=== PATIENT | female | born 1950 | race Caucasian/White ===

== ENCOUNTER 2021-08-01 14:19 | Inpatient (IN) | payer MEDICARE, SELFPAY ==
[2021-08-01] VITALS (13 sets, daily range): BP systolic 106–138; BP diastolic 58–90; PULSE 81–93; RESP 20–32; TEMP 36.6–38; O2SAT 86–95; BMI 31.0
--- NOTE | ~2021-08-01 | XR_ITS ---
EXAMINATION: XR chest 1V portable DATE: 08/13/2021 09:30 INDICATION: Increased oxygen needs TECHNIQUE: frontal view of the chest was obtained. COMPARISON: Chest radiograph dated 08/09/2021 FINDINGS: No significant change in patchy airspace opacities throughout both lungs consistent with COVID pneumo britton. No pleural effusion or pneumothorax. The cardiomediastinal silhouette is normal. IMPRESSION: 1. No significant change in diffuse patchy bilateral lung disease consistent with COVID pneumonia. Reviewed, dictated and finalized at location A. ITAL CLERK IMPRESSION: 1. No significant change in diffuse patchy bilateral lung disease consistent wi th COVID pneumonia.
--- NOTE | ~2021-08-01 | US_ITS ---
EXAMINATION: US venous doppler LE EXAM DATE: 08/15/2021 09:01 INDICATION: Pulmonary embolism. TECHNIQUE: Multiple grayscale, color flow and Doppler images of the lower extremity deep venous syste ms bilaterally were obtained and reviewed. Correlation is made to CT pulmonary scan 08/13/2021. FINDINGS: RIGHT SIDE Common femoral: -------- Normal. Profunda femoral: ------- Normal. Femoral: Normal. Popliteal: Normal. Posterior tibial: --------- Normal. Peroneal: Paired, 1 thrombosed. Gastrocnemius: Not visualized. Soleus: Not visualized. Greater saphenous: ----- Normal. Lesser saphenous: ------ Not visualized. LEFT SIDE Common femoral: -------- Normal. Profunda femoral: ------- Normal. Femoral: Normal. Popliteal: Normal. Posterior tibial: --------- Normal. Peroneal: Normal. Gastrocnemius: Not visualized. Soleus: Not visualized. Greater saphenous: ----- Normal. Lesser saphenous: ------ Not visualized. IMPRESSION: 1. Positive for right peroneal DVT. 2. No left DVT. Finding of pulmonary embolic disease was already verbally conveyed as per pulmonary CT report from 2 days ago. Reviewed, dictated and finalized at location A. SANDER IMPRESSION: 1. Positive for right peroneal DVT. 2. No left DVT. Finding of pulmonary embolic disease was already verbally conveyed as per pulcooper persaud CT report from 2 days ago.
--- NOTE | ~2021-08-01 | CT_ITS ---
EXAMINATION: CTA chest PE protocol DATE: 08/13/2021 18:41 INDICATION: Hypoxia TECHNIQUE: Computed tomography angiography (CTA) of the chest was performed with 100 mL Omnipaque-350 intravenous contrast timed to evaluate the pulmonary arteries. Coronal maximum intensity projection 3D-reconstructions were created by the technologist. The dose-length product (DLP) was 297.57 mGy-cm. Automated exposure control and iterative reconstruction technique were employed. COMPARISON: None. FINDINGS: The pulmonary arteries are well-opacified. There are acute pulmonary emboli in the right up per lobe. There are groundglass opacities throughout all lung zones, worst in the mid and lower lung zones. There is no pleural effusion or pneumothorax. The heart size is normal. Mediastinal and bilate ral hilar lymphadenopathy is likely reactive. There is moderate thoracic spondylosis. IMPRESSION: 1. Acute pulmonary emboli in the right upper lobe. 2. Diffuse lung disease, consistent with COVID 19 pneumonia. These findings were discussed with Gladys Marrero RN at 1701 hours on 08/13/2021. Reviewed, dictated and finalized at location F. WARE TECHNICAL LEAD IMPRESSION: 1. Acute pulmonary emboli in the right upper lobe. 2. Diffuse lung disease, consistent with COVID 19 pneumonia. These findings were discussed with Gladys Marrero RN at 1701 hours on 08/13/19 22.
--- NOTE | ~2021-08-01 | XR_ITS ---
XR chest 1V portable DATE: 08/19/2021 13:00 INDICATION: Covid pneumonia TECHNIQUE: Portable upright AP chest on 08/19/2021 at 1246 hours COMPARISON: 08/13/2021 CTA chest 08/13/2021 portable AP chest FINDINGS: There is extensive patchy bilateral pulmonary infiltrate with little interval improvement s delmy 08/13/2021. Heart size appears normal. No pleural effusion or pneumothorax. Diffuse osteopenia. IMPRESSION: Persistent extensive bilateral pulmonary infiltrates Reviewed, dictated and finalized at location A. DENT PROGRAM SPECIALIST
--- NOTE | ~2021-08-01 | XR_ITS ---
EXAMINATION: XR chest 1V portable EXAM DATE: 08/09/2021 06:17 INDICATION: COVID . TECHNIQUE: Portable AP frontal chest x-ray was obtained. Comparison is made to prior examination from 08/01/2021. FINDINGS: Diffuse peripheral predominant airspace disease consistent with COVID pneumonia, has increa sed compared to 08/01. No pneumothorax or pleural effusion. Cardiomediastinal silhouette is normal. T here are no osseous abnormalities identified. IMPRESSION: Progression of diffuse bilateral COVID pneumonia. Reviewed, dictated and finalized at location G. RITY SALES CONSULTANT
--- NOTE | ~2021-08-01 | XR_ITS ---
EXAMINATION: XR chest 2V EXAM DATE: 08/01/2021 14:54 INDICATION: Shortness of breath and cough for 2 weeks. TECHNIQUE: Frontal and lateral projections of the chest obtained and reviewed. There is no prior domingo dy for comparison. FINDINGS: The lungs are hyperinflated which can be seen with chronic obstructive pulmonary disease ( a clinical diagnosis of functional impairment), but is not diagnostic of it. There is ill-defined jill ateral patchy regions of airspace disease. Some linear regions of atelectasis within this. Differenti al diagnosis includes subacute COVID pneumonia, chronic interstitial lung disease with or without sup erimposed viral or other infection. No pneumothorax or pleural effusion. Cardiomediastinal silhouette is normal. IMPRESSION: Ill-defined patchy basilar predominant atelectasis, pneumonia and/or chronic interstitial lung disease. Reviewed, dictated and finalized at location A. DWORKS DRAFTER IMPRESSION: Ill-defined patchy basilar predominant atelectasis, pneumonia and/o r chronic interstitial lung disease.
--- NOTE | ~2021-08-01 | US_ITS ---
EXAMINATION: US right upper quadrant DATE: 08/09/2021 08:28 INDICATION: Abnormal liver function tests. TECHNIQUE: Multiple grayscale and Doppler ultrasound images of the abdomen were obtained. COMPARISON: CT abdomen 12/12/2005 FINDINGS: The visualized portions of the head, body, and tail of the pancreas are normal. The liver i s normal without focal lesion. No liver surface nodularity. The gallbladder is normal in size. No gal lstones or gallbladder wall thickening. There was no sonographic Bear sign. The common duct is norm al and measures 2 mm. IMPRESSION: 1. Normal right upper quadrant ultrasound. Reviewed, dictated and finalized at location A. TIES ANALYST
--- NOTE | 2021-08-01 14:33 | ECG_ITS ---
Measurements Intervals [place] Rate: 86 P: 50 [place]: 136 QRS: 8 QRSD: 71 T: 5 QT: 332 QTc: 397 Interpretive Statements SINUS RHYTHM POSSIBLE LEFT ATRIAL ENLARGEMENT ANTEROSEPTAL INFARCT, AGE INDETERMINATE BORDERLINE ST-T WAVE ABNORMALITY- INFERIOR LEADS BASELINE ARTIFACT- I, II, III, AVR, AVL, AVF, V1, V5-V6 ABNORMAL ECG Electronically Signed On 08-01-2021 15:44:37 ROOF PANEL HANGER by Avery Ng D.O.
[2021-08-01 14:58] LABS: Hematocrit 38.6 % (37.0-47.0); Hemoglobin 13.4 g/dL (12.0-15.0); Immature Platelet Fraction Pct 5.1 % (0.9-11.2); Mean Corpuscular HGB Conc 34.7 g/dl (32-36); Mean Corpuscular Hemoglobin 31.5 pg (26-34); Mean Corpuscular Volume 90.6 fl (80-100); Mean Platelet Volume 10.4 fl (7.4-10.4); Platelet Count Result 117 k/mm3 (150-375); Red Blood Count 4.26 M/mm3 (4.2-5.4); Red Cell Distribution Width 12.6 % (11.5-14.5); White Blood Count 3.2 K/mm3 (4.5-10.0)
[2021-08-01 15:14] LABS: Alanine Aminotransferase 116 U/L (4-35); Albumin Level 3.7 g/dL (3.5-5.1); Alkaline Phosphatase 108 U/L (38-126); Anion Gap 11 mmol/L (8-16); Aspartate Amino Transferase 163 U/L (14-36); Bilirubin,Total 0.8 mg/dL (0.2-1.3); Blood Urea Nitrogen 18 mg/dL (7-17); Carbon Dioxide 20 mmol/L (22-30); Chloride 98 mmol/L (98-107); Estimated CRCL calculation 53 ml/min; Estimated Glomerular Filt Rate > 60; Glucose 108 mg/dL (65-110); Potassium 4.2 mmol/L (3.4-5.0); Sodium 129 mmol/L (137-145)
--- NOTE | 2021-08-01 16:34 | ED.SOB ---
HPI - SOB/Dyspnea General Chief Complaint: Shortness of Breath/Dyspnea Stated Complaint: low O2 Time Seen by Provider: 08/01/21 15:29 Source: patient and family Mode of arrival: ambulatory Limitations: no limitations History of Present Illness HPI Narrative: 70-year-old with no major medical problems here with complaints of cough, on and off fever for last couple days. She states cough is productive in nature. She denies any nausea or vomiting. She is denies any Covid exposure. MD elicited complaint: shortness of breath and cough Onset (ago): day(s) (2) Timing: constant Severity: mild Exacerbating factors: nothing Relieving factors: nothing Associated symptoms: sputum production Treatment prior to arrival: none Related Data Home oxygen amount: none Allergies Allergy/AdvReac Type Severity Reaction Status Date / Time No Known Allergies Allergy Verified 08/01/21 14:26 Review of Systems Review of Systems: All systems reviewed & are unremarkable except as noted in HPI and below Constitutional: Constitutional: Reports no additional constitutional complaints Eyes: Eyes: Reports no additional eye complaints ENT: Reports system reviewed and no additional complaints, except as documented Cardiovascular: Cardiovascular: Reports no additional cardiovascular complaints Respiratory: Respiratory: Reports as per HPI Gastrointestinal: Gastrointestinal: Reports no additional gastrointestinal complaints Genitourinary: Genitourinary: Reports no additional female genitourinary complaints Musculoskeletal: Musculoskeletal: Reports no additional musculoskeletal complaints Neurologic: Reports system reviewed and no additional complaints, except as documented Exam Narrative: GENERAL: Well-appearing, well-nourished, and in no acute distress. HEAD: Normocephalic, atraumatic. EYES: PERRLA and EOMI. NECK: Supple. CHEST: Clear to auscultation. No respiratory distress. HEART: Regular rate and rhythm. No murmur heard. Normal peripheral pulses. ABDOMEN: Soft, nontender, nondistended, normal active bowel sounds. EXTREMITIES: Normal range of motion. No edema. SKIN: Warm, dry, no rash. NEURO: No focal deficits. Alert and oriented x3. PSYCH: Normal mood and affect. Course Course Emergency Course: Patient comfortably sitting on the bed in no discomfort informed her about her lab work, x-ray findings. SPO2 levels are 95 to 96% on room air. I suspect this more like over 10 community-acquired pneumonia we will do a RT-PCR for Covid. Advised her to follow-up with her primary doctor for the results. Vital Signs Vital signs: Vital Signs Temperature 37.0 C 08/01/21 14:27 Pulse Rate 89 08/01/21 14:27 Respiratory Rate 20 08/01/21 14:27 Blood Pressure 122/71 08/01/21 14:27 Pulse Oximetry 95 08/01/21 14:27 Temperature 37.0 C 08/01/21 14:27 Pulse Rate 88 08/01/21 16:17 Respiratory Rate 24 H 08/01/21 16:17 Blood Pressure 113/84 08/01/21 16:17 Pulse Oximetry 95 08/01/21 16:17 MDM - SOB/Dyspnea Lab Data Result diagrams: 08/01/21 14:42 08/01/21 14:42 Labs: Lab Results 08/01/21 08/01/21 Range/Units 14:42 14:42 WBC 3.2 L (4.5-10.0) K/mm3 RBC 4.26 (4.2-5.4) M/mm3 Hgb 13.4 (12.0-15.0) g/dL Hct 38.6 (37.0-47.0) % MCV 90.6 (80-100) fl MCH 31.5 (26-34) pg MCHC 34.7 (32-36) g/dl RDW 12.6 (11.5-14.5) % Plt Count 117 L (150-375) k/mm3 MPV 10.4 (7.4-10.4) fl Immature Gran % (Auto) Not Reportable Neut % (Auto) Not Reportable Lymph % (Auto) Not Reportable [place]cher % (Auto) Not Reportable Eos % (Auto) Not Reportable Baso % (Auto) Not Reportable Lymph # (Auto) Not Reportable [place]cher # (Auto) Not Reportable Eos # (Auto) Not Reportable Baso # (Auto) Not Reportable Abs Immat Gran (auto) Not Reportable Absolute Neuts (auto) Not Reportable Absolute Nucleated RBC Not Reportable Nucleated RBC % Not R
[2021-08-01 16:38] LABS: Band Neutrophils Percent 29 % (0-6); Lymphocytes Absolute Manual 0.57 K/mm3 (1.1-4.5); Monocytes Absolute Manual 0.19 K/mm3 (0.1-0.90); Monocytes Percent Manual 6 % (3-9); Neutrophils Absolute Manual 2.43 K/mm3 (1.7-7.2); Neutrophils Percent Manual 47 % (46-73); Total Cells Counted 100
[2021-08-01 16:39] LABS: Platelet Estimate Decreased (Adequate)
[2021-08-01 16:40] LABS: Smudge Cells FEW
--- NOTE | 2021-08-01 18:55 | PC.NURSE ---
This patient, Tamara Lion, was admitted to 3 Med Surg Room 309-01. Patient/family oriented to hospital policies and general routines including ID bracelet, bed and alarms, visiting hours, pain management, procedures, bathroom and other care routines, personal items, smoking policy, room service/diet, and visiting hours. Information on how to activate the Rapid Response Team has been discussed. Patient/Family are encouraged to report perceived risks to care and to ask questions if they do not understand what they are told or what they should do.
[2021-08-01] MEDS: SODIUM CHLORIDE 0.9% IV 1,000 ML 75 ML IV CONT (20:46)
[2021-08-01 21:35] LABS: Lactic Acid Reflex 1.2 mmol/L (0.7-2.1)
[2021-08-01 21:40] LABS: D Dimer 2.16 ug/mL (<0.48)
[2021-08-01 22:11] LABS: Lactate Dehydrogenase 2066 U/L (313-618)
[2021-08-02] VITALS (10 sets, daily range): BP systolic 105–121; BP diastolic 54–68; PULSE 83–89; RESP 16–18; TEMP 35.8–38; O2SAT 86–94
[2021-08-02] MEDS: ACETAMINOPHEN 325 MG TABLET 650 MG PO (00:01)
--- NOTE | 2021-08-02 04:32 | PM.IMHP ---
H&P: HPI History of Present Illness Date/Time: 08/02/21 04:32 Chief Complaint: Cough and shortness of breath Narrative: 70-year-old reportedly healthy female who presented to the ER with cough shortness for breath and diarrhea for the last 10 days. Patient reports that the cough is productive of clear mucus. She has not have any known COVID exposures. But does state that her had been having a cough for several days before she developed a cough. She has not vaccinated against COVID-19. She reports that she has been using her mask when out in public. She denies any loss of sense of taste or smell. She had noticed occasional chills but had not measured a temperature. She has had intermittent fevers up to 100.4 since admission. She denies any nausea, vomiting or diarrhea. She has had decreased oral intake. She has been having intermittent mild headaches. She denies any arthralgias or myalgias. She does have occasional stress urinary incontinence but this is unchanged from baseline. She has not taken any [id number] medications for symptoms. She reports that she is relatively healthy. She has not followed up with her primary care physician in at least 5 years. Review of Systems Review of Systems: 12 systems were reviewed with pertinent positives and negatives per HPI. Except as documented in the HPI, all other systems were reviewed and are negative. [facility] Past Medical History Medical History (Updated 08/02/21 @ 08:11 by Sera Guillen DO) No significant medical problems Surgical History Surgical History (Updated 08/02/21 @ 08:11 by Sera Guillen DO) No history of previous surgery Family History Family History (Updated 08/02/21 @ 08:12 by Sera Guillen DO) Father , Age 75 Fletcher's lung Mother , Age 70 Heart failure Social History Social History (Updated 08/02/21 @ 08:14 by Sera Guillen DO) Social History: She lives at home with her of 50 years. 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 She has 2 adult sons who are in good health. She rarely drinks alcohol and only in small amounts. Primary care physician: Dr. Mendoza Graff Code status: Full code Surrogate decision maker: Smoking status: Never smoker Alcohol intake: former Substance use: never Spiritual care concerns: No Comments She has 1 brother who of a drug overdose in his 20s. She had another brother of electrocution in his 30s. She has 1 older brother who is still living and in good health. Meds Home Medications and Allergies Home Medications Medication Instructions Recorded Confirmed Type No Home Medications 08/01/21 08/01/21 History Allergies Allergy/AdvReac Type Severity Reaction Status Date / Time No Known Allergies Allergy Verified 08/01/21 14:26 Vital Signs Vital Signs - 24 hr 08/01/21 14:27 08/01/21 14:33 08/01/21 15:00 Temperature 98.6 F Pulse Rate 89 87 Respiratory Rate 20 Blood Pressure 122/71 Pulse Oximetry 95 95 08/01/21 16:17 08/01/21 17:01 08/01/21 17:03 Temperature Pulse Rate 88 88 87 Respiratory Rate 24 H 25 H 25 H Blood Pressure 113/84 138/67 Pulse Oximetry 95 93 92 08/01/21 17:36 08/01/21 17:46 08/01/21 17:47 Temperature Pulse Rate 88 92 81 Respiratory Rate 32 H 20 28 H Blood Pressure 106/90 Pulse Oximetry 90 87 L 86 L 08/01/21 18:00 08/01/21 18:02 08/01/21 18:50 Temperature 97.9 F Pulse Rate 93 87 93 Respiratory Rate 27 H 22 H 20 Blood Pressure 121/63 134/58 L Pulse Oximetry 89 L 87 L 91 08/01/21 23:44 08/02/21 00:01 08/02/21 04:00 Temperature 100.4 F H 100.4 F H 99.0 F Pulse Rate 89 84 Respiratory Rate 20 18 Blood Pressure 123/66 105/54 L Pulse Oximetry 90 90 Exam Narrative: PHYSICAL EXAM: WEIGHT 79.5 kg BMI 31 General: No acute distress, well-developed well-nourished HEENT: Mucous membranes are
[2021-08-02 06:39] LABS: Hematocrit 38.9 % (37.0-47.0); Hemoglobin 13.3 g/dL (12.0-15.0); Immature Granulocyte Absolute 0.03 K/mm3 (0.00-0.031); Immature Granulocyte Percent A 0.8 % (0-0.5); Immature Platelet Fraction Pct 5.6 % (0.9-11.2); Lymphocytes Absolute Auto 0.65 K/mm3 (0.9-3.2); Lymphocytes Percent Auto 18.2 % (18.3-44.2); Mean Corpuscular HGB Conc 34.2 g/dl (32-36); Mean Corpuscular Hemoglobin 31.8 pg (26-34); Mean Corpuscular Volume 93.1 fl (80-100); Mean Platelet Volume 10.5 fl (7.4-10.4); Monocytes Absolute Auto 0.1 K/mm3 (0.1-0.6); Monocytes Percent Auto 3.4 % (2.6-8.5); Neutrophils Absolute Auto 2.8 K/mm3 (1.3-6.7); Neutrophils Percent Auto 77.6 % (45.5-73.1); Platelet Count Result 138 k/mm3 (150-375); Red Blood Count 4.18 M/mm3 (4.2-5.4); Red Cell Distribution Width 12.7 % (11.5-14.5); White Blood Count 3.6 K/mm3 (4.5-10.0)
[2021-08-02 06:56] LABS: Alanine Aminotransferase 116 U/L (4-35); Albumin Level 3.3 g/dL (3.5-5.1); Alkaline Phosphatase 141 U/L (38-126); Anion Gap 9 mmol/L (8-16); Aspartate Amino Transferase 149 U/L (14-36); Bilirubin,Total 0.9 mg/dL (0.2-1.3); Blood Urea Nitrogen 13 mg/dL (7-17); Calcium 7.8 mg/dL (8.4-10.2); Carbon Dioxide 22 mmol/L (22-30); Chloride 101 mmol/L (98-107); Estimated CRCL calculation 63 ml/min; Estimated Glomerular Filt Rate > 60; Glucose 126 mg/dL (65-110); Potassium 3.8 mmol/L (3.4-5.0); Sodium 132 mmol/L (137-145)
[2021-08-02] MEDS: SODIUM CHLORIDE 0.9% IV 1,000 ML 75 ML IV CONT (10:27)
[2021-08-02] MEDS: WATER FOR IRRIGATION, STERILE 1,000 ML BOTTLE 1000 ML (10:28)
[2021-08-02] MEDS: ENOXAPARIN 40 MG/0.4 ML SYRINGE SUB-Q (10:28)
--- NOTE | 2021-08-02 13:40 | PM.IMPN ---
Progress Note: A&P Assessment and Plan (1) Sepsis with acute hypoxic respiratory failure: Qualifiers: Sepsis type: sepsis due to unspecified organism Severe sepsis shock status: without septic shock Qualified Code(s): A41.9 - Sepsis, unspecified organism; R65.20 - Severe sepsis without septic shock; J96.01 - Acute respiratory failure with hypoxia Code(s): A41.9 - Sepsis, unspecified organism; R65.20 - Severe sepsis without septic shock; J96.01 - Acute respiratory failure with hypoxia Status: Acute (2) Bandemia: Code(s): D72.825 - Bandemia Status: Acute (3) Suspected COVID-19 virus infection: Code(s): Z20.822 - Contact with and (suspected) exposure to COVID-19 Status: Acute (4) Pneumonia: Qualifiers: Laterality: unspecified laterality Lung location: unspecified part of lung Pneumonia type: due to unspecified organism Qualified Code(s): J18.9 - Pneumonia, unspecified organism Code(s): J18.9 - Pneumonia, unspecified organism Status: Acute Additional Plan # acute hypoxic respiratory failure # community-acquired pneumonia -patient has dyspnea, bandemia with leukopenia WBC 3.6 -chest x-ray shows patchy basilar infiltrates pneumonia versus atelectasis -antibiotics: Continue Rocephin and azithromycin -keep oxygen saturation greater than 90%, currently on 10 L oxygen by nasal cannula -COVID-19 test pending -with significant hypoxia continue Decadron -patient was on IV fluids 75 cc an hour, will stop as patient is tolerating p.o. # transaminitis -will continue to trend, slightly elevated AST and ALT -from sepsis and bandemia? # mild hyponatremia -continue to trend sodium 132 # PUI for COVID-19 -patient unvaccinated, COVID-19 test pending Diet: Regular DVT prophylaxis: Lovenox Code status: Full code Disposition: Pending of course, wean oxygen Time Spent With Patient Time with patient: 15 - 25 minutes Subjective Date/time seen: 08/02/21 13:40 patient seen examined she has no new complaints today. Breathing comfortably on 10 L high-flow oxygen. She is not vaccinated for COVID-19, test is still pending. Continuing on community-acquired pneumonia treatment with Rocephin azithromycin. On Decadron possible COVID-19 considering her level of hypoxia. Patient is not taking any home medications. Review of Systems Review of Systems: All systems reviewed & are unremarkable except as noted in HPI and below Exam Narrative: - GENERAL: Pleasant older woman in acute distress. Well-nourished. - EYES: EOMI. Anicteric. - HENT: Moist mucous membranes. - LUNGS: Clear to auscultation bilaterally, nonlabored respirations. - CARDIOVASCULAR: Regular rate and rhythm. No murmur. No JVD. - ABDOMEN: Soft, non-tender and non-distended. No palpable masses. - EXTREMITIES: No edema. Peripheral pulses 2+. Non-tender. - NEUROLOGIC: No focal neurological deficits. CN II-XII grossly intact. - PSYCHIATRIC: Awake, Alert and oriented x 3. Appropriate mood and affect. - SKIN: No rashes or lesions. Warm. - LYMPH: No cervical lymphadenopathy. Objective Data Vital Signs Vital Signs: Vital Signs - 24 hr 08/01/21 14:27 08/01/21 14:33 08/01/21 15:00 Temperature 37.0 C Pulse Rate 89 87 Respiratory Rate 20 Blood Pressure 122/71 Pulse Oximetry 95 95 08/01/21 16:17 08/01/21 17:01 08/01/21 17:03 Temperature Pulse Rate 88 88 87 Respiratory Rate 24 H 25 H 25 H Blood Pressure 113/84 138/67 Pulse Oximetry 95 93 92 08/01/21 17:36 08/01/21 17:46 08/01/21 17:47 Temperature Pulse Rate 88 92 81 Respiratory Rate 32 H 20 28 H Blood Pressure 106/90 Pulse Oximetry 90 87 L 86 L 08/01/21 18:00 08/01/21 18:02 08/01/21 18:50 Temperature 36.6 C Pulse Rate 93 87 93 Respiratory Rate 27 H 22 H 20 Blood Pressure 121/63 134/58 L Pulse Oximetry 89 L 87 L 91 08/01/21 23:44 08/02/21 00:01 08/02/21 01:01 Temperature 38.0 C H 38.0 C H 37.2 C Pulse Rate 89
[2021-08-02 14:05] LABS: SARS-CoV-2 RNA PCR Positive
[2021-08-03 00:15] VITALS: BP 118/67; PULSE 74; RESP 16; TEMP 36.5; O2SAT 94
[2021-08-03 04:10] VITALS: BP 103/71; PULSE 76; RESP 16; TEMP 36.4; O2SAT 100
[2021-08-03 07:33] LABS: Basophils Percent Auto 0.2 % (0.2-1.2); Hematocrit 38.3 % (37.0-47.0); Hemoglobin 12.8 g/dL (12.0-15.0); Immature Granulocyte Absolute 0.04 K/mm3 (0.00-0.031); Immature Granulocyte Percent A 0.7 % (0-0.5); Lymphocytes Absolute Auto 0.39 K/mm3 (0.9-3.2); Mean Corpuscular HGB Conc 33.4 g/dl (32-36); Mean Corpuscular Hemoglobin 30.9 pg (26-34); Mean Corpuscular Volume 92.5 fl (80-100); Mean Platelet Volume 10.6 fl (7.4-10.4); Monocytes Absolute Auto 0.1 K/mm3 (0.1-0.6); Monocytes Percent Auto 2.5 % (2.6-8.5); Neutrophils Percent Auto 89.6 % (45.5-73.1); Platelet Count Result 165 k/mm3 (150-375); Red Blood Count 4.14 M/mm3 (4.2-5.4); Red Cell Distribution Width 12.6 % (11.5-14.5); White Blood Count 5.6 K/mm3 (4.5-10.0)
[2021-08-03 07:45] LABS: Anion Gap 7 mmol/L (8-16); Blood Urea Nitrogen 12 mg/dL (7-17); Carbon Dioxide 25 mmol/L (22-30); Chloride 103 mmol/L (98-107); Estimated CRCL calculation 73 ml/min; Estimated Glomerular Filt Rate > 60; Glucose 152 mg/dL (65-110); Potassium 4.1 mmol/L (3.4-5.0); Sodium 135 mmol/L (137-145)
[2021-08-03 08:00] VITALS: BP 127/60; PULSE 78; RESP 20; TEMP 36.2; O2SAT 92
[2021-08-03 09:00] LABS: Alanine Aminotransferase 91 U/L (4-35); Estimated CRCL calculation 73 ml/min; Estimated Glomerular Filt Rate > 60
[2021-08-03 09:09] LABS: INR 1.1; Prothrombin Time 14.1 Seconds (11.1-14.7)
[2021-08-03] MEDS: ENOXAPARIN 40 MG/0.4 ML SYRINGE SUB-Q (10:58)
[2021-08-03 12:00] VITALS: BP 126/61; PULSE 92; RESP 20; TEMP 36.9; O2SAT 92
--- NOTE | 2021-08-03 13:23 | PM.IMPN ---
Progress Note: A&P Assessment and Plan (1) Sepsis with acute hypoxic respiratory failure: Qualifiers: Sepsis type: sepsis due to unspecified organism Severe sepsis shock status: without septic shock Qualified Code(s): A41.9 - Sepsis, unspecified organism; R65.20 - Severe sepsis without septic shock; J96.01 - Acute respiratory failure with hypoxia Code(s): A41.9 - Sepsis, unspecified organism; R65.20 - Severe sepsis without septic shock; J96.01 - Acute respiratory failure with hypoxia Status: Acute (2) Pneumonia due to COVID-19 virus: Code(s): U07.1 - COVID-19; J12.82 - Pneumonia due to coronavirus disease 2018 Status: Acute Additional Plan # COVID-19 pneumonia # acute hypoxic respiratory failure -COVID-19 positive 08/02/21, unvaccinated -keep oxygen saturation greater than 90%, currently on 15 L oxygen by nasal cannula -treatment plan: Decadron 10 day course of 6 mg, patient refused remdesivir, patient okay with baricitinib starting on 08/03/2021 -patient has dyspnea, bandemia with leukopenia WBC 3.6, leukopenia resolved -chest x-ray shows patchy basilar infiltrates pneumonia versus atelectasis -antibiotics: Stopping antibiotics with no sputum production and COVID 19 diagnosis, afebrile # transaminitis -will continue to trend, slightly elevated AST and ALT -stable, will continue to trend while on baricitinib, transaminitis occured prior to medication # mild hyponatremia -continue to trend sodium 135, improved Diet: Regular DVT prophylaxis: Lovenox Code status: Full code, patient will talk to family and readdress goals of care Disposition: Pending of course, wean oxygen Subjective Date/time seen: 08/03/21 13:23 Patient seen examined. She has been diagnosed with COVID-19 on the PCR test. Currently on 15 L of oxygen by nasal cannula. We discussed COVID-19 treatment plan, she refuses remdesivir absolutely. She is okay with baricitinib and Decadron. We discussed code status and possible intubation, she says she does not want to be on a ventilator however to would like to talk to her family 1st. Will readdress code status later, continue full code for now. We will continue supportive care for COVID 19 diagnosis. Patient denies fever, chills, nausea, vomiting, diarrhea. She feels good despite being hypoxic. Review of Systems Review of Systems: All systems reviewed & are unremarkable except as noted in HPI and below Exam Narrative: - GENERAL: Pleasant older woman in acute distress. Well-nourished. - EYES: EOMI. Anicteric. - HENT: Moist mucous membranes. - LUNGS: Clear to auscultation bilaterally, using accessory muscles to breathe, currently on 15 L of oxygen by nasal cannula. - CARDIOVASCULAR: Regular rate and rhythm. No murmur. No JVD. - ABDOMEN: Soft, non-tender and non-distended. No palpable masses. - EXTREMITIES: No edema. Peripheral pulses 2+. Non-tender. - NEUROLOGIC: No focal neurological deficits. CN II-XII grossly intact. - PSYCHIATRIC: Awake, Alert and oriented x 3. Appropriate mood and affect. - SKIN: No rashes or lesions. Warm. - LYMPH: No cervical lymphadenopathy. Objective Data Vital Signs Vital Signs: Vital Signs - 24 hr 08/02/21 13:43 08/02/21 20:00 08/03/21 00:15 Temperature 36.7 C 36.2 C L 36.5 C Pulse Rate 89 85 74 Respiratory Rate 18 16 16 Blood Pressure 108/68 121/62 118/67 Pulse Oximetry 90 94 94 08/03/21 04:10 08/03/21 08:00 Temperature 36.4 C L 36.2 C L Pulse Rate 76 78 Respiratory Rate 16 20 Blood Pressure 103/71 127/60 Pulse Oximetry 100 92 Intake/Output Intake/Output: Intake & Output 07/31/21 08/01/21 08/02/21 08/03/21 23:59 23:59 23:59 23:59 Intake Total 50 2520 300 Output Total 1400 Balance 50 1120 300 Meds/Results Medications: Active Medications Generic Name Dose Route Start Last Admin Trade Name Freq PRN Reason Stop Dose Admin Acetaminophen 650 mg 08/01/21 17:16 08/02/21 00:01 Acetaminophen 325 Mg Tablet P
[2021-08-03 16:00] VITALS: BP 116/67; PULSE 80; RESP 18; TEMP 36.6; O2SAT 94
[2021-08-03 20:00] VITALS: BP 133/76; PULSE 83; RESP 18; TEMP 36.5; O2SAT 95
[2021-08-04] VITALS (12 sets, daily range): BP systolic 112–144; BP diastolic 53–91; PULSE 70–92; RESP 20–24; TEMP 35.6–37; O2SAT 89–95
[2021-08-04 07:08] LABS: Basophils Percent Auto 0.2 % (0.2-1.2); Hematocrit 38.9 % (37.0-47.0); Hemoglobin 13.3 g/dL (12.0-15.0); Immature Granulocyte Absolute 0.08 K/mm3 (0.00-0.031); Lymphocytes Absolute Auto 0.51 K/mm3 (0.9-3.2); Lymphocytes Percent Auto 6.3 % (18.3-44.2); Mean Corpuscular HGB Conc 34.2 g/dl (32-36); Mean Corpuscular Hemoglobin 31.3 pg (26-34); Mean Corpuscular Volume 91.5 fl (80-100); Monocytes Absolute Auto 0.3 K/mm3 (0.1-0.6); Monocytes Percent Auto 3.2 % (2.6-8.5); Neutrophils Absolute Auto 7.2 K/mm3 (1.3-6.7); Neutrophils Percent Auto 89.3 % (45.5-73.1); Platelet Count Result 220 k/mm3 (150-375); Red Blood Count 4.25 M/mm3 (4.2-5.4); Red Cell Distribution Width 12.7 % (11.5-14.5); White Blood Count 8.1 K/mm3 (4.5-10.0)
[2021-08-04 07:16] LABS: Alanine Aminotransferase 100 U/L (4-35); Albumin Level 3.1 g/dL (3.5-5.1); Alkaline Phosphatase 166 U/L (38-126); Anion Gap 8 mmol/L (8-16); Aspartate Amino Transferase 84 U/L (14-36); Bilirubin,Total 1.1 mg/dL (0.2-1.3); Blood Urea Nitrogen 16 mg/dL (7-17); CRP 6.7 mg/dL (<1.0); Calcium 8.2 mg/dL (8.4-10.2); Carbon Dioxide 22 mmol/L (22-30); Chloride 105 mmol/L (98-107); Estimated CRCL calculation 73 ml/min; Estimated Glomerular Filt Rate > 60; Glucose 139 mg/dL (65-110); Sodium 135 mmol/L (137-145)
[2021-08-04 07:25] LABS: Prothrombin Time 13.4 Seconds (11.1-14.7)
[2021-08-04 07:27] LABS: D Dimer 3.99 ug/mL (<0.48)
[2021-08-04] MEDS: ENOXAPARIN 40 MG/0.4 ML SYRINGE SUB-Q (09:46)
--- NOTE | 2021-08-04 14:20 | PM.IMPN ---
Progress Note: A&P Assessment and Plan (1) Pneumonia due to COVID-19 virus: Code(s): U07.1 - COVID-19; J12.82 - Pneumonia due to coronavirus disease 2019 Status: Acute (2) Sepsis with acute hypoxic respiratory failure: Qualifiers: Sepsis type: sepsis due to unspecified organism Severe sepsis shock status: without septic shock Qualified Code(s): A41.9 - Sepsis, unspecified organism; R65.20 - Severe sepsis without septic shock; J96.01 - Acute respiratory failure with hypoxia Code(s): A41.9 - Sepsis, unspecified organism; R65.20 - Severe sepsis without septic shock; J96.01 - Acute respiratory failure with hypoxia Status: Acute Additional Plan # COVID-19 pneumonia # acute hypoxic respiratory failure -COVID-19 positive 08/02/21, unvaccinated -keep oxygen saturation greater than 90%, currently on 15 L oxygen by nasal cannula and 15 L non-rebreather, switching to airvo -treatment plan: Decadron 10 day course of 6 mg, patient refused remdesivir and baricitinib -chest x-ray shows patchy basilar infiltrates pneumonia versus atelectasis -she still full code, did not want intubation but also does not want to so she is listed as full code # transaminitis -will continue to trend, slightly elevated AST and ALT -stable, will continue to trend while on baricitinib, transaminitis occured prior to medication # mild hyponatremia -continue to trend sodium 135, improved Diet: Regular DVT prophylaxis: Lovenox Code status: Full code, patient will talk to family and readdress goals of care Disposition: Moved to IMU for Airvo Social: I called update the who did not package pick up. Patient asked me to talk to her son however information is not in the chart for his phone number Subjective Date/time seen: 08/04/21 14:20 Patient seen examined. She refuses remdesivir and baricitinib. She is okay with the dexamethasone which we are continuing. Patient oxygen requirements have gone up to now 15 L high-flow oxygen and 15 L non-rebreather. Will moved to IMU for further management on Airvo. Patient asked me to talk to her son however I cannot find any information of the son's phone number in the chart. Patient denies fever, chills, nausea, vomiting, diarrhea. She endorses dyspnea on exertion, needs to work very hard to breathe. Review of Systems Review of Systems: All systems reviewed & are unremarkable except as noted in HPI and below Exam Narrative: - GENERAL: Pleasant older woman in acute respiratory distress. - EYES: EOMI. Anicteric. - HENT: Moist mucous membranes. - LUNGS: Clear to auscultation bilaterally, using accessory muscles to breathe, currently on 15 L of oxygen by nasal cannula and 15 L non-rebreather. - CARDIOVASCULAR: Regular rate and rhythm. No murmur. No JVD. - ABDOMEN: Soft, non-tender and non-distended. No palpable masses. - EXTREMITIES: No edema. Peripheral pulses 2+. Non-tender. - NEUROLOGIC: No focal neurological deficits. CN II-XII grossly intact. - PSYCHIATRIC: Awake, Alert and oriented x 3. Anxious mood and affect. - SKIN: No rashes or lesions. Warm. - LYMPH: No cervical lymphadenopathy. Objective Data Vital Signs Vital Signs: Vital Signs - 24 hr 08/03/21 16:00 08/03/21 20:00 08/04/21 00:00 Temperature 36.6 C 36.5 C 36.7 C Pulse Rate 80 83 86 Respiratory Rate 18 18 20 Blood Pressure 116/67 133/76 144/68 H Pulse Oximetry 94 95 91 08/04/21 04:00 08/04/21 08:00 08/04/21 12:00 Temperature 36.3 C L 36.4 C 37.0 C Pulse Rate 88 73 86 Respiratory Rate 20 24 H 24 H Blood Pressure 112/91 H 116/53 L 121/58 L Pulse Oximetry 92 95 94 Intake/Output Intake/Output: Intake & Output 08/01/21 08/02/21 08/03/21 08/04/21 23:59 23:59 23:59 23:59 Intake Total 50 2520 2019 360 Output Total 1400 Balance 50 1120 2020 360 Meds/Results Medications: Active Medications Generic Name Dose Route Start Last Admin Trade Name Freq PRN Reason Stop Dose Admin Acetaminophen 650 m
--- NOTE | 2021-08-04 14:36 | PC.NURSE ---
This patient, Tamara Lion, was received from [facility] on 08/04/21 at 1434. Patient/family oriented to unit policies and routines
[2021-08-05] VITALS (16 sets, daily range): BP systolic 136–150; BP diastolic 73–79; PULSE 74–97; RESP 20–24; TEMP 36.2–37.1; O2SAT 89–98
[2021-08-05 05:34] LABS: Basophils Percent Auto 0.2 % (0.2-1.2); Eosinophils Percent Auto 0.1 % (0-4.4); Hematocrit 39.7 % (37.0-47.0); Hemoglobin 13.6 g/dL (12.0-15.0); Immature Granulocyte Absolute 0.17 K/mm3 (0.00-0.031); Immature Granulocyte Percent A 1.8 % (0-0.5); Lymphocytes Absolute Auto 0.64 K/mm3 (0.9-3.2); Lymphocytes Percent Auto 6.8 % (18.3-44.2); Mean Corpuscular HGB Conc 34.3 g/dl (32-36); Mean Corpuscular Hemoglobin 31.3 pg (26-34); Mean Corpuscular Volume 91.5 fl (80-100); Mean Platelet Volume 9.7 fl (7.4-10.4); Monocytes Absolute Auto 0.4 K/mm3 (0.1-0.6); Monocytes Percent Auto 3.7 % (2.6-8.5); Neutrophils Absolute Auto 8.3 K/mm3 (1.3-6.7); Neutrophils Percent Auto 87.4 % (45.5-73.1); Platelet Count Result 236 k/mm3 (150-375); Red Blood Count 4.34 M/mm3 (4.2-5.4); Red Cell Distribution Width 12.5 % (11.5-14.5); White Blood Count 9.4 K/mm3 (4.5-10.0)
[2021-08-05 05:43] LABS: INR 1.2; Prothrombin Time 14.6 Seconds (11.1-14.7)
[2021-08-05 05:49] LABS: Alanine Aminotransferase 151 U/L (4-35); Albumin Level 3.1 g/dL (3.5-5.1); Alkaline Phosphatase 205 U/L (38-126); Anion Gap 10 mmol/L (8-16); Aspartate Amino Transferase 155 U/L (14-36); Bilirubin,Total 1.3 mg/dL (0.2-1.3); Blood Urea Nitrogen 19 mg/dL (7-17); Calcium 8.4 mg/dL (8.4-10.2); Carbon Dioxide 22 mmol/L (22-30); Chloride 104 mmol/L (98-107); Estimated CRCL calculation 63 ml/min; Estimated Glomerular Filt Rate > 60; Glucose 141 mg/dL (65-110); Potassium 4.2 mmol/L (3.4-5.0); Sodium 136 mmol/L (137-145)
[2021-08-05] MEDS: ENOXAPARIN 40 MG/0.4 ML SYRINGE SUB-Q (09:08)
--- NOTE | 2021-08-05 10:45 | PM.IMPN ---
Progress Note: A&P Assessment and Plan (1) Pneumonia due to COVID-19 virus: Code(s): U07.1 - COVID-19; J12.82 - Pneumonia due to coronavirus disease 2019 Status: Acute (2) Sepsis with acute hypoxic respiratory failure: Qualifiers: Sepsis type: sepsis due to unspecified organism Severe sepsis shock status: without septic shock Qualified Code(s): A41.9 - Sepsis, unspecified organism; R65.20 - Severe sepsis without septic shock; J96.01 - Acute respiratory failure with hypoxia Code(s): A41.9 - Sepsis, unspecified organism; R65.20 - Severe sepsis without septic shock; J96.01 - Acute respiratory failure with hypoxia Status: Acute Additional Plan # COVID-19 pneumonia # acute hypoxic respiratory failure -COVID-19 positive 08/02/21, unvaccinated -keep oxygen saturation greater than 90%, on Airvo 55L 80% -treatment plan: Decadron 10 day course of 6 mg, patient refused remdesivir and baricitinib -chest x-ray shows patchy basilar infiltrates pneumonia versus atelectasis -she still full code, did not want intubation but also does not want to so she is listed as full code -p.r.n. Tylenol # transaminitis -will continue to trend, slightly elevated AST and ALT, persistent -has not received any baricitinib or remdesivir # mild hyponatremia, resolved -sodium up to 141 Diet: Regular DVT prophylaxis: Lovenox Code status: Full code Disposition: IMU for airvo, pending O2 requirements Social: she wants son to be POA Subjective Date/time seen: 08/05/21 10:45 Patient seen examined. She has COVID-19. She has been moved to IMU yesterday for Airvo. Now on 55 L 80% FiO2, she feels much better on the Airvo. She is only on Decadron in absolutely refuses once again the remdesivir and baricitinib. We discussed code status and she is full code. She is being hesitant about intubation however we discussed that being full code but do not intubate does not make any sense. I think she understands. Patient denies fever, chills, nausea, vomiting, diarrhea. She endorses dyspnea but feels better on Airvo. Review of Systems Review of Systems: All systems reviewed & are unremarkable except as noted in HPI and below Exam Narrative: - GENERAL: Pleasant older woman in acute respiratory distress. - EYES: EOMI. Anicteric. - HENT: Moist mucous membranes. - LUNGS: Clear to auscultation bilaterally, using accessory muscles to breathe, currently Airvo 55 L an 80% FiO2 - CARDIOVASCULAR: Regular rate and rhythm. No murmur. No JVD. - ABDOMEN: Soft, non-tender and non-distended. No palpable masses. - EXTREMITIES: No edema. Peripheral pulses 2+. Non-tender. - NEUROLOGIC: No focal neurological deficits. CN II-XII grossly intact. - PSYCHIATRIC: Awake, Alert and oriented x 3. Anxious mood and affect. - SKIN: No rashes or lesions. Warm. - LYMPH: No cervical lymphadenopathy. Objective Data Vital Signs Vital Signs: Vital Signs - 24 hr 08/04/21 12:00 08/04/21 15:26 08/04/21 16:00 Temperature 37.0 C Pulse Rate 86 86 Respiratory Rate 24 H Blood Pressure 121/58 L Pulse Oximetry 95 90 93 08/04/21 16:38 08/04/21 18:00 08/04/21 20:00 Temperature 35.6 C L 36.4 C L Pulse Rate 91 70 92 Respiratory Rate 22 H 22 H Blood Pressure 136/71 142/83 H Pulse Oximetry 92 92 08/04/21 21:58 08/04/21 22:00 08/04/21 23:57 Temperature 36.4 C Pulse Rate 84 76 92 Respiratory Rate 22 H 22 H Blood Pressure 144/74 H Pulse Oximetry 93 89 L 08/05/21 00:00 08/05/21 01:00 08/05/21 02:00 Temperature Pulse Rate 92 88 74 Respiratory Rate 22 H 22 H 24 H Blood Pressure Pulse Oximetry 89 L 93 91 08/05/21 03:59 08/05/21 04:00 08/05/21 04:20 Temperature 36.9 C Pulse Rate 91 91 92 Respiratory Rate 20 20 24 H Blood Pressure 150/78 H Pulse Oximetry 92 92 91 08/05/21 05:56 08/05/21 08:00 08/05/21 08:49 Temperature 36.3 C L Pulse Rate 94 92 88 Respiratory Rate 22 H 22 H Blood Pressure 141/74 H Pulse
[2021-08-06] VITALS (15 sets, daily range): BP systolic 122–148; BP diastolic 70–83; PULSE 66–99; RESP 20–30; TEMP 36.7–37.1; O2SAT 90–98
[2021-08-06 06:12] LABS: Basophils Percent Auto 0.2 % (0.2-1.2); Eosinophils Percent Auto 0.5 % (0-4.4); Hematocrit 38.4 % (37.0-47.0); Hemoglobin 12.9 g/dL (12.0-15.0); Immature Granulocyte Absolute 0.17 K/mm3 (0.00-0.031); Immature Granulocyte Percent A 1.9 % (0-0.5); Lymphocytes Absolute Auto 0.71 K/mm3 (0.9-3.2); Lymphocytes Percent Auto 8.1 % (18.3-44.2); Mean Corpuscular HGB Conc 33.6 g/dl (32-36); Mean Corpuscular Hemoglobin 31.8 pg (26-34); Mean Corpuscular Volume 94.6 fl (80-100); Mean Platelet Volume 9.9 fl (7.4-10.4); Monocytes Absolute Auto 0.3 K/mm3 (0.1-0.6); Monocytes Percent Auto 2.9 % (2.6-8.5); Neutrophils Absolute Auto 7.5 K/mm3 (1.3-6.7); Neutrophils Percent Auto 86.4 % (45.5-73.1); Platelet Count Result 210 k/mm3 (150-375); Red Blood Count 4.06 M/mm3 (4.2-5.4); White Blood Count 8.7 K/mm3 (4.5-10.0)
[2021-08-06 06:19] LABS: Alanine Aminotransferase 178 U/L (4-35); Albumin Level 3.1 g/dL (3.5-5.1); Alkaline Phosphatase 191 U/L (38-126); Anion Gap 4 mmol/L (8-16); Aspartate Amino Transferase 126 U/L (14-36); Blood Urea Nitrogen 21 mg/dL (7-17); Calcium 8.3 mg/dL (8.4-10.2); Carbon Dioxide 24 mmol/L (22-30); Chloride 106 mmol/L (98-107); Estimated CRCL calculation 63 ml/min; Estimated Glomerular Filt Rate > 60; Glucose 103 mg/dL (65-110); Potassium 4.3 mmol/L (3.4-5.0); Sodium 134 mmol/L (137-145)
[2021-08-06] MEDS: ENOXAPARIN 40 MG/0.4 ML SYRINGE SUB-Q (08:54)
--- NOTE | 2021-08-06 12:35 | PM.IMPN ---
Progress Note: A&P Assessment and Plan (1) Pneumonia due to COVID-19 virus: Code(s): U07.1 - COVID-19; J12.82 - Pneumonia due to coronavirus disease 2019 Status: Acute (2) Sepsis with acute hypoxic respiratory failure: Qualifiers: Sepsis type: sepsis due to unspecified organism Severe sepsis shock status: without septic shock Qualified Code(s): A41.9 - Sepsis, unspecified organism; R65.20 - Severe sepsis without septic shock; J96.01 - Acute respiratory failure with hypoxia Code(s): A41.9 - Sepsis, unspecified organism; R65.20 - Severe sepsis without septic shock; J96.01 - Acute respiratory failure with hypoxia Status: Acute Additional Plan # COVID-19 pneumonia # acute hypoxic respiratory failure -COVID-19 positive 08/02/21, unvaccinated -keep oxygen saturation greater than 90%, on Airvo 55L 80% -treatment plan: Decadron 10 day course of 6 mg, patient refused remdesivir and baricitinib -chest x-ray shows patchy basilar infiltrates pneumonia versus atelectasis -she still full code, did not want intubation but also does not want to so she is listed as full code -p.r.n. Tylenol # transaminitis -will continue to trend, slightly elevated AST and ALT, persistent -has not received any baricitinib or remdesivir # mild hyponatremia -sodium 134 Diet: Regular DVT prophylaxis: Lovenox Code status: Full code Disposition: IMU for airvo, pending O2 requirements Social: son is POA Subjective Date/time seen: 08/06/21 12:35 Patient seen and examined. No new real change, up to 50 L and 90% FiO2 on Airvo. She has no new complaints. We will continue the Decadron. Give trial of 20mg IV lasix. Otherwise continue Decadron. Denies fever, chills, nausea, vomiting, diarrhea, chest pain, abdominal pain. Review of Systems Review of Systems: All systems reviewed & are unremarkable except as noted in HPI and below Exam Narrative: - GENERAL: Pleasant older woman in acute respiratory distress. - EYES: EOMI. Anicteric. - HENT: Moist mucous membranes. - LUNGS: Clear to auscultation bilaterally, using accessory muscles to breathe, currently Airvo 50 L an 90% FiO2 - CARDIOVASCULAR: Regular rate and rhythm. No murmur. No JVD. - ABDOMEN: Soft, non-tender and non-distended. No palpable masses. - EXTREMITIES: No edema. Peripheral pulses 2+. Non-tender. - NEUROLOGIC: No focal neurological deficits. CN II-XII grossly intact. - PSYCHIATRIC: Awake, Alert and oriented x 3. Anxious mood and affect. - SKIN: No rashes or lesions. Warm. - LYMPH: No cervical lymphadenopathy. Objective Data Vital Signs Vital Signs: Vital Signs - 24 hr 08/05/21 14:00 08/05/21 16:00 08/05/21 18:00 Temperature 36.2 C L Pulse Rate 94 83 76 Respiratory Rate 22 H Blood Pressure 138/77 Pulse Oximetry 98 08/05/21 20:00 08/05/21 21:38 08/06/21 00:00 Temperature 37.1 C 36.9 C Pulse Rate 78 80 86 Respiratory Rate 20 20 Blood Pressure 136/73 141/83 H Pulse Oximetry 94 93 08/06/21 02:00 08/06/21 02:35 08/06/21 03:44 Temperature Pulse Rate 85 83 69 Respiratory Rate 20 Blood Pressure Pulse Oximetry 95 95 08/06/21 04:00 08/06/21 06:00 08/06/21 08:00 Temperature 36.9 C 36.7 C Pulse Rate 81 68 81 Respiratory Rate 20 20 Blood Pressure 148/82 H 133/70 Pulse Oximetry 98 95 08/06/21 10:00 08/06/21 12:00 Temperature Pulse Rate 88 88 Respiratory Rate 20 Blood Pressure Pulse Oximetry 95 Intake/Output Intake/Output: Intake & Output 08/03/21 08/04/21 08/05/21 08/06/21 23:59 23:59 23:59 23:59 Intake Total 2019 600 480 Balance 2019 600 480 Meds/Results Medications: Active Medications Generic Name Dose Route Start Last Admin Trade Name Freq PRN Reason Stop Dose Admin Acetaminophen 650 mg 08/01/21 17:16 08/02/21 00:01 Acetaminophen 325 Mg Tablet PO 650 mg Q4H PRN Administration Mild Pain (1-3) or Fever Dexamethasone Sodium Phosphate 6 mg 08/02/21 09:00 01
[2021-08-06] MEDS: FUROSEMIDE INJ 40 MG/4 ML VIAL 20 MG IV PUSH (13:19)
[2021-08-07] VITALS (14 sets, daily range): BP systolic 120–146; BP diastolic 61–74; PULSE 55–112; RESP 20–26; TEMP 36.2–37.3; O2SAT 90–100
[2021-08-07 05:15] LABS: Basophils Percent Auto 0.4 % (0.2-1.2); Eosinophils Absolute Auto 0.1 K/mm3 (0-0.3); Eosinophils Percent Auto 1.4 % (0-4.4); Hematocrit 38.8 % (37.0-47.0); Hemoglobin 13.5 g/dL (12.0-15.0); Immature Granulocyte Percent A 2.6 % (0-0.5); Lymphocytes Absolute Auto 0.79 K/mm3 (0.9-3.2); Lymphocytes Percent Auto 10.2 % (18.3-44.2); Mean Corpuscular HGB Conc 34.8 g/dl (32-36); Mean Corpuscular Hemoglobin 31.6 pg (26-34); Mean Corpuscular Volume 90.9 fl (80-100); Mean Platelet Volume 10.2 fl (7.4-10.4); Monocytes Absolute Auto 0.2 K/mm3 (0.1-0.6); Monocytes Percent Auto 2.4 % (2.6-8.5); Neutrophils Absolute Auto 6.5 K/mm3 (1.3-6.7); Platelet Count Result 219 k/mm3 (150-375); Red Blood Count 4.27 M/mm3 (4.2-5.4); Red Cell Distribution Width 12.5 % (11.5-14.5); White Blood Count 7.8 K/mm3 (4.5-10.0)
[2021-08-07 05:28] LABS: Anion Gap 8 mmol/L (8-16); Blood Urea Nitrogen 23 mg/dL (7-17); Calcium 8.4 mg/dL (8.4-10.2); Carbon Dioxide 23 mmol/L (22-30); Chloride 103 mmol/L (98-107); Estimated CRCL calculation 63 ml/min; Estimated Glomerular Filt Rate > 60; Glucose 102 mg/dL (65-110); Potassium 4.2 mmol/L (3.4-5.0); Sodium 134 mmol/L (137-145)
[2021-08-07] MEDS: ENOXAPARIN 40 MG/0.4 ML SYRINGE SUB-Q (08:53)
--- NOTE | 2021-08-07 10:10 | PM.IMPN ---
Progress Note: A&P Assessment and Plan (1) Pneumonia due to COVID-19 virus: Code(s): U07.1 - COVID-19; J12.82 - Pneumonia due to coronavirus disease 2019 Status: Acute (2) Sepsis with acute hypoxic respiratory failure: Qualifiers: Sepsis type: sepsis due to unspecified organism Severe sepsis shock status: without septic shock Qualified Code(s): A41.9 - Sepsis, unspecified organism; R65.20 - Severe sepsis without septic shock; J96.01 - Acute respiratory failure with hypoxia Code(s): A41.9 - Sepsis, unspecified organism; R65.20 - Severe sepsis without septic shock; J96.01 - Acute respiratory failure with hypoxia Status: Acute Additional Plan # COVID-19 pneumonia # acute hypoxic respiratory failure -COVID-19 positive 08/02/21, unvaccinated -keep oxygen saturation greater than 90%, on Airvo 55L 80% -treatment plan: Decadron 10 day course of 6 mg, patient refused remdesivir and baricitinib -chest x-ray shows patchy basilar infiltrates pneumonia versus atelectasis -she still full code, did not want intubation but also does not want to so she is listed as full code -p.r.n. Tylenol -labs have been stable # transaminitis -transaminitis has been stable and elevated -has not received any baricitinib or remdesivir # mild hyponatremia -sodium 134, appears stable Diet: Regular DVT prophylaxis: Lovenox Code status: Full code Disposition: IMU for airvo, pending O2 requirements Social: son is POA Subjective Date/time seen: 08/07/21 10:10 Patient seen examined today. No overnight events. Patient doing well on the Airvo on 50 L 70% FiO2. She was complaining of being bored and now has some books to read. She denies fever, chills, nausea, vomiting, chest pain. She endorses cough and states she is breathing okay. Review of Systems Review of Systems: All systems reviewed & are unremarkable except as noted in HPI and below Exam Narrative: - GENERAL: Pleasant older woman in no acute distress breathing comfortably on Airvo - EYES: EOMI. Anicteric. - HENT: Moist mucous membranes. - LUNGS: Diminished lung sounds, currently Airvo 50 L an 70% FiO2 - CARDIOVASCULAR: Regular rate and rhythm. - ABDOMEN: Soft, non-tender and non-distended. No palpable masses. - EXTREMITIES: No edema. Peripheral pulses 2+. Non-tender. - NEUROLOGIC: No focal neurological deficits. CN II-XII grossly intact. - PSYCHIATRIC: Awake, Alert and oriented x 3. Appropriate mood and affect. - SKIN: No rashes or lesions. Warm. - LYMPH: No cervical lymphadenopathy. Objective Data Vital Signs Vital Signs: Vital Signs - 24 hr 08/06/21 12:00 08/06/21 14:00 08/06/21 16:00 Temperature 36.8 C 37.1 C Pulse Rate 83 80 92 Respiratory Rate 20 22 H Blood Pressure 140/77 122/77 Pulse Oximetry 97 98 08/06/21 18:00 08/06/21 20:00 08/06/21 22:00 Temperature 36.9 C Pulse Rate 91 77 99 Respiratory Rate 30 H Blood Pressure 145/71 H Pulse Oximetry 93 08/06/21 23:17 08/07/21 00:00 08/07/21 02:00 Temperature 37.1 C Pulse Rate 77 60 78 Respiratory Rate 20 20 Blood Pressure 137/71 Pulse Oximetry 93 93 08/07/21 04:00 08/07/21 06:00 08/07/21 08:00 Temperature 37.2 C 37.2 C Pulse Rate 112 H 77 92 Respiratory Rate 20 26 H Blood Pressure 146/74 H 127/67 Pulse Oximetry 92 91 08/07/21 10:06 Temperature Pulse Rate Respiratory Rate Blood Pressure Pulse Oximetry 92 Intake/Output Intake/Output: Intake & Output 08/04/21 08/05/21 08/06/21 08/07/21 23:59 23:59 23:59 23:59 Intake Total 600 480 240 Output Total 450 Balance 600 480 240 -450 Meds/Results Medications: Active Medications Generic Name Dose Route Start Last Admin Trade Name Freq PRN Reason Stop Dose Admin Acetaminophen 650 mg 08/01/21 17:16 08/02/21 00:01 Acetaminophen 325 Mg Tablet PO 650 mg Q4H PRN Administration Mild Pain (1-3) or Fever Dexamethasone Sodium Phosphate 6 mg 08/02/21 09:00 08/07/21
[2021-08-08] VITALS (17 sets, daily range): BP systolic 98–131; BP diastolic 57–80; PULSE 64–86; RESP 20–28; TEMP 36.3–36.6; O2SAT 93–97
[2021-08-08 05:17] LABS: Basophils Percent Auto 0.1 % (0.2-1.2); Eosinophils Absolute Auto 0.1 K/mm3 (0-0.3); Eosinophils Percent Auto 1.6 % (0-4.4); Hematocrit 40.1 % (37.0-47.0); Hemoglobin 13.3 g/dL (12.0-15.0); Immature Granulocyte Absolute 0.21 K/mm3 (0.00-0.031); Immature Granulocyte Percent A 2.8 % (0-0.5); Lymphocytes Absolute Auto 0.79 K/mm3 (0.9-3.2); Lymphocytes Percent Auto 10.5 % (18.3-44.2); Mean Corpuscular HGB Conc 33.2 g/dl (32-36); Mean Corpuscular Hemoglobin 31.3 pg (26-34); Mean Corpuscular Volume 94.4 fl (80-100); Mean Platelet Volume 9.6 fl (7.4-10.4); Monocytes Absolute Auto 0.3 K/mm3 (0.1-0.6); Monocytes Percent Auto 3.6 % (2.6-8.5); Neutrophils Absolute Auto 6.1 K/mm3 (1.3-6.7); Neutrophils Percent Auto 81.4 % (45.5-73.1); Platelet Count Result 204 k/mm3 (150-375); Red Blood Count 4.25 M/mm3 (4.2-5.4); Red Cell Distribution Width 12.5 % (11.5-14.5); White Blood Count 7.5 K/mm3 (4.5-10.0)
[2021-08-08 05:31] LABS: Alanine Aminotransferase 109 U/L (4-35); Albumin Level 3.2 g/dL (3.5-5.1); Alkaline Phosphatase 173 U/L (38-126); Anion Gap 7 mmol/L (8-16); Aspartate Amino Transferase 42 U/L (14-36); Bilirubin,Total 0.8 mg/dL (0.2-1.3); Blood Urea Nitrogen 22 mg/dL (7-17); Calcium 8.5 mg/dL (8.4-10.2); Carbon Dioxide 25 mmol/L (22-30); Chloride 104 mmol/L (98-107); Estimated CRCL calculation 56 ml/min; Estimated Glomerular Filt Rate > 60; Glucose 105 mg/dL (65-110); Potassium 4.3 mmol/L (3.4-5.0); Sodium 136 mmol/L (137-145)
--- NOTE | 2021-08-08 08:19 | PCNWS ---
Weekly nutritional screen. Patient is tolerating current diet with adequate intake. No weight loss reported. No nutritional needs at this time.
[2021-08-08] MEDS: ENOXAPARIN 40 MG/0.4 ML SYRINGE SUB-Q (09:38)
--- NOTE | 2021-08-08 15:14 | PM.IMPN ---
Progress Note: A&P Assessment and Plan (1) Sepsis with acute hypoxic respiratory failure: Qualifiers: Sepsis type: sepsis due to unspecified organism Severe sepsis shock status: without septic shock Qualified Code(s): A41.9 - Sepsis, unspecified organism; R65.20 - Severe sepsis without septic shock; J96.01 - Acute respiratory failure with hypoxia Code(s): A41.9 - Sepsis, unspecified organism; R65.20 - Severe sepsis without septic shock; J96.01 - Acute respiratory failure with hypoxia Status: Acute Assessment and Plan: Patient with leukopenia and considerable bandemia (29%) on admission. She also had low-grade fever, tachypnea and respiratory failure. She was treated with Rocephin and azithromycin for 2 days but then stopped. Blood cultures negative. Chest x-ray more consistent with COVID. Repeat chest x-ray in the morning. Continue dexamethasone. Continue supportive care. (2) Pneumonia due to COVID-19 virus: Code(s): U07.1 - COVID-19; J12.82 - Pneumonia due to coronavirus disease 2019 Status: Acute Assessment and Plan: Patient presents with shortness of breath and cough. She tested positive for COVID on 08/01/2021. She was started on Decadron on admission. She refused the remdesivir and baricitinib. Continue supportive care. Encouraged her to lay prone as she tolerates. (3) Elevated LFTs: Code(s): R79.89 - Other specified abnormal findings of blood chemistry Status: Acute Assessment and Plan: AST 163 and ALT 116 on admission. Unclear this is acute or chronic but suspect related to COVID. levels improving. No abdominal pain suggest acute hepatitis. Will check hepatitis panel. Check a upper quadrant ultrasound. (4) DVT prophylaxis: Code(s): Z29.9 - Encounter for prophylactic measures, unspecified Status: Acute Assessment and Plan: Lovenox Subjective Date/time seen: 08/08/21 15:14 Interval history: 70yo healthy female here for cough and SOB and found to have COVID PNA. She is unvaccinated. Assuming care. Chart reviewed. For shortness of breath cough have improved. She denies any nausea, vomiting or abdominal pain. She denies chest pain. Exam Narrative: AF 97.3 113/71 70 28 96% 45L/min at 60% Gen - NARD lying semi recumbent in bed Chest -few basilar rhonchi. Normal respiratory rate. CV - RRR S1/S2. Telemetry showing 6 beat run of nonsustained V-tach and a brief episode of probable atrial tachycardia. Abd - Soft, NT/ND, Positive BS Ext - No pedal edema. 2+ DP pulses bilaterally Neuro - Alert and oriented. Nonfocal exam. Psych - Nml mood and affect Skin - Warm and dry Objective Data Vital Signs Vital Signs: Vital Signs - 24 hr 08/07/21 16:00 08/07/21 18:00 08/07/21 20:00 Temperature 97.3 F L 97.2 F L Pulse Rate 73 77 68 Respiratory Rate 20 22 H Blood Pressure 129/71 120/71 Pulse Oximetry 100 98 08/07/21 22:00 08/07/21 23:49 08/08/21 00:00 Temperature 99.1 F Pulse Rate 64 55 L 64 Respiratory Rate 22 H 22 H Blood Pressure 120/61 Pulse Oximetry 97 97 08/08/21 02:00 08/08/21 02:52 08/08/21 03:43 Temperature Pulse Rate 68 73 78 Respiratory Rate 22 H Blood Pressure Pulse Oximetry 96 96 08/08/21 04:00 08/08/21 06:00 08/08/21 08:00 Temperature 97.6 F 97.8 F Pulse Rate 71 74 71 Respiratory Rate 20 24 H Blood Pressure 131/63 113/71 Pulse Oximetry 95 97 08/08/21 12:00 08/08/21 14:59 Temperature 97.3 F L Pulse Rate 70 Respiratory Rate 28 H Blood Pressure 113/71 Pulse Oximetry 96 96 Intake/Output Intake/Output: Intake & Output 08/05/21 08/06/21 08/07/21 08/08/21 23:59 23:59 23:59 23:59 Intake Total 480 240 930 540 Output Total 1800 900 Balance 480 240 870 -360 Meds/Results Medications: Active Medications Generic Name Dose Route Start Last Admin Trade Name Freq PRN Reason Stop Dose Admin Acetaminophen 650 mg 08/01/21 17
[2021-08-09] VITALS (14 sets, daily range): BP systolic 103–123; BP diastolic 60–77; PULSE 56–98; RESP 20–22; TEMP 36.5–36.6; O2SAT 93–98
[2021-08-09 04:37] LABS: Basophils Percent Auto 0.3 % (0.2-1.2); Eosinophils Absolute Auto 0.2 K/mm3 (0-0.3); Hematocrit 41.2 % (37.0-47.0); Hemoglobin 13.9 g/dL (12.0-15.0); Immature Granulocyte Absolute 0.15 K/mm3 (0.00-0.031); Immature Granulocyte Percent A 1.9 % (0-0.5); Lymphocytes Absolute Auto 0.93 K/mm3 (0.9-3.2); Lymphocytes Percent Auto 11.9 % (18.3-44.2); Mean Corpuscular HGB Conc 33.7 g/dl (32-36); Mean Corpuscular Hemoglobin 31.2 pg (26-34); Mean Corpuscular Volume 92.6 fl (80-100); Mean Platelet Volume 9.4 fl (7.4-10.4); Monocytes Absolute Auto 0.3 K/mm3 (0.1-0.6); Monocytes Percent Auto 4.3 % (2.6-8.5); Neutrophils Absolute Auto 6.2 K/mm3 (1.3-6.7); Neutrophils Percent Auto 79.6 % (45.5-73.1); Platelet Count Result 210 k/mm3 (150-375); Red Blood Count 4.45 M/mm3 (4.2-5.4); Red Cell Distribution Width 12.4 % (11.5-14.5); White Blood Count 7.8 K/mm3 (4.5-10.0)
[2021-08-09 04:52] LABS: Alanine Aminotransferase 96 U/L (4-35); Albumin Level 3.2 g/dL (3.5-5.1); Alkaline Phosphatase 168 U/L (38-126); Anion Gap 4 mmol/L (8-16); Aspartate Amino Transferase 41 U/L (14-36); Bilirubin,Total 0.7 mg/dL (0.2-1.3); Blood Urea Nitrogen 21 mg/dL (7-17); Calcium 8.7 mg/dL (8.4-10.2); Carbon Dioxide 28 mmol/L (22-30); Chloride 103 mmol/L (98-107); Estimated CRCL calculation 56 ml/min; Estimated Glomerular Filt Rate > 60; Glucose 103 mg/dL (65-110); Potassium 4.4 mmol/L (3.4-5.0); Sodium 135 mmol/L (137-145)
[2021-08-09 07:00] LABS: Hepatitis C Virus Antibody Negative (Negative)
[2021-08-09] MEDS: ENOXAPARIN 40 MG/0.4 ML SYRINGE SUB-Q (08:51)
--- NOTE | 2021-08-09 12:25 | PM.IMPN ---
Progress Note: A&P Assessment and Plan (1) Sepsis with acute hypoxic respiratory failure: Qualifiers: Sepsis type: sepsis due to unspecified organism Severe sepsis shock status: without septic shock Qualified Code(s): A41.9 - Sepsis, unspecified organism; R65.20 - Severe sepsis without septic shock; J96.01 - Acute respiratory failure with hypoxia Code(s): A41.9 - Sepsis, unspecified organism; R65.20 - Severe sepsis without septic shock; J96.01 - Acute respiratory failure with hypoxia Status: Acute Assessment and Plan: Patient with leukopenia and considerable bandemia (29%) on admission. She also had low-grade fever, tachypnea and respiratory failure. She was treated with Rocephin and azithromycin for 2 days but then stopped. Blood cultures negative. Chest x-ray more consistent with COVID. Repeat CXR reviewed from this morning showing diffuse disease. Continue dexamethasone. Continue supportive care. Encouraged her to be up to the chair if possible (2) Pneumonia due to COVID-19 virus: Code(s): U07.1 - COVID-19; J12.82 - Pneumonia due to coronavirus disease 2019 Status: Acute Assessment and Plan: Patient presents with shortness of breath and cough. She tested positive for COVID on 08/01/2021. She was started on Decadron on admission. She refused the remdesivir and baricitinib. Continue supportive care. Encouraged her to lay prone as she tolerates. (3) Elevated LFTs: Code(s): R79.89 - Other specified abnormal findings of blood chemistry Status: Acute Assessment and Plan: AST 163 and ALT 116 on admission. Unclear this is acute or chronic but suspect related to COVID. Levels improving. No abdominal pain to suggest acute hepatitis. Hepatitis panel pending. RUQ ultrasound normal. Suspect elevated LFTs related to COVID. (4) DVT prophylaxis: Code(s): Z29.9 - Encounter for prophylactic measures, unspecified Status: Acute Assessment and Plan: Lovenox Subjective Date/time seen: 08/09/21 12:25 Interval history: 70yo healthy female here for cough and SOB and found to have COVID PNA. She is unvaccinated. SOB better. She is up to the bedside commode. +BMs. No CP or palpitations. Exam Narrative: AF 97.7 107/61 95 21 97% 50L/min at 40% Gen - NARD lying semi recumbent in bed Chest - L>R bibasilar rhonchi, nml RR CV - RRR S1/S2. Telemetry showing no signifincat dysrhythmias Abd - Soft, NT/ND, Positive BS - Angelo secured draining clear yellow urine Ext - No pedal edema Psych - Nml mood and affect Skin - Warm and dry Objective Data Vital Signs Vital Signs: Vital Signs - 24 hr 08/08/21 14:00 08/08/21 14:59 08/08/21 16:00 Temperature 97.5 F L Pulse Rate 73 74 Respiratory Rate 24 H Blood Pressure 98/80 L Pulse Oximetry 96 93 08/08/21 18:00 08/08/21 20:00 08/08/21 21:54 Temperature 97.9 F Pulse Rate 82 75 68 Respiratory Rate 20 Blood Pressure 115/59 L Pulse Oximetry 95 08/08/21 22:45 08/08/21 23:25 08/09/21 00:00 Temperature 97.8 F Pulse Rate 67 67 Respiratory Rate 20 20 Blood Pressure 102/57 L Pulse Oximetry 94 93 93 08/09/21 02:00 08/09/21 04:00 08/09/21 05:17 Temperature 97.8 F Pulse Rate 64 61 64 Respiratory Rate 20 Blood Pressure 121/77 Pulse Oximetry 96 08/09/21 08:00 08/09/21 09:09 08/09/21 10:00 Temperature 97.9 F Pulse Rate 98 64 Respiratory Rate 22 H Blood Pressure 103/60 Pulse Oximetry 98 98 08/09/21 12:00 Temperature 97.7 F Pulse Rate 95 Respiratory Rate 21 H Blood Pressure 107/61 Pulse Oximetry 97 Intake/Output Intake/Output: Intake & Output 08/06/21 08/07/21 08/08/21 08/09/21 23:59 23:59 23:59 23:59 Intake Total 739 261 2255 420 Output Total 1800 1700 1200 Balance 240 -870 70 -780 Meds/Results Medications: Active Medications Generic Name Dose Route Start Last Admin Trade Name Freq PRN Reason Stop Dose
[2021-08-09 14:26] LABS: HAV RESULT Negative (Negative); Hepatitis B Core IgM Result Negative (Negative)
[2021-08-09 22:48] LABS: Hepatitis B Surface Antigen Negative (Negative)
[2021-08-10] VITALS (14 sets, daily range): BP systolic 110–118; BP diastolic 57–72; PULSE 54–78; RESP 22–24; TEMP 36.2–37; O2SAT 96–99
[2021-08-10 06:58] LABS: Basophils Percent Auto 0.3 % (0.2-1.2); Eosinophils Absolute Auto 0.2 K/mm3 (0-0.3); Eosinophils Percent Auto 2.4 % (0-4.4); Hematocrit 41.4 % (37.0-47.0); Hemoglobin 13.9 g/dL (12.0-15.0); Immature Granulocyte Absolute 0.13 K/mm3 (0.00-0.031); Immature Granulocyte Percent A 1.7 % (0-0.5); Lymphocytes Absolute Auto 1.11 K/mm3 (0.9-3.2); Lymphocytes Percent Auto 14.2 % (18.3-44.2); Mean Corpuscular HGB Conc 33.6 g/dl (32-36); Mean Corpuscular Hemoglobin 31.7 pg (26-34); Mean Corpuscular Volume 94.3 fl (80-100); Mean Platelet Volume 9.9 fl (7.4-10.4); Monocytes Absolute Auto 0.5 K/mm3 (0.1-0.6); Neutrophils Absolute Auto 5.9 K/mm3 (1.3-6.7); Neutrophils Percent Auto 75.4 % (45.5-73.1); Platelet Count Result 218 k/mm3 (150-375); Red Blood Count 4.39 M/mm3 (4.2-5.4); Red Cell Distribution Width 12.6 % (11.5-14.5); White Blood Count 7.8 K/mm3 (4.5-10.0)
[2021-08-10] MEDS: ENOXAPARIN 40 MG/0.4 ML SYRINGE SUB-Q (09:30)
[2021-08-10 12:01] LABS: Alanine Aminotransferase 72 U/L (4-35); Albumin Level 3.2 g/dL (3.5-5.1); Alkaline Phosphatase 159 U/L (38-126); Anion Gap 7 mmol/L (8-16); Aspartate Amino Transferase 34 U/L (14-36); Bilirubin,Total 0.7 mg/dL (0.2-1.3); Blood Urea Nitrogen 20 mg/dL (7-17); CRP 1.9 mg/dL (<1.0); Calcium 8.7 mg/dL (8.4-10.2); Carbon Dioxide 24 mmol/L (22-30); Chloride 103 mmol/L (98-107); Estimated CRCL calculation 50 ml/min; Estimated Glomerular Filt Rate > 60; Glucose 205 mg/dL (65-110); Lactate Dehydrogenase 634 U/L (313-618); Phosphorus 3.3 mg/dL (2.5-4.5); Potassium 4.3 mmol/L (3.4-5.0); Sodium 134 mmol/L (137-145)
--- NOTE | 2021-08-10 15:25 | PM.IMPN ---
Progress Note: A&P Assessment and Plan (1) Sepsis with acute hypoxic respiratory failure: Qualifiers: Sepsis type: sepsis due to unspecified organism Severe sepsis shock status: without septic shock Qualified Code(s): A41.9 - Sepsis, unspecified organism; R65.20 - Severe sepsis without septic shock; J96.01 - Acute respiratory failure with hypoxia Code(s): A41.9 - Sepsis, unspecified organism; R65.20 - Severe sepsis without septic shock; J96.01 - Acute respiratory failure with hypoxia Status: Acute Assessment and Plan: Patient with leukopenia and considerable bandemia (29%) on admission. She also had low-grade fever, tachypnea and respiratory failure. She was treated with Rocephin and azithromycin for 2 days but then stopped. Blood cultures negative. Chest x-ray more consistent with COVID. Repeat CXR reviewed from this morning showing diffuse disease. Continue dexamethasone. Continue supportive care. Encouraged her to be up to the chair if possible (2) Pneumonia due to COVID-19 virus: Code(s): U07.1 - COVID-19; J12.82 - Pneumonia due to coronavirus disease 2019 Status: Acute Assessment and Plan: Patient presents with shortness of breath and cough. She tested positive for COVID on 08/01/2021. She was started on Decadron on admission. She refused the remdesivir and baricitinib. Continue supportive care. Encouraged her to lay prone as she tolerates. (3) Elevated LFTs: Code(s): R79.89 - Other specified abnormal findings of blood chemistry Status: Acute Assessment and Plan: AST 163 and ALT 116 on admission. Unclear this is acute or chronic but suspect related to COVID. Levels improving. No abdominal pain to suggest acute hepatitis. Hepatitis panel pending. RUQ ultrasound normal. Suspect elevated LFTs related to COVID. (4) DVT prophylaxis: Code(s): Z29.9 - Encounter for prophylactic measures, unspecified Status: Acute Assessment and Plan: Lovenox Subjective Date/time seen: 08/10/21 15:25 Interval history: 70yo healthy female here for cough and SOB and found to have COVID PNA. She is unvaccinated. SOB better. She is up to the bedside commode. +BMs. No CP or palpitations. 08/10/2021 doing okay no overnight event remains on high-flow oxygen with Airvo. no chest pain Review of Systems Review of Systems: All systems reviewed & are unremarkable except as noted in HPI and below Exam Narrative: Gen - NARD lying semi recumbent in bed Chest - L>R bibasilar rhonchi, nml RR CV - RRR S1/S2. Telemetry showing no signifincat dysrhythmias Abd - Soft, NT/ND, Positive BS - Angelo secured draining clear yellow urine Ext - No pedal edema Psych - Nml mood and affect Skin - Warm and dry Objective Data Vital Signs Vital Signs: Vital Signs - 24 hr 08/09/21 16:00 08/09/21 18:00 08/09/21 20:00 Temperature 97.7 F 97.8 F Pulse Rate 95 71 71 Respiratory Rate 21 H 20 Blood Pressure 107/61 123/68 Pulse Oximetry 97 96 08/09/21 22:00 08/09/21 23:44 08/10/21 00:00 Temperature 97.7 F Pulse Rate 70 73 64 Respiratory Rate 20 Blood Pressure 123/72 Pulse Oximetry 96 96 08/10/21 02:00 08/10/21 04:00 08/10/21 06:00 Temperature 97.2 F L Pulse Rate 54 L 74 76 Respiratory Rate 22 H Blood Pressure 117/62 Pulse Oximetry 96 08/10/21 08:00 08/10/21 12:00 Temperature 97.1 F L 98.6 F Pulse Rate 69 78 Respiratory Rate 22 H 24 H Blood Pressure 110/57 L 116/72 Pulse Oximetry 97 97 Intake/Output Intake/Output: Intake & Output 08/07/21 08/08/21 08/09/21 08/10/21 23:59 23:59 23:59 23:59 Intake Total 930 1770 1100 Output Total 1800 1700 1999 1175 [facility] -[phone] Meds/Results Medications: Active Medications Generic Name Dose Route Start Last Admin Trade Name Sinai PRN Reason Stop Dose Admin Acetaminophen 650 mg 08/01/21 17:16 08/02/21 00:01 Acetaminophen 325 Mg Tablet PO
[2021-08-11] VITALS (15 sets, daily range): BP systolic 108–128; BP diastolic 61–67; PULSE 54–85; RESP 18–22; TEMP 35.9–36.9; O2SAT 96–100
[2021-08-11 04:56] LABS: Basophils Absolute Auto 0.1 K/mm3 (0.0-0.1); Basophils Percent Auto 0.7 % (0.2-1.2); Eosinophils Absolute Auto 0.1 K/mm3 (0-0.3); Eosinophils Percent Auto 1.4 % (0-4.4); Hematocrit 46.1 % (37.0-47.0); Hemoglobin 14.6 g/dL (12.0-15.0); Immature Granulocyte Absolute 0.09 K/mm3 (0.00-0.031); Immature Granulocyte Percent A 1.3 % (0-0.5); Lymphocytes Percent Auto 14.4 % (18.3-44.2); Mean Corpuscular HGB Conc 31.7 g/dl (32-36); Mean Corpuscular Hemoglobin 31.7 pg (26-34); Mean Corpuscular Volume 100.2 fl (80-100); Mean Platelet Volume 9.7 fl (7.4-10.4); Monocytes Absolute Auto 0.4 K/mm3 (0.1-0.6); Monocytes Percent Auto 5.6 % (2.6-8.5); Neutrophils Absolute Auto 5.3 K/mm3 (1.3-6.7); Neutrophils Percent Auto 76.6 % (45.5-73.1); Platelet Count Result 179 k/mm3 (150-375); Red Cell Distribution Width 12.3 % (11.5-14.5)
[2021-08-11] MEDS: ENOXAPARIN 40 MG/0.4 ML SYRINGE SUB-Q (09:19)
--- NOTE | 2021-08-11 13:17 | PM.IMPN ---
Progress Note: A&P Assessment and Plan (1) Sepsis with acute hypoxic respiratory failure: Qualifiers: Sepsis type: sepsis due to unspecified organism Severe sepsis shock status: without septic shock Qualified Code(s): A41.9 - Sepsis, unspecified organism; R65.20 - Severe sepsis without septic shock; J96.01 - Acute respiratory failure with hypoxia Code(s): A41.9 - Sepsis, unspecified organism; R65.20 - Severe sepsis without septic shock; J96.01 - Acute respiratory failure with hypoxia Status: Acute Assessment and Plan: Patient with leukopenia and considerable bandemia (29%) on admission. She also had low-grade fever, tachypnea and respiratory failure. She was treated with Rocephin and azithromycin for 2 days but then stopped. Blood cultures negative. Chest x-ray more consistent with COVID. Repeat CXR reviewed from this morning showing diffuse disease. Continue dexamethasone. Continue supportive care. Encouraged her to be up to the chair if possible (2) Pneumonia due to COVID-19 virus: Code(s): U07.1 - COVID-19; J12.82 - Pneumonia due to coronavirus disease 2019 Status: Acute Assessment and Plan: Patient presents with shortness of breath and cough. She tested positive for COVID on 08/01/2021. She was started on Decadron on admission. She refused the remdesivir and baricitinib. Continue supportive care. Encouraged her to lay prone as she tolerates. (3) Elevated LFTs: Code(s): R79.89 - Other specified abnormal findings of blood chemistry Status: Acute Assessment and Plan: AST 163 and ALT 116 on admission. Unclear this is acute or chronic but suspect related to COVID. Levels improving. No abdominal pain to suggest acute hepatitis. Hepatitis panel pending. RUQ ultrasound normal. Suspect elevated LFTs related to COVID. (4) DVT prophylaxis: Code(s): Z29.9 - Encounter for prophylactic measures, unspecified Status: Acute Assessment and Plan: Lovenox Additional Plan # COVID-19 pneumonia # acute hypoxic respiratory failure -COVID-19 positive 08/02/21, unvaccinated -keep oxygen saturation greater than 90%, on Airvo 55L 80% -treatment plan: Decadron 10 day course of 6 mg, patient refused remdesivir and baricitinib -chest x-ray shows patchy basilar infiltrates pneumonia versus atelectasis -she still full code, did not want intubation but also does not want to so she is listed as full code -p.r.n. Tylenol -labs have been stable # transaminitis -transaminitis has been stable and elevated -has not received any baricitinib or remdesivir # mild hyponatremia -sodium 134, appears stable Diet: Regular DVT prophylaxis: Lovenox Code status: Full code Disposition: IMU for airvo, pending O2 requirements Social: son is POA 08/11/2021 Patient is still requiring high-flow oxygen. Plan is to continue current treatment monitor oxygen. Patient has refused to take remdesivir. Subjective Date/time seen: 08/11/21 13:17 Patient was seen during the morning rounds today. Mild shortness of breath, no chest pain. Still requiring high-flow oxygen. No abdominal pain, nausea, no vomiting. Mood stable Interval history: 70yo healthy female here for cough and SOB and found to have COVID PNA. She is unvaccinated. Review of Systems Review of Systems: All systems reviewed & are unremarkable except as noted in HPI and below Exam Narrative: Gen - NARD lying semi recumbent in bed Chest - L>R bibasilar rhonchi, nml RR CV - RRR S1/S2. Telemetry showing no signifincat dysrhythmias Abd - Soft, NT/ND, Positive BS - Angelo secured draining clear yellow urine Ext - No pedal edema Psych - Nml mood and affect Skin - Warm and dry Objective Data Vital Signs Vital Signs: Vital Signs - 24 hr 08/10/21 14:00 08/10/21 16:00 08/10/21 18:00 Temperature 36.2 C L Pulse Rate 75 73 59 L Respiratory Rate 24 H Blood Pressure 118/68 Pulse Oxim
[2021-08-12] VITALS (21 sets, daily range): BP systolic 95–131; BP diastolic 49–77; PULSE 49–102; RESP 18–22; TEMP 36.4–37; O2SAT 20–98
[2021-08-12] MEDS: ENOXAPARIN 40 MG/0.4 ML SYRINGE SUB-Q (07:42)
--- NOTE | 2021-08-12 16:16 | PM.IMPN ---
Progress Note: A&P Assessment and Plan (1) Sepsis with acute hypoxic respiratory failure: Qualifiers: Sepsis type: sepsis due to unspecified organism Severe sepsis shock status: without septic shock Qualified Code(s): A41.9 - Sepsis, unspecified organism; R65.20 - Severe sepsis without septic shock; J96.01 - Acute respiratory failure with hypoxia Code(s): A41.9 - Sepsis, unspecified organism; R65.20 - Severe sepsis without septic shock; J96.01 - Acute respiratory failure with hypoxia Status: Acute Assessment and Plan: Patient with leukopenia and considerable bandemia (29%) on admission. She also had low-grade fever, tachypnea and respiratory failure. She was treated with Rocephin and azithromycin for 2 days but then stopped. Blood cultures negative. Chest x-ray more consistent with COVID. Repeat CXR 08/09 showing diffuse disease. She completed dexamethasone. Continue supportive care. Encouraged her to be up to the chair if possible. Wean O2 as tolerated. (2) Pneumonia due to COVID-19 virus: Code(s): U07.1 - COVID-19; J12.82 - Pneumonia due to coronavirus disease 2019 Status: Acute Assessment and Plan: Patient presents with shortness of breath and cough. She tested positive for COVID on 08/01/2021. She was started on Decadron on admission. She refused the remdesivir and baricitinib. Continue supportive care. Encouraged her to lay prone as she tolerates. (3) Elevated LFTs: Code(s): R79.89 - Other specified abnormal findings of blood chemistry Status: Acute Assessment and Plan: AST 163 and ALT 116 on admission. Unclear this is acute or chronic but suspect related to COVID. Levels improving. No abdominal pain to suggest acute hepatitis. Hepatitis panel pending. RUQ ultrasound normal. Suspect elevated LFTs related to COVID. (4) DVT prophylaxis: Code(s): Z29.9 - Encounter for prophylactic measures, unspecified Status: Acute Assessment and Plan: Lovenox Subjective Date/time seen: 08/12/21 16:16 Interval history: 70yo healthy female here for cough and SOB and found to have COVID PNA. She is unvaccinated. Resuming care. Chart reviewed. No complaints. Feels well. Minimal SOB. She has not been getting up much and states no one told her she could get up (states up with assistance on the white board). No cough. Exam Narrative: AF 97.6 95/77 85 22 95% 6L (4L when provider in the room) Gen - NARD Chest - L>R bibasilar rhonchi, nml RR CV - RRR S1/S2; Tele showing no significant dysrhythmias. Abd - Soft, NT/ND, Positive BS Ext - No pedal edema Psych - Nml mood and affect Skin - Warm and dry Objective Data Vital Signs Vital Signs: Vital Signs - 24 hr 08/11/21 20:00 08/11/21 22:00 08/11/21 23:12 Temperature 98.0 F Pulse Rate 64 69 69 Respiratory Rate 20 20 Blood Pressure 115/64 Pulse Oximetry 97 97 08/12/21 00:00 08/12/21 02:00 08/12/21 03:34 Temperature 97.7 F Pulse Rate 49 L 73 73 Respiratory Rate 20 20 Blood Pressure 110/65 Pulse Oximetry 98 98 08/12/21 04:00 08/12/21 06:00 08/12/21 07:49 Temperature 98.0 F Pulse Rate 79 62 79 Respiratory Rate 22 H 18 Blood Pressure 110/55 L Pulse Oximetry 91 98 08/12/21 08:00 08/12/21 10:00 08/12/21 12:00 Temperature 98.6 F 97.6 F Pulse Rate 81 77 75 Respiratory Rate 22 H 22 H Blood Pressure 100/53 L 95/77 L Pulse Oximetry 93 96 08/12/21 14:00 08/12/21 15:27 08/12/21 16:00 Temperature Pulse Rate 69 68 85 Respiratory Rate Blood Pressure Pulse Oximetry 95 Intake/Output Intake/Output: Intake & Output 08/09/21 08/10/21 08/11/21 08/12/21 23:59 23:59 23:59 23:59 Intake Total 7428 070 4425 570 Output Total 1999 4082 4506 900 Lqmkffs -900 -2135 -620 -330 Meds/Results Medications: Active Medications Generic Name Dose Route Start Last Admin Trade Name Freq PRN Reason Stop Dose Admin Acetaminophen 650
--- NOTE | 2021-08-12 17:17 | HOMEO2EVAL ---
Evaluation was performed at [facility] Home Oxygen Evaluation RC: Home Oxygen (O2) Evaluation Start: 08/12/21 10:58 Freq: ONCE Status: Active Protocol: RPE Activity Type Activity Date Activity User E-Sign Co-Sign Detail Recorded Client Recorded Date Recorded By Document 08/12/21 16:30 [email or web address] [email or web address] 08/12/21 17:17 KRM Document 08/12/21 16:32 [email or web address] 08/12/21 17:17 KRM Document 08/12/21 16:34 [email or web address] 08/12/21 17:17 KRM Document 08/12/21 16:36 [email or web address] 08/12/21 17:17 KRM Document 08/12/21 16:38 [email or web address] [email or web address] 08/12/21 17:17 KRM Document 08/12/21 16:39 [email or web address] [email or web address] 08/12/21 17:17 KRM Document 08/12/21 16:42 [email or web address] 08/12/21 17:17 KRM 08/12/21 08/12/21 08/12/21 16:30 16:32 16:34 Home O2 Evaluation Test Phase Resting Resting Resting Oxygen Delivery Room Air Nasal Cannula Nasal Cannula Oxygen Flow Rate (L/min) 1 2 Pulse Oximetry (90-100 %) 87 L 89 L 90 Pulse Rate (60-100 beats/min) 85 89 95 Activity Tolerance Ambulation Distance (feet) Ambulation Distance (meters) Home Oxygen Evaluation Comments Treatment Charges O2 Evaluation - Inpatient 08/12/21 08/12/21 08/12/21 16:36 16:38 16:39 Home O2 Evaluation Test Phase Exercise Exercise Exercise Oxygen Delivery Nasal Cannula Nasal Cannula Nasal Cannula Oxygen Flow Rate (L/min) 2 3 4 Pulse Oximetry (90-100 %) 86 L 86 L 87 L Pulse Rate (60-100 beats/min) 101 H 100 89 Activity Tolerance Fair Fair Fair Ambulation Distance (feet) Ambulation Distance (meters) Home Oxygen Evaluation Comments Treatment Charges 08/12/21 16:42 Home O2 Evaluation Test Phase Exercise Oxygen Delivery Nasal Cannula Oxygen Flow Rate (L/min) 5 Pulse Oximetry (90-100 %) 89 L Pulse Rate (60-100 beats/min) 90 Activity Tolerance Fair Ambulation Distance (feet) 15 Ambulation Distance (meters) 4.57 Home Oxygen Evaluation Comments 2LPM AT REST, 5LPM WITH ACTIVITY. Treatment Charges
--- NOTE | 2021-08-12 17:17 | PCRTNOTE ---
HOME O2 EVALUATION COMPLETED. PT. REQUIRES 2LPM AT REST AND 5LPM WITH ACTIVITY. SET PT. UP WITH [facility] [phone]. TANK TO BE DELIVERED [facility].
[2021-08-13] VITALS (15 sets, daily range): BP systolic 103–121; BP diastolic 55–62; PULSE 64–96; RESP 20–24; TEMP 36.2–36.6; O2SAT 93–100
[2021-08-13 09:23] LABS: Alveolar/Arterial O2 Gradient 463.7 mmHg; Base Excess ABG -2.2 mEq/l (+/-2.0); Device HIGH FLOW THERAPY; Fractional Inspired Oxygen 85 %; HCO3 ABG 20.7 mEq/l (22.0-26.0); Modified Allen's Test Pass; Oxygen Content ABG 20.1 %vol (16.0-22.0); Oxygen Saturation ABG 98.3 % (95.0-100.0); Oxyhemoglobin 97.2 % THb (90.0-100.0); PCO2 ABG 30.7 mmHg (35.0-45.0); PO2 ABG 110.5 mmHg (80.0-100.0); Site Drawn RIGHT RADIAL; Total Hemoglobin 14.6 g/dL (12.0-18.0); pH ABG 7.447 (7.350-7.450)
--- NOTE | 2021-08-13 10:20 | PM.IMPN ---
Progress Note: A&P Assessment and Plan (1) Sepsis with acute hypoxic respiratory failure: Qualifiers: Sepsis type: sepsis due to unspecified organism Severe sepsis shock status: without septic shock Qualified Code(s): A41.9 - Sepsis, unspecified organism; R65.20 - Severe sepsis without septic shock; J96.01 - Acute respiratory failure with hypoxia Code(s): A41.9 - Sepsis, unspecified organism; R65.20 - Severe sepsis without septic shock; J96.01 - Acute respiratory failure with hypoxia Status: Acute Assessment and Plan: Patient with leukopenia and considerable bandemia (29%) on admission. She also had low-grade fever, tachypnea and respiratory failure. She was treated with Rocephin and azithromycin for 2 days but then stopped. Blood cultures negative. Chest x-ray more consistent with COVID. More hypoxic with exertion. Suspect patient has been very inactive here. She completed dexamethasone. CXR today showing no change. ABG 7.45/31/110 on Airvo 60L at 85%. Wean o2 as tolerated. Continue to have patietn up to the chair, lie prone as able. Repeat labs. She has completed dexamethasone but consider repeating. Consider PE. (2) Pneumonia due to COVID-19 virus: Code(s): U07.1 - COVID-19; J12.82 - Pneumonia due to coronavirus disease 2019 Status: Acute Assessment and Plan: Patient presents with shortness of breath and cough. She tested positive for COVID on 08/01/2021. She was started on Decadron on admission. She refused the remdesivir and baricitinib. As above. Continue supportive care. Encouraged her to lay prone as she tolerates. Repeat labs and consider resuming Decadron. (3) Elevated LFTs: Code(s): R79.89 - Other specified abnormal findings of blood chemistry Status: Acute Assessment and Plan: AST 163 and ALT 116 on admission. Unclear this is acute or chronic but suspect related to COVID. Levels improving. No abdominal pain to suggest acute hepatitis. Hepatitis panel pending. RUQ ultrasound normal. Suspect elevated LFTs related to COVID. Will repeat today. (4) DVT prophylaxis: Code(s): Z29.9 - Encounter for prophylactic measures, unspecified Status: Acute Assessment and Plan: Lovenox Subjective Date/time seen: 08/13/21 10:20 Interval history: 70yo healthy female here for cough and SOB and found to have COVID PNA. She is unvaccinated. Patient had home O2 evaluation yesterday showing 2 L at rest and 5 L with activity however overnight she had an episode where she developed hypoxia but was able to recover. This morning getting up to the bedside commode with 4 L, patient had difficulty recovering. She has put on high-flow nasal cannula but ultimately had to use Airvo. She has a minimal cough. No pleuritic chest pain. No chest pressure. She does feel short of breath with exertion Exam Narrative: AF 97.1 111/57 64 20 96% Airvo Gen - NARD lying semi-recumbent in bed Chest -few bibasilar inspiratory crackles otherwise distant clear breath sounds. CV - RRR S1/S2; Tele showing no significant dysrhythmias. Abd - Soft, NT/ND, Positive BS Ext - No pedal edema Psych - Nml mood and affect Skin - Warm and dry Objective Data Vital Signs Vital Signs: Vital Signs - 24 hr 08/12/21 12:00 08/12/21 14:00 08/12/21 15:27 Temperature 97.6 F Pulse Rate 75 69 68 Respiratory Rate 22 H Blood Pressure 95/77 L Pulse Oximetry 96 95 08/12/21 16:00 08/12/21 16:30 08/12/21 16:32 Temperature 98.3 F Pulse Rate 87 85 89 Respiratory Rate 20 Blood Pressure 131/61 Pulse Oximetry 20 L 87 L 89 L 08/12/21 16:34 08/12/21 16:36 08/12/21 16:38 Temperature Pulse Rate 95 101 H 100 Respiratory Rate Blood Pressure Pulse Oximetry 90 86 L 86 L 08/12/21 16:39 08/12/21 16:42 08/12/21 20:00 Temperature 97.8 F Pulse Rate 89 90 78 Respiratory Rate 22 H Blood Pressure 105/49 L Pulse Oximetry 87 L 89 L 92 01
[2021-08-13] MEDS: ENOXAPARIN 40 MG/0.4 ML SYRINGE SUB-Q (10:36)
[2021-08-13 12:05] LABS: Basophils Percent Auto 0.3 % (0.2-1.2); Eosinophils Absolute Auto 0.1 K/mm3 (0-0.3); Eosinophils Percent Auto 1.2 % (0-4.4); Hematocrit 40.3 % (37.0-47.0); Hemoglobin 13.4 g/dL (12.0-15.0); Immature Granulocyte Percent A 1.1 % (0-0.5); Lymphocytes Absolute Auto 0.83 K/mm3 (0.9-3.2); Lymphocytes Percent Auto 8.8 % (18.3-44.2); Mean Corpuscular HGB Conc 33.3 g/dl (32-36); Mean Corpuscular Hemoglobin 31.5 pg (26-34); Mean Corpuscular Volume 94.6 fl (80-100); Mean Platelet Volume 9.8 fl (7.4-10.4); Monocytes Absolute Auto 0.5 K/mm3 (0.1-0.6); Neutrophils Absolute Auto 7.9 K/mm3 (1.3-6.7); Neutrophils Percent Auto 83.6 % (45.5-73.1); Platelet Count Result 162 k/mm3 (150-375); Red Blood Count 4.26 M/mm3 (4.2-5.4); Red Cell Distribution Width 12.9 % (11.5-14.5); White Blood Count 9.4 K/mm3 (4.5-10.0)
[2021-08-13 12:18] LABS: Alanine Aminotransferase 50 U/L (4-35); Albumin Level 3.2 g/dL (3.5-5.1); Alkaline Phosphatase 139 U/L (38-126); Anion Gap 7 mmol/L (8-16); Aspartate Amino Transferase 25 U/L (14-36); Bilirubin,Total 0.4 mg/dL (0.2-1.3); Blood Urea Nitrogen 17 mg/dL (7-17); CRP 2.1 mg/dL (<1.0); Calcium 8.5 mg/dL (8.4-10.2); Carbon Dioxide 25 mmol/L (22-30); Chloride 101 mmol/L (98-107); Estimated CRCL calculation 63 ml/min; Estimated Glomerular Filt Rate > 60; Glucose 187 mg/dL (65-110); Lactate Dehydrogenase 517 U/L (313-618); Potassium 3.9 mmol/L (3.4-5.0); Sodium 133 mmol/L (137-145)
[2021-08-13 12:32] LABS: D Dimer 7.79 ug/mL (<0.48)
--- NOTE | 2021-08-13 15:39 | PCRCNOTE ---
HOME O2 EVALUATION COMPLETED ON 08/12/21. PT. REQUIRES 2LPM AT REST AND 5LPM WITH ACTIVITY. PT. SET UP WITH [email or web address]. TANK IN THE ROOM.
[2021-08-13] MEDS: ENOXAPARIN 80 MG/0.8 ML SYRINGE 70 MG SUB-Q (20:38)
[2021-08-14] VITALS (10 sets, daily range): BP systolic 98–113; BP diastolic 56–72; PULSE 72–98; RESP 18–22; TEMP 36–36.8; O2SAT 93–100
--- NOTE | 2021-08-14 08:36 | PM.IMPN ---
Progress Note: A&P Assessment and Plan (1) Pulmonary embolism: Code(s): I26.99 - Other pulmonary embolism without acute cor pulmonale Status: Acute Assessment and Plan: Patient developed worsening acute respiratory failure the other day. CTA chest performed due to elevated DDimer above the other inflammatory markers. CTA chest showing acute pulmonary emboli in the right upper lobe. There are groundglass opacities throughout all lung zones, worst in the mid and lower lung zones. Suspect multifactorial from deconditioning, persistent COVID PNA and now PE. Lovenox dose increased. Will resume Decadron given the severity of the COVID findings. May need pulmonary rehab. Care coordination to see if she can afford Eliquis (2) Sepsis with acute hypoxic respiratory failure: Qualifiers: Sepsis type: sepsis due to unspecified organism Severe sepsis shock status: without septic shock Qualified Code(s): A41.9 - Sepsis, unspecified organism; R65.20 - Severe sepsis without septic shock; J96.01 - Acute respiratory failure with hypoxia Code(s): A41.9 - Sepsis, unspecified organism; R65.20 - Severe sepsis without septic shock; J96.01 - Acute respiratory failure with hypoxia Status: Acute Assessment and Plan: Patient with leukopenia and considerable bandemia (29%) on admission. She also had low-grade fever, tachypnea and respiratory failure. She was treated with Rocephin and azithromycin for 2 days but then stopped. Blood cultures negative. Chest x-ray more consistent with COVID. More hypoxic with exertion. Suspect patient has been very inactive here. She completed dexamethasone. CXR 08/13 showing no change. ABG 7.45/31/110 on Airvo 60L at 85% but able to be weaned to 3L now. CTA chest showing RUL PE. Suspect patient's severe hypoxia flare related to deconditioning, persistent COVID findings and PE. Encouraged patient to be up to the chair and walk to the BR. She may be reluctant since it causes significant PINEDA. Will order PT to help assist with walking. Need to make sure she is a safe discharge. Home o2 evaluation later today or tomorrow. May need HH. (3) Pneumonia due to COVID-19 virus: Code(s): U07.1 - COVID-19; J12.82 - Pneumonia due to coronavirus disease 2019 Status: Acute Assessment and Plan: Patient presents with shortness of breath and cough. She tested positive for COVID on 08/01/2021. She was started on Decadron on admission and has completed a course. She refused the remdesivir and baricitinib. As above. Continue supportive care. (4) Elevated LFTs: Code(s): R79.89 - Other specified abnormal findings of blood chemistry Status: Acute Assessment and Plan: AST 163 and ALT 116 on admission. Cornelia to be acute related to COVID. No abdominal pain to suggest acute hepatitis. Hepatitis panel negative. RUQ ultrasound normal. Levels improving. (5) DVT prophylaxis: Code(s): Z29.9 - Encounter for prophylactic measures, unspecified Status: Acute Assessment and Plan: As above Subjective Date/time seen: 08/14/21 08:36 Interval history: 70yo healthy female here for cough and SOB and found to have COVID PNA. She is unvaccinated. Yesterday, patient had difficulty recovering after being up to the bedside commode to the point of requiring Airvo. She did improve and able to wean back down to nasal cannula. Her inflammatory markers were improved or stable except elevated DDimer. CTA chest ordered and she was found to have PE. Lovenox dose increased. She was receiving prophylaxis dosing and she was compliant with treatment. She feels better today. Minimal cough and SOB at rest but has not been moving around much still. No pleuritic CP. No n/v Exam Narrative: AF 98.0 111/61 78 18 100% 3L Gen - NARD lying semi-recumbent in bed Chest - dry bibasilar inspiratory crackles otherwise distant clear breath sounds. CV - RRR S1/S2; Tele showing no signi
[2021-08-14] MEDS: ENOXAPARIN 80 MG/0.8 ML SYRINGE 70 MG SUB-Q ×2 (09:24→21:11)
--- NOTE | 2021-08-14 10:24 | PCNWS ---
Weekly nutritional screen. Patient is tolerating current diet with adequate intake. No weight loss reported. Recommend reweighing pt prior to discharge. No nutritional needs at this time.
--- NOTE | 2021-08-14 10:42 | PCRCNOTE ---
HOME O2 EVAL ATTEMPTED, PT'S SAO2 DROPPED TO 84% ON 6L O2 AFTER ACTIVITY. PT WALKED TO COMMODE AND BACK. RN NOTIFIED.
--- NOTE | 2021-08-14 18:54 | PC.NURSE ---
This patient, Tamara Lion, was transferred to [facility] on 08/14/21 at 1855. Personal belongings sent with patient. Report given to Shavonne. Appropriate documentation sent with patient.
[2021-08-15] VITALS (8 sets, daily range): BP systolic 99–129; BP diastolic 60–80; PULSE 67–84; RESP 14–18; TEMP 35.8–36.7; O2SAT 90–96
[2021-08-15] MEDS: ENOXAPARIN 80 MG/0.8 ML SYRINGE 70 MG SUB-Q (08:50)
[2021-08-15] MEDS: PANTOPRAZOLE 40 MG TABLET PO (08:51)
--- NOTE | 2021-08-15 13:37 | PM.IMPN ---
Progress Note: A&P Assessment and Plan (1) Pulmonary embolism: Code(s): I26.99 - Other pulmonary embolism without acute cor pulmonale Status: Acute Assessment and Plan: Patient developed worsening acute respiratory failure the other day. CTA chest performed due to elevated DDimer above the other inflammatory markers. CTA chest showing acute pulmonary emboli in the right upper lobe. There are groundglass opacities throughout all lung zones, worse in the mid and lower lung zones. LE doppler showing right peroneal DVT. Lovenox dose increased. Estvean states she can afford Eliquis so will change her over to Eliquis. (2) Sepsis with acute hypoxic respiratory failure: Qualifiers: Sepsis type: sepsis due to unspecified organism Severe sepsis shock status: without septic shock Qualified Code(s): A41.9 - Sepsis, unspecified organism; R65.20 - Severe sepsis without septic shock; J96.01 - Acute respiratory failure with hypoxia Code(s): A41.9 - Sepsis, unspecified organism; R65.20 - Severe sepsis without septic shock; J96.01 - Acute respiratory failure with hypoxia Status: Acute Assessment and Plan: Patient with leukopenia and considerable bandemia (29%) on admission. She also had low-grade fever, tachypnea and respiratory failure. She was treated with Rocephin and azithromycin for 2 days but then stopped. Blood cultures negative. Chest x-ray more consistent with COVID. Repeat CXR 08/09 showing diffuse disease. She completed dexamethasone. She does well at rest but considerable hypoxia with exertion. Suspect multifactorial from deconditioning, persistent COVID PNA and now PE. Decadron resumed. Continue supportive care. Encouraged her to be up to the chair if possible. Wean O2 as tolerated. (3) Pneumonia due to COVID-19 virus: Code(s): U07.1 - COVID-19; J12.82 - Pneumonia due to coronavirus disease 2019 Status: Acute Assessment and Plan: Patient presents with shortness of breath and cough. She tested positive for COVID on 08/01/2021. She was started on Decadron on admission. She refused the remdesivir and baricitinib. Continue supportive care. Encouraged her to lay prone as she tolerates. (4) Elevated LFTs: Code(s): R79.89 - Other specified abnormal findings of blood chemistry Status: Acute Assessment and Plan: AST 163 and ALT 116 on admission. Unclear this is acute or chronic but suspect related to COVID. Levels improving. No abdominal pain to suggest acute hepatitis. Hepatitis panel pending. RUQ ultrasound normal. Suspect elevated LFTs related to COVID. Subjective Date/time seen: 08/15/21 13:37 Interval history: 70yo healthy female here for cough and SOB and found to have COVID PNA. She is unvaccinated. No SOB or CP. +PINEDA. No n/v. Eating better. Exam Narrative: AF 97.6 121/60 84 14 90% 2L Gen - NARD lying semi-recumbent in bed Chest - few scattered inspiraotry rhonchi o/w clear, nml RR CV - RRR S1/S2 Abd - Soft, NT/ND, Positive BS Ext - No pedal edema Psych - Nml mood and affect Skin - Warm and dry Objective Data Vital Signs Vital Signs: Vital Signs - 24 hr 08/14/21 16:00 08/14/21 20:00 08/14/21 20:49 Temperature 98.2 F 96.8 F L Pulse Rate 97 98 Respiratory Rate 22 H 18 Blood Pressure 113/56 L 98/72 L Pulse Oximetry 93 93 93 08/15/21 00:00 08/15/21 06:54 08/15/21 08:00 Temperature 96.5 F L 96.8 F L 97.6 F Pulse Rate 71 67 84 Respiratory Rate 18 18 14 Blood Pressure 110/60 99/64 L 121/60 Pulse Oximetry 93 94 91 08/15/21 09:15 Temperature Pulse Rate Respiratory Rate Blood Pressure Pulse Oximetry 90 Intake/Output Intake/Output: Intake & Output 08/12/21 08/13/21 08/14/21 08/15/21 23:59 23:59 23:59 23:59 Intake Total 570 1146 1820 600 Output Total 1300 500 Balance -208 753 6453 600 Meds/Results Medications: Active Medications Generic Name Dose Route Start Last Admin Trad
[2021-08-15] MEDS: APIXABAN 5 MG TABLET 10 MG PO (21:56)
[2021-08-16] VITALS (12 sets, daily range): BP systolic 106–114; BP diastolic 55–68; PULSE 64–89; RESP 16–21; TEMP 35.7–36.3; O2SAT 79–97
--- NOTE | 2021-08-16 | ECHO_ITS ---
Patient Info Name: Tamara Lion Age: 70 years : 1950 Gender: Female Ht: 63 in Wt: 175 lbs BSA: 1.91 m2 HR: 73 bpm BP: 107 / 55 mmHg Technical Quality: Good Exam Date: 08/16/2021 2:27 PM Exam Location: [facility] Pulmonary Patient Status: Inpatient Admit Date: 08/01/2021 Staff Ordering Physician: Jameel Santiago MD Material Spreader: Héctor Bear, KIMMY, RT Attending Provider: Ronnie Whitley MD Exam Type: CA echo doppler color flow Study Info Indications R06.02 - Shortness of breath Complete two-dimensional, color flow and Doppler transthoracic echocardiogram is performed. Summary 1. Complete two-dimensional, color flow and Doppler transthoracic echocardiogram is performed. 2. Left ventricular chamber dimension is normal. 3. Left ventricular systolic function is normal, estimated at 60-65%. 4. The left ventricular diastolic function is grade I diastolic dysfunction. 5. E/e' 7 is not elevated. 6. Right ventricular chamber dimension is moderately enlarged. 7. The mitral valve has mildly calcified leaflets. 8. There is mild tricuspid valve regurgitation. 9. No pulmonary hypertension, estimated pulmonary arterial systolic pressure is 34 mmHg. Left Ventricle E/e' 7 is not elevated. Left ventricular chamber dimension is normal. Left ventricular systolic function is normal, estimated at 60-65%. The left ventricular diastolic function is grade I diastolic dysfunction. Right Ventricle Right ventricular chamber dimension is moderately enlarged. Right ventricular systolic function is normal. Left Atria Left atrial chamber dimension is normal. Right Atria Right atrial chamber dimension is normal. Aortic Valve The aortic valve is trileaflet. There is no aortic valve stenosis. There is no aortic valve regurgitation. Pulmonic Valve There is no pulmonic regurgitation. Mitral Valve The mitral valve has mildly calcified leaflets. There is no mitral valve stenosis. There is no mitral valve regurgitation. Tricuspid Valve There is mild tricuspid valve regurgitation. No pulmonary hypertension, estimated pulmonary arterial systolic pressure is 34 mmHg. Pericardium/Pleural There is no pericardial effusion. Inferior Vena Cava Normal inferior vena cava with >50% collapse upon inspiration consistent with normal right atrial pressure, 5 mmHg. Aorta The aortic root size at the sinus of Valsalva is normal. Left Ventricular Outflow Tract Name Value Normal LVOT 2D LVOT Diameter 2.0 cm LVOT Doppler LVOT Peak Gradient 5 mmHg LVOT Mean Gradient 2 mmHg LVOT VTI 19 cm LVOT VTI/AV VTI Ratio 0.9 LVOT Stroke Volume 59 ml Mitral Valve Name Value Normal MV Doppler MV Decel [place] 274 cm/s2
[2021-08-16] MEDS: PANTOPRAZOLE 40 MG TABLET PO (10:01)
[2021-08-16] MEDS: APIXABAN 5 MG TABLET 10 MG PO ×2 (10:01→21:45)
--- NOTE | 2021-08-16 11:18 | PM.IMPN ---
Progress Note: A&P Assessment and Plan (1) Pulmonary embolism: Code(s): I26.99 - Other pulmonary embolism without acute cor pulmonale Status: Acute Assessment and Plan: Patient developed worsening acute respiratory failure above the baseline. CTA chest performed due to elevated DDimer above the other inflammatory markers. CTA chest showing acute pulmonary emboli in the right upper lobe. There are groundglass opacities throughout all lung zones, worse in the mid and lower lung zones. LE doppler showing right peroneal DVT. She had been on prophylactic dosing of Lovenox but Lovenox dose increased to therapeutic dosing. Patient states she can afford Eliquis so Eliquis started yesterday. (2) Sepsis with acute hypoxic respiratory failure: Qualifiers: Sepsis type: sepsis due to unspecified organism Severe sepsis shock status: without septic shock Qualified Code(s): A41.9 - Sepsis, unspecified organism; R65.20 - Severe sepsis without septic shock; J96.01 - Acute respiratory failure with hypoxia Code(s): A41.9 - Sepsis, unspecified organism; R65.20 - Severe sepsis without septic shock; J96.01 - Acute respiratory failure with hypoxia Status: Acute Assessment and Plan: Patient with leukopenia and considerable bandemia (29%) on admission. She also had low-grade fever, tachypnea and respiratory failure. She was treated with Rocephin and azithromycin for 2 days but then stopped. Blood cultures negative. Chest x-ray more consistent with COVID. Repeat CXR 08/09 showing diffuse disease. She completed dexamethasone. She does well at rest but considerable hypoxia with exertion. Suspect multifactorial from deconditioning, persistent COVID PNA and now PE. Decadron resumed. Will check Echo and BNP. Continue supportive care. Encouraged her to be up to the chair for as long as possible. Wean O2 as tolerated. (3) Pneumonia due to COVID-19 virus: Code(s): U07.1 - COVID-19; J12.82 - Pneumonia due to coronavirus disease 2019 Status: Acute Assessment and Plan: Patient presents with shortness of breath and cough. She tested positive for COVID on 08/01/2021. She was started on Decadron on admission. She refused the remdesivir and baricitinib. Continue supportive care. Encouraged her to lay prone as she tolerates. Wean O2 as toelrated. (4) Elevated LFTs: Code(s): R79.89 - Other specified abnormal findings of blood chemistry Status: Acute Assessment and Plan: AST 163 and ALT 116 on admission. Unclear this is acute or chronic but suspect acute related to COVID. Levels improving again. No abdominal pain to suggest acute hepatitis. Hepatitis panel pending. RUQ ultrasound normal. Follow Subjective Date/time seen: 08/16/21 11:18 Interval history: 70yo healthy female here for cough and SOB and found to have COVID PNA. She is unvaccinated. No SOB at rest. Slept well. Eating okay. No CP. She still has significant PINEDA with exertion. She has been using the bedside commode and not walking to the bathroom. She denies dysphagia and odynophagia but states she is having trouble with her pills. RN states patient requires 5L with activity but still drops to 87% and has a hard time recovering. Exam Narrative: AF 96.3 110/56 74 21 91% 5L Gen - NARD sitting up in the chair but appears drained (with head in her hands on the table) Chest - bilateral mid and lower lobe inspiratory crackles. nml RR CV - RRR S1/S2 Abd - Soft, NT/ND, Positive BS Ext - No pedal edema Psych - Nml mood and affect Skin - Warm and dry Objective Data Vital Signs Vital Signs: Vital Signs - 24 hr 08/15/21 12:00 08/15/21 16:00 08/15/21 19:59 Temperature 97.6 F 98.0 F Pulse Rate 84 84 84 Respiratory Rate 14 14 14 Blood Pressure 113/63 123/75 Pulse Oximetry 91 96 96 08/15/21 22:00 08/16/21 00:00 08/16/21 08:00 Temperature 97.9 F 96.9 F L 96.3 F L Pulse Rate 76 71 74 Respiratory Rate
--- NOTE | 2021-08-16 11:31 | HOMEO2EVAL ---
Evaluation was performed at [facility] Home Oxygen Evaluation RC: Home Oxygen (O2) Evaluation Start: 08/15/21 17:11 Freq: ONCE Status: Active Protocol: RPE Activity Type Activity Date Activity User E-Sign Co-Sign Detail Recorded Client Recorded Date Recorded By Document 08/16/21 09:30 MARILIN [email or web address] 08/16/21 11:31 MARILIN Document 08/16/21 09:31 MARILIN [email or web address] 08/16/21 11:31 MARILIN Document 08/16/21 09:32 MARILIN [id number] 08/16/21 11:31 MARILIN Document 08/16/21 09:35 MARILIN [email or web address] 08/16/21 11:31 MARILIN Document 08/16/21 09:40 MARILIN [email or web address] 08/16/21 11:31 MARILIN Document 08/16/21 09:43 MARILIN [email or web address] 08/16/21 11:31 MARILIN Document 08/16/21 10:00 MARILIN [email or web address] 08/16/21 11:31 MARILIN 08/16/21 08/16/21 08/16/21 09:30 09:31 09:32 Home O2 Evaluation Test Phase Resting Exercise Exercise Oxygen Delivery High Flow Nasal High Flow High Flow Cannula Therapy with Therapy with Nasal Cannula Nasal Cannula Oxygen Flow Rate (L/min) 2 2 4 Pulse Oximetry (90-100 %) 92 79 L 82 L Home Oxygen Evaluation Comments Treatment Charges O2 Evaluation - Inpatient 08/16/21 08/16/21 08/16/21 09:35 09:40 09:43 Home O2 Evaluation Test Phase Exercise Exercise Exercise Oxygen Delivery High Flow High Flow High Flow Therapy with Therapy with Therapy with Nasal Cannula Nasal Cannula Nasal Cannula Oxygen Flow Rate (L/min) 5 6 10 Pulse Oximetry (90-100 %) 83 L 86 L 88 L Home Oxygen Evaluation Comments PT TRANSFERED TO CHAIR, DESATS SEE NOTE IN CHART Treatment Charges 08/16/21 10:00 Home O2 Evaluation Test Phase Resting Oxygen Delivery High Flow Therapy with Nasal Cannula Oxygen Flow Rate (L/min) 5 Pulse Oximetry (90-100 %) 89 L Home Oxygen Evaluation Comments Treatment Charges
--- NOTE | 2021-08-16 11:31 | PCRCNOTE ---
HOME O2 EVAL REPEATED AGAIN TODAY. 2 L AT REST, OVER 6 L WITH TRANSFER FROM BED TO CHAIR. HAD UP TO 10 L DURING EVAL AND STILL DESATS, TOOK APPROX 10 MIN TO RECOVER, STILL AT 88% ON 5L WHEN IN CHAIR. RN NOTIFIED.
[2021-08-16 11:54] LABS: Basophils Percent Auto 0.4 % (0.2-1.2); Eosinophils Absolute Auto 0.1 K/mm3 (0-0.3); Hematocrit 41.9 % (37.0-47.0); Hemoglobin 14.1 g/dL (12.0-15.0); Immature Granulocyte Absolute 0.09 K/mm3 (0.00-0.031); Immature Granulocyte Percent A 0.8 % (0-0.5); Lymphocytes Absolute Auto 0.94 K/mm3 (0.9-3.2); Lymphocytes Percent Auto 8.6 % (18.3-44.2); Mean Corpuscular HGB Conc 33.7 g/dl (32-36); Mean Corpuscular Hemoglobin 31.8 pg (26-34); Mean Corpuscular Volume 94.6 fl (80-100); Mean Platelet Volume 9.4 fl (7.4-10.4); Monocytes Absolute Auto 0.4 K/mm3 (0.1-0.6); Monocytes Percent Auto 3.5 % (2.6-8.5); Neutrophils Absolute Auto 9.3 K/mm3 (1.3-6.7); Neutrophils Percent Auto 85.7 % (45.5-73.1); Platelet Count Result 173 k/mm3 (150-375); Red Blood Count 4.43 M/mm3 (4.2-5.4); Red Cell Distribution Width 12.8 % (11.5-14.5); White Blood Count 10.9 K/mm3 (4.5-10.0)
[2021-08-16 12:12] LABS: NT Pro B Type Natriuretic Pept 48 pg/mL (5-100)
[2021-08-16 13:03] LABS: Alanine Aminotransferase 54 U/L (4-35); Albumin Level 3.6 g/dL (3.5-5.1); Alkaline Phosphatase 146 U/L (38-126); Anion Gap 8 mmol/L (8-16); Aspartate Amino Transferase 37 U/L (14-36); Bilirubin,Total 0.4 mg/dL (0.2-1.3); Blood Urea Nitrogen 23 mg/dL (7-17); Calcium 8.8 mg/dL (8.4-10.2); Carbon Dioxide 23 mmol/L (22-30); Chloride 103 mmol/L (98-107); Estimated CRCL calculation 56 ml/min; Estimated Glomerular Filt Rate > 60; Glucose 181 mg/dL (65-110); Lactate Dehydrogenase 545 U/L (313-618); Phosphorus 3.5 mg/dL (2.5-4.5); Potassium 4.3 mmol/L (3.4-5.0); Sodium 134 mmol/L (137-145)
[2021-08-16 16:05] LABS: NT Pro B Type Natriuretic Pept 47 pg/mL (5-100)
[2021-08-16 16:08] LABS: CRP 1.2 mg/dL (<1.0)
--- NOTE | 2021-08-16 18:00 | PCPTNOTE ---
The patient treatment was not able to be completed. Will plan to continue treatment per plan of care.
[2021-08-17 04:00] VITALS: BP 120/64; PULSE 62; RESP 18; TEMP 35.9; O2SAT 99
[2021-08-17 07:22] LABS: Basophils Percent Auto 0.3 % (0.2-1.2); Eosinophils Absolute Auto 0.1 K/mm3 (0-0.3); Hematocrit 41.6 % (37.0-47.0); Hemoglobin 13.5 g/dL (12.0-15.0); Immature Granulocyte Percent A 1.1 % (0-0.5); Lymphocytes Absolute Auto 1.74 K/mm3 (0.9-3.2); Lymphocytes Percent Auto 18.6 % (18.3-44.2); Mean Corpuscular HGB Conc 32.5 g/dl (32-36); Mean Corpuscular Hemoglobin 31.1 pg (26-34); Mean Corpuscular Volume 95.9 fl (80-100); Monocytes Absolute Auto 0.6 K/mm3 (0.1-0.6); Monocytes Percent Auto 6.8 % (2.6-8.5); Neutrophils Absolute Auto 6.8 K/mm3 (1.3-6.7); Neutrophils Percent Auto 72.2 % (45.5-73.1); Platelet Count Result 178 k/mm3 (150-375); Red Blood Count 4.34 M/mm3 (4.2-5.4); Red Cell Distribution Width 12.8 % (11.5-14.5); White Blood Count 9.4 K/mm3 (4.5-10.0)
[2021-08-17 07:40] LABS: Alanine Aminotransferase 63 U/L (4-35); Albumin Level 3.6 g/dL (3.5-5.1); Alkaline Phosphatase 142 U/L (38-126); Anion Gap 7 mmol/L (8-16); Aspartate Amino Transferase 36 U/L (14-36); Bilirubin,Total 0.5 mg/dL (0.2-1.3); Blood Urea Nitrogen 23 mg/dL (7-17); Calcium 8.8 mg/dL (8.4-10.2); Carbon Dioxide 27 mmol/L (22-30); Chloride 102 mmol/L (98-107); Estimated CRCL calculation 63 ml/min; Estimated Glomerular Filt Rate > 60; Glucose 101 mg/dL (65-110); Sodium 136 mmol/L (137-145)
[2021-08-17 08:00] VITALS: BP 98/62; PULSE 67; RESP 16; TEMP 36.2; O2SAT 93
[2021-08-17] MEDS: PANTOPRAZOLE 40 MG TABLET PO (09:30)
[2021-08-17] MEDS: APIXABAN 5 MG TABLET 10 MG PO ×2 (09:30→21:05)
[2021-08-17 10:08] LABS: Free T4 Free Thyroxine Reflex 1.69 ng/dL (0.78-2.19)
--- NOTE | 2021-08-17 11:33 | PM.IMPN ---
Progress Note: A&P Assessment and Plan (1) Pulmonary embolism: Qualifiers: Pulmonary embolism type: unspecified Chronicity: acute Acute cor pulmonale presence: without acute cor pulmonale Qualified Code(s): I26.99 - Other pulmonary embolism without acute cor pulmonale Code(s): I26.99 - Other pulmonary embolism without acute cor pulmonale Status: Acute Assessment and Plan: CTA chest showing acute pulmonary emboli in the right upper lobe. LE doppler showing right peroneal DVT. Continue apixaban (2) Pneumonia due to COVID-19 virus: Code(s): U07.1 - COVID-19; J12.82 - Pneumonia due to coronavirus disease 2018 Status: Acute Assessment and Plan: Patient presents with shortness of breath and cough. She tested positive for COVID on 08/01/2021. Continue dexamethasone She refused remdesivir and baricitinib. Wean O2 as toelrated. (3) Sepsis with acute hypoxic respiratory failure: Qualifiers: Sepsis type: sepsis due to unspecified organism Severe sepsis shock status: without septic shock Qualified Code(s): A41.9 - Sepsis, unspecified organism; R65.20 - Severe sepsis without septic shock; J96.01 - Acute respiratory failure with hypoxia Code(s): A41.9 - Sepsis, unspecified organism; R65.20 - Severe sepsis without septic shock; J96.01 - Acute respiratory failure with hypoxia Status: Acute Assessment and Plan: Patient with leukopenia and considerable bandemia (29%) on admission. She also had low-grade fever, tachypnea and respiratory failure. She was treated with Rocephin and azithromycin for 2 days but then stopped. Blood cultures negative. Chest x-ray more consistent with COVID. Repeat CXR 08/09 showing diffuse disease. Resolved (4) Elevated LFTs: Code(s): R79.89 - Other specified abnormal findings of blood chemistry Status: Acute Assessment and Plan: AST 163 and ALT 116 on admission. Unclear this is acute or chronic but suspect acute related to COVID. Right upper quadrant ultrasound normal Viral hepatitis panel for ABC all negative 08/17 ALT 63 and AST 36 Subjective Date/time seen: 08/17/21 11:33 Interval history: 70yo healthy female here for cough and SOB and found to have COVID PNA. She is unvaccinated. 08/17 visit: Less short of breath with exertion. No shortness of breath at rest. Denied chest pain. Taste and smell intact. Denied GI complaints or abnormal bleeding. Review of Systems Review of Systems: All systems reviewed & are unremarkable except as noted in HPI and below Exam Narrative: Gen -alert and cooperative. Oriented to person place and time. No acute distress. Chest -normal effort. Slightly coarse breath sounds. Scattered lower lobe crackles. CV -normal S1 and S2. Regular rate. No audible murmurs. Abd - Soft, NT/ND, Positive BS Ext - No pedal edema Neuro-cranial nerves 3-12 intact to inspection Skin - Warm and dry Objective Data Vital Signs Vital Signs: Vital Signs - 24 hr 08/16/21 12:30 08/16/21 16:00 08/16/21 20:00 Temperature 97.1 F L 96.9 F L 97.4 F L Pulse Rate 89 85 64 Respiratory Rate 21 H 20 16 Blood Pressure 107/55 L 106/62 109/57 L Pulse Oximetry 91 96 97 08/17/21 04:00 08/17/21 08:00 Temperature 96.7 F L 97.1 F L Pulse Rate 62 67 Respiratory Rate 18 16 Blood Pressure 120/64 98/62 L Pulse Oximetry 99 93 Intake/Output Intake/Output: Intake & Output 08/14/21 08/15/21 08/16/21 08/17/21 23:59 23:59 23:59 23:59 Intake Total 1820 1160 1862 560 Balance 1820 1160 1862 560 Meds/Results Medications: Active Medications Generic Name Dose Route Start Last Admin Trade Name Suhailq PRN Reason Stop Dose Admin Acetaminophen 650 mg 08/01/21 17:16 08/02/21 00:01 Acetaminophen 325 Mg Tablet PO 650 mg Q4H PRN Administration Mild Pain (1-3) or Fever Apixaban 10 mg 08/15/21 21:00 08/17/21 09:30 Apixaban 5 Mg Tablet
[2021-08-17 12:00] VITALS: BP 114/66; PULSE 77; RESP 16; TEMP 36.6; O2SAT 97
[2021-08-17 12:00] LABS: Total Triiodothyronine (T3) 1.13 NG/ML (0.97-1.69)
--- NOTE | 2021-08-17 14:50 | PCPTNOTE ---
Attempted to see patient, OT present in patient's room for treatment. Will attempt tomorrow per PT POC.
[2021-08-17 16:00] VITALS: BP 115/68; PULSE 67; RESP 20; TEMP 36.5; O2SAT 97
[2021-08-17 20:00] VITALS: BP 105/64; PULSE 66; RESP 20; TEMP 36.2; O2SAT 96
[2021-08-17 23:53] VITALS: BP 120/62; PULSE 61; RESP 18; TEMP 36.6; O2SAT 97
[2021-08-18 04:00] VITALS: BP 122/73; PULSE 66; RESP 14; TEMP 36.4; O2SAT 99
[2021-08-18 06:24] LABS: Hematocrit 44.8 % (37.0-47.0); Hemoglobin 14.7 g/dL (12.0-15.0); Mean Corpuscular HGB Conc 32.8 g/dl (32-36); Mean Corpuscular Hemoglobin 32.1 pg (26-34); Mean Corpuscular Volume 97.8 fl (80-100); Mean Platelet Volume 11.1 fl (7.4-10.4); Platelet Count Result 172 k/mm3 (150-375); Red Blood Count 4.58 M/mm3 (4.2-5.4); White Blood Count 11.3 K/mm3 (4.5-10.0)
[2021-08-18 06:44] LABS: Alanine Aminotransferase 58 U/L (4-35); Albumin Level 3.4 g/dL (3.5-5.1); Alkaline Phosphatase 137 U/L (38-126); Anion Gap 9 mmol/L (8-16); Aspartate Amino Transferase 29 U/L (14-36); Bilirubin,Total 0.4 mg/dL (0.2-1.3); Blood Urea Nitrogen 23 mg/dL (7-17); CRP 0.8 mg/dL (<1.0); Calcium 8.6 mg/dL (8.4-10.2); Carbon Dioxide 24 mmol/L (22-30); Chloride 102 mmol/L (98-107); Estimated CRCL calculation 63 ml/min; Estimated Glomerular Filt Rate > 60; Glucose 101 mg/dL (65-110); Potassium 3.9 mmol/L (3.4-5.0); Sodium 135 mmol/L (137-145)
[2021-08-18 08:00] VITALS: BP 111/69; PULSE 68; RESP 20; TEMP 37.3; O2SAT 96
[2021-08-18] MEDS: APIXABAN 5 MG TABLET 10 MG PO ×2 (09:37→20:15)
[2021-08-18] MEDS: PANTOPRAZOLE 40 MG TABLET PO (09:37)
--- NOTE | 2021-08-18 10:18 | PM.IMPN ---
Progress Note: A&P Assessment and Plan (1) Pulmonary embolism: Qualifiers: Pulmonary embolism type: unspecified Chronicity: acute Acute cor pulmonale presence: without acute cor pulmonale Qualified Code(s): I26.99 - Other pulmonary embolism without acute cor pulmonale Code(s): I26.99 - Other pulmonary embolism without acute cor pulmonale Status: Acute Assessment and Plan: CTA chest showing acute pulmonary emboli in the right upper lobe. LE doppler showing right peroneal DVT. Continue apixaban (2) Pneumonia due to COVID-19 virus: Code(s): U07.1 - COVID-19; J12.82 - Pneumonia due to coronavirus disease 2018 Status: Acute Assessment and Plan: Patient presents with shortness of breath and cough. She tested positive for COVID on 08/01/2021. Continue dexamethasone She refused remdesivir and baricitinib. Wean O2 as toelrated. (3) Sepsis with acute hypoxic respiratory failure: Qualifiers: Sepsis type: sepsis due to unspecified organism Severe sepsis shock status: without septic shock Qualified Code(s): A41.9 - Sepsis, unspecified organism; R65.20 - Severe sepsis without septic shock; J96.01 - Acute respiratory failure with hypoxia Code(s): A41.9 - Sepsis, unspecified organism; R65.20 - Severe sepsis without septic shock; J96.01 - Acute respiratory failure with hypoxia Status: Acute Assessment and Plan: Patient with leukopenia and considerable bandemia (29%) on admission. She also had low-grade fever, tachypnea and respiratory failure. She was treated with Rocephin and azithromycin for 2 days but then stopped. Blood cultures negative. Chest x-ray more consistent with COVID. Repeat CXR 08/09 showing diffuse disease. Resolved (4) Elevated LFTs: Code(s): R79.89 - Other specified abnormal findings of blood chemistry Status: Acute Assessment and Plan: AST 163 and ALT 116 on admission. Unclear this is acute or chronic but suspect acute related to COVID. Right upper quadrant ultrasound normal Viral hepatitis panel for ABC all negative 08/17 ALT 63 and AST 36 08/18 ALT 58, AST 29 Subjective Date/time seen: 08/18/21 10:18 Interval history: 70yo healthy female here for cough and SOB and found to have COVID PNA. She is unvaccinated. 08/18 visit: A little less short of breath with exertion. No shortness of breath at rest. Denied chest pain. Taste and smell intact. Denied GI complaints or abnormal bleeding. Review of Systems Review of Systems: All systems reviewed & are unremarkable except as noted in HPI and below Exam Narrative: Gen -alert and cooperative. Oriented to person place and time. No acute distress. Chest -normal effort. Diminished BS. CV -normal S1 and S2. Regular rate. No audible murmurs. Abd - Soft, NT/ND, Positive BS Ext - No pedal edema Neuro-cranial nerves 3-12 intact to inspection Skin - Warm and dry Objective Data Vital Signs Vital Signs: Vital Signs - 24 hr 08/17/21 12:00 08/17/21 16:00 08/17/21 20:00 Temperature 97.9 F 97.7 F 97.1 F L Pulse Rate 77 67 66 Respiratory Rate 16 20 20 Blood Pressure 114/66 115/68 105/64 Pulse Oximetry 97 97 96 08/17/21 23:53 08/18/21 04:00 08/18/21 08:00 Temperature 97.9 F 97.5 F L 99.2 F Pulse Rate 61 66 68 Respiratory Rate 18 14 20 Blood Pressure 120/62 122/73 111/69 Pulse Oximetry 97 99 96 Intake/Output Intake/Output: Intake & Output 08/15/21 08/16/21 08/17/21 08/18/21 23:59 23:59 23:59 23:59 Intake Total 1160 1862 1540 1230 Balance 1160 1862 1540 1230 Meds/Results Medications: Active Medications Generic Name Dose Route Start Last Admin Trade Name Freq PRN Reason Stop Dose Admin Acetaminophen 650 mg 08/01/21 17:16 08/02/21 00:01 Acetaminophen 325 Mg Tablet PO 650 mg Q4H PRN Administration Mild Pain (1-3) or Fever Apixaban 10 mg 08/15/21 21:00 08/18/21 09:37 Apixaban 5
[2021-08-18 12:00] VITALS: BP 109/66; PULSE 78; RESP 14; TEMP 36.4; O2SAT 98
[2021-08-18 16:00] VITALS: BP 120/73; PULSE 79; RESP 14; TEMP 36.2; O2SAT 97
[2021-08-18 18:47] VITALS: BP 116/69; PULSE 70; RESP 28; TEMP 36.1; O2SAT 100
[2021-08-18 20:00] VITALS: O2SAT 94
[2021-08-19] VITALS (7 sets, daily range): BP systolic 96–123; BP diastolic 51–67; PULSE 63–78; RESP 18–24; TEMP 36.2–36.6; O2SAT 93–98
[2021-08-19] MEDS: APIXABAN 5 MG TABLET 10 MG PO ×2 (08:15→20:39)
[2021-08-19] MEDS: PANTOPRAZOLE 40 MG TABLET PO (08:16)
--- NOTE | 2021-08-19 11:36 | PM.IMPN ---
Progress Note: A&P Assessment and Plan (1) Sepsis with acute hypoxic respiratory failure: Qualifiers: Sepsis type: sepsis due to unspecified organism Severe sepsis shock status: without septic shock Qualified Code(s): A41.9 - Sepsis, unspecified organism; R65.20 - Severe sepsis without septic shock; J96.01 - Acute respiratory failure with hypoxia Code(s): A41.9 - Sepsis, unspecified organism; R65.20 - Severe sepsis without septic shock; J96.01 - Acute respiratory failure with hypoxia Status: Acute Assessment and Plan: Patient with leukopenia and considerable bandemia (29%) on admission. She also had low-grade fever, tachypnea and respiratory failure. She was treated with Rocephin and azithromycin for 2 days but then stopped. Blood cultures negative. Chest x-ray more consistent with COVID. Repeat CXR 08/09 showing diffuse disease. CTA chest 08/13 as mentioned below. Sepsis resolved Patient still with considerable hypoxia with exertion. She is 2L at rest but requires oxymizer up to 7L with exertion. She also has a long time to recover. Will have Respiratory determine O2 requirement with exertion to see if SNF facility can take her. Repeat CXR. (2) Pulmonary embolism: Qualifiers: Pulmonary embolism type: unspecified Chronicity: acute Acute cor pulmonale presence: without acute cor pulmonale Qualified Code(s): I26.99 - Other pulmonary embolism without acute cor pulmonale Code(s): I26.99 - Other pulmonary embolism without acute cor pulmonale Status: Acute Assessment and Plan: Patient developed worsening acute respiratory failure above the baseline. CTA chest performed due to elevated DDimer above the other inflammatory markers. CTA chest showing acute pulmonary emboli in the right upper lobe. There are groundglass opacities throughout all lung zones, worse in the mid and lower lung zones. LE doppler showing right peroneal DVT. She had been on prophylactic dosing of Lovenox but Lovenox dose increased to therapeutic dosing. Patient has been transitioned to Eliquis (3) Pneumonia due to COVID-19 virus: Code(s): U07.1 - COVID-19; J12.82 - Pneumonia due to coronavirus disease 2019 Status: Acute Assessment and Plan: Patient presents with shortness of breath and cough. She tested positive for COVID on 08/01/2021. She refused remdesivir and baricitinib. She completed a course of dexamethasone but resumed due to persistent hypoxia mostly with exertion. Wean O2 as toelrated. (4) Elevated LFTs: Code(s): R79.89 - Other specified abnormal findings of blood chemistry Status: Acute Assessment and Plan: AST 163 and ALT 116 on admission. Unclear this is acute or chronic but suspect acute related to COVID. Right upper quadrant ultrasound normal Viral hepatitis panel for ABC all negative 08/17 ALT 63 and AST 36 08/18 ALT 58, AST 29 Subjective Date/time seen: 08/19/21 11:36 Interval history: 70yo healthy female here for cough and SOB and found to have COVID PNA. She is unvaccinated. Resuming care. Chart reviewed. She denies CP or SOB at rest. She still has significant PINEDA. No n/v. No abd pain. Exam Narrative: AF 97.2 112/67 75 24 95% 6L Gen -NARD Chest - inspiraotry crackles in the mid and lower lung watson. CV - RRR S1/S2 Abd - Soft, NT/ND, Positive BS Ext - No pedal edema Psych - nml mood and affect Skin - Warm and dry Objective Data Vital Signs Vital Signs: Vital Signs - 24 hr 08/18/21 12:00 08/18/21 16:00 08/18/21 18:47 Temperature 97.6 F 97.1 F L 97.0 F L Pulse Rate 78 79 70 Respiratory Rate 14 14 28 H Blood Pressure 109/66 120/73 116/69 Pulse Oximetry 98 97 100 08/18/21 20:00 08/19/21 00:00 08/19/21 04:00 Temperature 97.8 F 97.4 F L Pulse Rate 78 63 Respiratory Rate 24 H 24 H Blood Pressure 110/62 123/65 Pulse Oximetry 94 93 97 08/19/21 08:00 Temperature 97.2 F L Pulse Rate 75 Respirator
--- NOTE | 2021-08-19 13:58 | PCRCNOTE ---
Evaluated patient for Home O2 this morning. On ambulation patient desaturated to 77% on 7lpm oxymizer. Testing stopped due to patient shortness of breath and slow recovery. Spoke with Dr. Santiago regarding potential SNF placement due to high oxygen needs. O2 set-up on hold until discharge destination finalized. MD and RN aware.
[2021-08-20 05:51] VITALS: BP 120/71; PULSE 62; RESP 18; TEMP 36.4; O2SAT 96
[2021-08-20 08:00] VITALS: O2SAT 96
[2021-08-20] MEDS: APIXABAN 5 MG TABLET 10 MG PO (09:04)
[2021-08-20] MEDS: PANTOPRAZOLE 40 MG TABLET PO (09:05)
--- NOTE | 2021-08-20 10:33 | PM.IMPN ---
Progress Note: A&P Assessment and Plan (1) Sepsis with acute hypoxic respiratory failure: Qualifiers: Sepsis type: sepsis due to unspecified organism Severe sepsis shock status: without septic shock Qualified Code(s): A41.9 - Sepsis, unspecified organism; R65.20 - Severe sepsis without septic shock; J96.01 - Acute respiratory failure with hypoxia Code(s): A41.9 - Sepsis, unspecified organism; R65.20 - Severe sepsis without septic shock; J96.01 - Acute respiratory failure with hypoxia Status: Acute Assessment and Plan: Patient with leukopenia and considerable bandemia (29%) on admission. She also had low-grade fever, tachypnea and respiratory failure. She was treated with Rocephin and azithromycin for 2 days but then stopped. Blood cultures negative. Chest x-ray more consistent with COVID. CTA chest 08/13 as mentioned below. Sepsis resolved. Patient still with considerable hypoxia with exertion. Had her tested again yesterday afternoon and she requires 2L at rest and 6L with exertion. CXR 08/19 showing extensive bilateral pulm infiltrates. Plan for SNF placement. (2) Pulmonary embolism: Qualifiers: Pulmonary embolism type: unspecified Chronicity: acute Acute cor pulmonale presence: without acute cor pulmonale Qualified Code(s): I26.99 - Other pulmonary embolism without acute cor pulmonale Code(s): I26.99 - Other pulmonary embolism without acute cor pulmonale Status: Acute Assessment and Plan: Patient developed worsening acute respiratory failure above the baseline. CTA chest performed due to elevated DDimer above the other inflammatory markers. CTA chest 08/13 showing acute pulmonary emboli in the right upper lobe. There are groundglass opacities throughout all lung zones, worse in the mid and lower lung zones. LE doppler showing right peroneal DVT. She had been on prophylactic dosing of Lovenox but Lovenox dose increased to therapeutic dosing. Patient has been transitioned to Eliquis (3) Pneumonia due to COVID-19 virus: Code(s): U07.1 - COVID-19; J12.82 - Pneumonia due to coronavirus disease 2019 Status: Acute Assessment and Plan: Patient presents with shortness of breath and cough. She tested positive for COVID on 08/01/2021. She refused remdesivir and baricitinib. She completed a course of dexamethasone but dexamethasone resumed due to persistent hypoxia mostly with exertion. Wean O2 as tolerated (4) Elevated LFTs: Code(s): R79.89 - Other specified abnormal findings of blood chemistry Status: Acute Assessment and Plan: AST 163 and ALT 116 on admission. Unclear this is acute or chronic but suspect acute related to COVID. Right upper quadrant ultrasound normal Viral hepatitis panel for ABC all negative 08/17 ALT 63 and AST 36 08/18 ALT 58, AST 29 Follow periodically Subjective Date/time seen: 08/20/21 10:33 Interval history: 70yo healthy female here for cough and SOB and found to have COVID PNA. She is unvaccinated. Feels better. PINEDA is better if she 'takes it slow'. No CP or abd pain. Eating well. Cold air seems to make things worse Exam Narrative: AF 97.6 120/71 62 18 96% 2L Gen -NARD lying semi-recumbent in bed Chest - clear distantBS, nml RR CV - RRR S1/S2 Abd - Soft, NT/ND, Positive BS Ext - No pedal edema Psych - nml mood and affect Skin - Warm and dry Objective Data Vital Signs Vital Signs: Vital Signs - 24 hr 08/19/21 14:31 08/19/21 15:34 08/19/21 20:00 Temperature 97.7 F Pulse Rate 73 Respiratory Rate 23 H Blood Pressure 96/51 L Pulse Oximetry 94 97 96 08/19/21 22:35 08/20/21 05:51 08/20/21 08:00 Temperature 97.8 F 97.6 F Pulse Rate 67 62 Respiratory Rate 18 18 Blood Pressure 114/65 120/71 Pulse Oximetry 98 96 96 Intake/Output Intake/Output: Intake & Output 08/17/21 08/18/21 08/19/21 08/20/21 23:59 23:59 23:59 23:59 Intake Total 1540 1480 0307 357 B
--- NOTE | 2021-08-20 13:49 | PM.DS ---
DS: Admitting Diagnosis Discharge Date 08/20/21 Admitting Diagnosis Shortness of breath DS: Discharge Diagnosis Discharge Diagnosis (1) Sepsis with acute hypoxic respiratory failure: Qualifiers: Sepsis type: sepsis due to unspecified organism Severe sepsis shock status: without septic shock Qualified Code(s): A41.9 - Sepsis, unspecified organism; R65.20 - Severe sepsis without septic shock; J96.01 - Acute respiratory failure with hypoxia Code(s): A41.9 - Sepsis, unspecified organism; R65.20 - Severe sepsis without septic shock; J96.01 - Acute respiratory failure with hypoxia Status: Resolved Assessment and Plan: Patient with leukopenia and considerable bandemia (29%) on admission. She also had low-grade fever, tachypnea and respiratory failure. She was treated with Rocephin and azithromycin for 2 days but then stopped. Blood cultures negative. Chest x-ray more consistent with COVID. CTA chest 08/13 as mentioned below. Sepsis symptoms related to COVID and have resolved with treatment for COVID. Patient still with considerable hypoxia with exertion. She had multiple home O2 evaluations and would become considerably hypoxic with even minimal exertion. CXR 08/19 showing extensive bilateral pulm infiltrates. Plan for acute rehab placement (2) Pulmonary embolism: Qualifiers: Acute cor pulmonale presence: without acute cor pulmonale Chronicity: acute Pulmonary embolism type: unspecified Qualified Code(s): I26.99 - Other pulmonary embolism without acute cor pulmonale Code(s): I26.99 - Other pulmonary embolism without acute cor pulmonale Status: Acute Assessment and Plan: Patient developed worsening acute respiratory failure above the baseline. CTA chest performed due to elevated DDimer above the other inflammatory markers. CTA chest 08/13 showing acute pulmonary emboli in the right upper lobe. There are groundglass opacities throughout all lung zones, worse in the mid and lower lung zones. LE doppler showing right peroneal DVT. She had been on prophylactic dosing of Lovenox but Lovenox dose increased to therapeutic dosing. Patient has been transitioned to Eliquis (3) Pneumonia due to COVID-19 virus: Code(s): U07.1 - COVID-19; J12.82 - Pneumonia due to coronavirus disease 2019 Status: Acute Assessment and Plan: Patient presents with shortness of breath and cough. She tested positive for COVID on 08/01/2021. She refused remdesivir and baricitinib. She completed a course of dexamethasone but dexamethasone resumed due to persistent hypoxia mostly with exertion. (4) Elevated LFTs: Code(s): R79.89 - Other specified abnormal findings of blood chemistry Status: Acute Assessment and Plan: AST 163 and ALT 116 on admission. Unclear this is acute or chronic but suspect acute related to COVID. Right upper quadrant ultrasound normal. Viral hepatitis panel for ABC all negative. Levels trended down. DS: Summary Hospital Course Reason for hospitalization: 70yo healthy female here for cough and SOB and found to have COVID PNA. Please see H&P for details Hospital Course: Please see above for details of hospital course Status at Discharge Cognitive/behavioral status at discharge: Stable Time Spent with Patient Time attestation: Total time spent providing and/or coordinating discharge services: 38 minutes Time spent: Greater than 30 minutes Specific discharge activities: Discussed care with rehab physician Exam Narrative: AF 97.6 120/71 62 18 96% 2L Gen -NARD lying semi-recumbent in bed Chest - clear distantBS, nml RR CV - RRR S1/S2 Abd - Soft, NT/ND, Positive BS Ext - No pedal edema Psych - nml mood and affect Skin - Warm and dry Discharge Plan Discharge Attending physician on discharge: Jameel Santiago Consulting providers: Abran Butterfield ; Jas Holley ; Mason Montoya ; Osito Slaughter ; Avery Ng ;
[2021-08-20 14:06] VITALS: BP 116/64; PULSE 84; RESP 18; TEMP 36.6; O2SAT 97
== END 2021-08-20 16:40 | DRG 871 ==
LOC: ANHED 16:42 → ANHIMU 08-05 10:45 → ANH3MEDSUR 08-15 10:37 → ANHIMU 08-21 09:20
PROVIDERS: Emergency Medicine; Internal Medicine; Admitting Provider Internal Medicine; Emergency Provider Family Medicine; PCP Family Medicine Adolescent Medicine; Visit Provider Student in an Organized Health Care Education/Training Program
DX: A41.89 Other specified sepsis (principal); U07.1 COVID-19; J12.82 Pneumonia due to coronavirus disease 2019; J96.01 Acute respiratory failure with hypoxia; I26.99 Other pulmonary embolism without acute cor pulmonale; E87.1 Hypo-osmolality and hyponatremia; R65.20 Severe sepsis without septic shock; R79.89 Other specified abnormal findings of blood chemistry; Z53.29 Procedure and treatment not carried out because of patient's decision for other reasons
CPT/HCPCS: 36415; 36600; 71045; 71046; 71275; 76705; 80048; 80053; 80074; 82565; 82728; 82805; 83605; 83615; 83735; 83880; 84100; 84439; 84443; 84460; 84480; 85025; 85027; 85055; 85380; 85610; 86140; 87040; 93005; 93306; 93970; 94618; 97110; 97161; 97165; 97530; 97535; 99285; A9270; C9803; J0456; J0696; J1100; J1650; J1940; J7030; Q9967; U0003; U0005

== ENCOUNTER 2021-08-22 17:35 | Emergency (ER) | payer OTHER, MEDICARE, SELFPAY ==
--- NOTE | ~2021-08-22 | XR_ITS ---
EXAMINATION: XR chest 2V DATE: 08/22/2021 19:12 INDICATION: Shortness of breath, history of COVID 19 TECHNIQUE: AP and lateral views of the chest are obtained. COMPARISON: 08/19/2021 FINDINGS: There are patchy opacities throughout all lung zones, worst in the left mid and lower lung zones, without significant change. There is no pleural effusion or pneumothorax. The cardiomediastina l silhouette is normal. There is moderate thoracic spondylosis. IMPRESSION: 1. Stable diffuse lung disease, consistent with COVID 19 pneumonia. Reviewed, dictated and finalized at location [facility]
[2021-08-22 17:40] VITALS: BP 113/72; PULSE 100; RESP 24; TEMP 36.8; O2SAT 94
[2021-08-22 17:55] VITALS: BP 113/72; PULSE 82; RESP 24; TEMP 36.3; O2SAT 94
[2021-08-22 18:01] VITALS: O2SAT 94
--- NOTE | 2021-08-22 18:09 | ECG_ITS ---
Measurements Intervals [place] Rate: 75 P: 43 MN: 147 QRS: 8 QRSD: 82 T: -21 QT: 370 QTc: 414 Interpretive Statements SINUS RHYTHM CANNOT RULE OUT SEPTAL INFARCT, AGE INDETERMINATE CONSIDER INFERIOR INFARCT, AGE INDETERMINATE BASELINE ARTIFACT- I, II, III, AVR ABNORMAL ECG Electronically Signed On 08-22-2021 22:46:13 REPLENISHMENT MERCHANDISING ASSOCIATE by Avery Ng D.O.
[2021-08-22 18:30] LABS: Basophils Absolute Auto 0.1 K/mm3 (0.0-0.1); Basophils Percent Auto 0.4 % (0.2-1.2); Eosinophils Absolute Auto 0.5 K/mm3 (0-0.3); Eosinophils Percent Auto 4.1 % (0-4.4); Hematocrit 43.7 % (37.0-47.0); Hemoglobin 14.2 g/dL (12.0-15.0); Immature Granulocyte Absolute 0.14 K/mm3 (0.00-0.031); Immature Granulocyte Percent A 1.2 % (0-0.5); Lymphocytes Absolute Auto 2.23 K/mm3 (0.9-3.2); Lymphocytes Percent Auto 19.1 % (18.3-44.2); Mean Corpuscular HGB Conc 32.5 g/dl (32-36); Mean Corpuscular Hemoglobin 31.4 pg (26-34); Mean Corpuscular Volume 96.7 fl (80-100); Mean Platelet Volume 9.4 fl (7.4-10.4); Monocytes Absolute Auto 0.7 K/mm3 (0.1-0.6); Monocytes Percent Auto 5.6 % (2.6-8.5); Neutrophils Absolute Auto 8.1 K/mm3 (1.3-6.7); Neutrophils Percent Auto 69.6 % (45.5-73.1); Platelet Count Result 198 k/mm3 (150-375); Red Blood Count 4.52 M/mm3 (4.2-5.4); Red Cell Distribution Width 13.8 % (11.5-14.5); White Blood Count 11.7 K/mm3 (4.5-10.0)
[2021-08-22 18:39] LABS: Alanine Aminotransferase 93 U/L (4-35); Albumin Level 3.8 g/dL (3.5-5.1); Alkaline Phosphatase 147 U/L (38-126); Anion Gap 7 mmol/L (8-16); Aspartate Amino Transferase 47 U/L (14-36); Bilirubin,Total 0.4 mg/dL (0.2-1.3); Blood Urea Nitrogen 21 mg/dL (7-17); Calcium 8.8 mg/dL (8.4-10.2); Carbon Dioxide 28 mmol/L (22-30); Chloride 102 mmol/L (98-107); Estimated CRCL calculation 55 ml/min; Estimated Glomerular Filt Rate > 60; Glucose 131 mg/dL (65-110); Potassium 4.2 mmol/L (3.4-5.0); Sodium 137 mmol/L (137-145)
--- NOTE | 2021-08-22 18:52 | ED.GENADULT ---
HPI - General Adult General Chief complaint: Shortness of Breath/Dyspnea Stated complaint: SOB, prior COVID + Time Seen by Provider: 08/22/21 18:22 Source: patient, EMS and RN notes reviewed Mode of arrival: EMS Limitations: no limitations History of Present Illness HPI narrative: Patient is 70 years old white female brought to the emergency room from rehab because of decreased heart rate on exertion. Patient denies any symptoms at that time. Rehab staff noticed that the patient heart rate is high while walking and called 911 for evaluation. Patient had COVID infection August 01, 2021, never been vaccinated for COVID, been hospitalized he then went to rehab since July 05. Currently patient on chronic 3 L of oxygen, goes up to 4 L with activity. Currently patient denying any fever, chills, nausea, vomiting, diarrhea, constipation, abdominal pain, chest pain, shortness of breath, headache or any other symptoms. Patient is awake, alert and oriented x4, does not know why they sent her to us today. Related Data Allergies Allergy/AdvReac Type Severity Reaction Status Date / Time No Known Allergies Allergy Verified 08/01/21 14:26 Review of Systems Review of Systems: CONSTITUTIONAL: Denies fever, chills, or sweats. EYES: Denies visual changes, redness, or discharge. ENT: Denies rhinorrhea, congestion, sore throat, or otalgia. CARDIOVASCULAR: Denies chest pain, palpitations, or edema. RESPIRATORY: Denies cough or dyspnea. GASTROINTESTINAL: Denies abdominal pain, nausea, vomiting, or diarrhea. GENITOURINARY: Denies dysuria or hematuria. SKIN: Denies rash or itching. MUSCULOSKELETAL: Denies back pain, joint pain, or myalgia. NEUROLOGIC: Denies headache, numbness, or weakness. PSYCHIATRIC: Denies anxiety or depression. [facility] Past Medical History Medical History No significant medical problems Urinary incontinence Surgical History Surgical History No history of previous surgery Family History Family History Father , Age 75 Fletcher's lung Mother , Age 70 Heart failure Social History Social History Social History: She lives at home with her of 50 years. 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 She has 2 adult sons who are in good health. She rarely drinks alcohol and only in small amounts. Primary care physician: Dr. Mendoza Graff Code status: Full code Surrogate decision maker: Smoking status: Never smoker Alcohol intake: former Substance use: never Spiritual care concerns: No Exam Narrative: General appearance: Well-developed, well-nourished Skin: Normal color Head: Normocephalic, nontraumatic Eyes: Clear conjunctiva ENT: Oropharynx normal, ears normal, nose normal Neck: Supple, nontender Chest and respiratory: Airway patent, no respiratory distress, no accessory muscle use Heart: Regular rate/rhythm Abdomen: Soft, nontender, no organomegaly, quiet bowel sounds Vascular: Normal peripheral pulses, normal capillary refill. Musculoskeletal: Normal range of motion, nontender back Neurologic: Alert and oriented ?3, MOLD CARRIER is normal as tested, no gross motor deficit Course Course Emergency Course: Stable Vital Signs Vital signs: Vital Signs Temperature 36.8 C 08/22/21 17:40 Pulse Rate 100 08/22/21 17:40 Respiratory Rate 24 H 08/22/21 17:40 Blood Pressure 113/72 08/22/21 17:40 Pulse Oximetry 94 08/22/21 17:40
[2021-08-22 19:22] LABS: Lactic Acid Reflex 1.8 mmol/L (0.7-2.1)
[2021-08-22 19:23] LABS: INR 1.1; Prothrombin Time 13.6 Seconds (11.1-14.7)
[2021-08-22 19:24] LABS: Partial Thromboplastin Time 25.7 SECONDS (22.3-36.8)
[2021-08-22 19:36] LABS: CRP 1.6 mg/dL (<1.0)
[2021-08-22 20:35] LABS: Add Urine Microscopic? YES; Appearance Urine Clear (Clear); Bilirubin Urine Negative (Negative); Blood Urine Negative (Negative); Color Urine Yellow (Yellow); Glucose Urine UA Negative (Negative); Ketones Urine Negative (Negative); Leukocyte Esterase Ur Trace LEU/UL (Negative); Mucus Urine Rare /lpf; Nitrate Urine Negative (Negative); Protein Urine Negative (Negative); RBC Urine 0-2 /hpf (0-2); Squamous Epithelial Cell Urine Occasional /hpf (Few); WBC Urine 16-20 /hpf
--- NOTE | 2021-08-22 22:10 | PC.NURSE ---
made contact with [facility] eta [id number]
--- NOTE | 2021-08-22 22:47 | PC.NURSE ---
TRANSPORT WILL NOT BE ABLE TO TRANSPORT UNTIL MIDNIGHT, PT AWARE
[2021-08-23 01:05] VITALS: BP 122/84; PULSE 86; RESP 20; O2SAT 97
--- NOTE | 2021-08-23 01:21 | PC.NURSE ---
made contact with [employer] at 0030 about a new eta. company stated 15 minutes until arrival. made contact with [employer] at 0121 for updated eta 0300
[2021-08-23 02:50] VITALS: BP 118/67; PULSE 73; RESP 18; O2SAT 95
--- NOTE | 2021-08-23 03:11 | PC.NURSE ---
made contact with [employer] to for an updated eta of [id number]
[2021-08-23 03:53] VITALS: BP 101/51; PULSE 80; RESP 18; O2SAT 94
--- NOTE | 2021-08-23 04:31 | PC.NURSE ---
carlene has arrived and is aware that pt is going to [facility]
== END 2021-08-23 04:42 ==
PROVIDERS: Emergency Provider Emergency Medicine; PCP Family Medicine Adolescent Medicine
DX: J18.9 Pneumonia, unspecified organism (principal); R00.0 Tachycardia, unspecified; U09.9 Post COVID-19 condition, unspecified; Z99.81 Dependence on supplemental oxygen; R94.31 Abnormal electrocardiogram [ECG] [EKG]; R82.998 Other abnormal findings in urine; Z79.01 Long term (current) use of anticoagulants
CPT/HCPCS: 36415; 71046; 80053; 81001; 83605; 85025; 85610; 85730; 86140; 87040; 87086; 87147; 87181; 87186; 93005; 99284

== ENCOUNTER 2021-10-02 07:51 | Outpatient (CLI) | payer MEDICARE, SELFPAY ==
--- NOTE | 2021-10-02 14:53 | WPDSIXMINUTE ---
Six Minute Walk Procedure Procedure Performed Pulmonary Stress Test (6 min walk) Six Minute Walk This 6 minute walk test was carried out with the patient breathing supplemental oxygen at 1 liter/minute. The pre walk oxyhemoglobin saturation was 95% . The patient walked 213 m with no stops recorded During the walk the oxyhemoglobin saturation remained over 93%. Impression: No oxyhemoglobin desaturation on this testing..
== END 2021-10-02 07:52 | disposition home or self-care (01) ==
LOC: ANHPFT 07:52
PROVIDERS: PCP Family Medicine Adolescent Medicine; Visit Provider Family Medicine Adolescent Medicine
DX: J18.9 Pneumonia, unspecified organism (principal)
CPT/HCPCS: 94618

== ENCOUNTER 2022-01-14 09:30 | Outpatient (RCR) | payer MEDICARE, SELFPAY ==
[2021-09-17 08:58] VITALS: PULSE 84
== END 2022-01-14 23:59 | disposition home or self-care (01) ==
LOC: ANHCPREHAB 09:30
PROVIDERS: PCP Family Medicine Adolescent Medicine; Visit Provider Family Medicine Adolescent Medicine
DX: I26.99 Other pulmonary embolism without acute cor pulmonale (principal); J12.82 Pneumonia due to coronavirus disease 2019
CPT/HCPCS: 94625; G0239

== ENCOUNTER 2022-01-17 09:31 | Outpatient (RCR) | payer MEDICARE, SELFPAY ==
[2022-01-16 00:03] VITALS: PULSE 84
== END 2022-01-17 16:30 | disposition home or self-care (01) ==
LOC: ANHCPREHAB 09:31
PROVIDERS: PCP Family Medicine Adolescent Medicine; Visit Provider Family Medicine Adolescent Medicine
DX: I26.99 Other pulmonary embolism without acute cor pulmonale (principal); J12.82 Pneumonia due to coronavirus disease 2019
CPT/HCPCS: G0239

== ENCOUNTER 2022-02-12 08:24 | Outpatient (CLI) | payer MEDICARE, SELFPAY ==
--- NOTE | 2022-02-18 14:37 | WPDSIXMINUTE ---
Six Minute Walk Procedure Procedure Performed Pulmonary Stress Test (6 min walk) Six Minute Walk Six Minute Walk: DATE OF SERVICE: 02/12/2022 REQUESTING: Mendoza Combs MD REASON FOR TESTING: PE; post COVID SIX MINUTE WALK This study was conducted per ATS guidelines. This test was conducted with the patient breathing room air, initial saturation was 97% and pulse was 79. Blood pressure was 122/75. The patient walked for 6 minutes without stopping. The lowest saturation was 92%. Pulse increased to 117. During recovery after 2 minutes, the saturation was 96% and the pulse was 91. Distance walked was 800 ft/ 243 m. The patient did not stop to rest. IMPRESSION: This is a normal walk study without need for supplemental oxygen with exertion.
== END 2022-02-12 08:25 | disposition home or self-care (01) ==
LOC: ANHPFT 08:26
PROVIDERS: PCP Family Medicine Adolescent Medicine; Visit Provider Family Medicine Adolescent Medicine
DX: U09.9 Post COVID-19 condition, unspecified (principal)
CPT/HCPCS: 94618

== ENCOUNTER 2024-07-28 08:29 | Emergency (ER) | payer MEDICARE, SELFPAY ==
--- NOTE | ~2024-07-28 | CT_ITS ---
EXAMINATION: CT brain wo con DATE: 07/28/2024 09:58 INDICATION: Head injury TECHNIQUE: Computed tomography (CT) of the head was performed without intravenous contrast. Sagittal and coronal reconstructions were performed. The mA was adjusted according to patient size. Iterative reconstruction technique was employed. The dose-length product was 605.33 mGy-cm. COMPARISON: None FINDINGS: No fracture. There is a right parietal intraparenchymal hemorrhage measuring approximately 4.7 x 3.1 x 2.8 cm. This appears to extend to the surface of the brain with small amount of associated subarach noid hemorrhage. There is some surrounding vasogenic edema with local mass effect and effacement of a few of the surrounding sulci. There is however no subfalcine or uncal herniation. No acute intracran ial infarction or abnormal extra axial fluid collection. There is additional mild scattered white mat ter hypoattenuation consistent with chronic small vessel ischemic disease. Ventricles remain normal and symmetric. No other intracranial masses identified. The orbits, paranasal sinuses and mastoid air cells are normal. IMPRESSION: 1. Moderate-sized right parietal intraparenchymal hematoma with small amount of overlying subarachnoi d hemorrhage. Dr. Montoya discussed these findings with Dr. Cuadra at 9:58 AM. Reviewed, dictated and finalized at location B. MAKER IMPRESSION: 1. Moderate-sized right parietal intraparenchymal hematoma with small amount of overlying subarachnoid hemorrhage. Dr. Montoya discussed these findings with Dr. Cuadra at 9:58 AM.
--- NOTE | ~2024-07-28 | CT_ITS ---
CT cervical spine wo con Ordering provider: Joyce Cuadra PA-C History: . head injury . Comparison: None. Technique: CT of the cervical spine was performed without contrast. Sagittal and coronal reformatted images were also obtained and reviewed. Automated exposure control and iterative reconstruction ciara hnique were employed. The dose-length product was 217.02 mGy-cm. FINDINGS: VERTEBRAE: No subluxation or acute fracture. The occipital condyles are intact. Degenerative changes of the spine. 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 DISC SPACES: Narrowing of the disc C5-C6. Multilevel facet joint disease. Multilevel uncovertebral tara int osteoarthritic changes. Narrowing of the left foramina at the level of C4-C5. Bilateral narrowing of the foramina with moderate spinal canal stenosis at the level of C5-C6. PARASPINOUS SOFT TISSUES: Normal. Fibrotic changes of the lungs. IMPRESSION: No acute osseous abnormality cervical spine. Reviewed, dictated and finalized at location A. RIOR DESIGN INSTRUCTOR
[2024-07-28 08:37] VITALS: BP 138/74; PULSE 86; RESP 18; TEMP 36.4; O2SAT 96
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
[2024-07-28 10:15] VITALS: BP 150/79; PULSE 81; RESP 19; O2SAT 96
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
[2024-07-28 11:09] VITALS: BP 138/81; PULSE 82; RESP 16; O2SAT 100
[2024-07-28] MEDS: ACETAMINOPHEN 500 MG TABLET 1000 MG PO (11:22)
--- OUTSIDE RECORDS SUMMARY | 2024-08-04 16:38 | XMS_ITS | Clinical Summary ---
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 Circulation appears adequate (good ankle and foot pulses). Focus on leg strengthening exercises (walking, for example) to build tone and help venous return to the heart Eliquis samples given. Will research the savings options (medicare doesn't allow savings cards from the sales and marketing professional, however). GoodRx was not much of a savings either. BP is controlled Checking thyroid function Given the combined pulmonary embolism and DVT, plus the rough course of Covid (virus leaves lingering elevated risk for clots), it would make better sense to leave Eliquis in place. Encounter for Medicare annual wellness exam 09/04 Assessment & Plan (03/10/2024 10:47 AM CDT): A(n) yearly Medicare Annual Wellness Visit has been performed today. Tamara Lion is not up to date on screening tests. She is in need of DEXA, Breast cancer screening, hepatitis B and C, and Cholesterol screening. She is not up to date on needed preventative vaccinations; She is in need of Pneumonia (Prevnar-13 or Pneumovax-23) and Zoster. We discussed healthy lifestyle habits, educational material has been given. Medications reviewed, changes documented as per the medical record and discussed with patient along with risks vs benefits. Return in 6 months Assessment & Plan (09/29/2022 10:33 AM INTERNATIONAL MARKETING MANAGER): A(n) yearly Medicare Annual Wellness Visit has been performed today. Tamara Lion is not up to date on screening tests. She is in need of Breast cancer screening and Colon cancer screening. She is not up to date on needed preventative vaccinations; She is in need of Zoster. We discussed healthy lifestyle habits, educational material has been given. Medications reviewed, changes documented as per the medical record and discussed with patient along with risks vs benefits. Return in 1 year Assessment & Plan (09/27/2021 3:55 PM INTERNATIONAL MARKETING MANAGER): A initial Medicare Annual Wellness Visit has been performed today. Tamara Lion is not up to date on screening tests. She is in need of DEXA, Breast cancer screening and Colon cancer screening- these have been ordered. She is up to date on needed preventative vaccinations BP is controlled Labs as ordered Continue Eliquis, vitamin D Zinc, I think we can probably put that one up now. A good multivitamin- multimineral like Centrum should provide enough of that mineral DEXA, mammogram ordered for [place] Colonoscopy ordered () with Dr. Chawla Colon cancer screening 09/24/2021 Overview (09/24/2021): Added automatically from request for surgery [id number] Immunizations Name Administration Dates Next Due Influenza, Trivalent, High D ose, Split, Preservative Free, Intramuscular 05/13/2016 Influenza, Unspecified 09/29/2022(Deferr ed: Patient Refused),12/04/2021(Deferred: Patient Refused),09/24/2021(Deferred: Patient Refused),09/24/2021(Deferred: Patient Refused),08/03/2021(Deferred: Patient Refused),10/02/2020(Deferred: Patient Refused),08/03/2020(Deferred: Patient Refused) Pneumococcal Conjugate PCV 13 12/04/2021 (Deferred: Patient Refused),09/24/2021(Deferred: Patient Refused) Tdap 05/13/2016 Surgical History Surgery Date Site/Laterality Comments DILATION AND CURETTAGE OF UTERUS Medical History Medical History Date Comments Pneumonia Hx of blood clots 08/01/2021 right leg Family History Medical History Relation Name Comments No Known Problems Brother 1 polysubstance abuse Brother 2 fro m overdose No Known Problems Brother 3 accidental electrocution Arthritis Father farmers lung Father Heart attack Maternal Grandfather Uterine cancer Maternal Grandmother heart tumor Mother No Known Problems Paternal Grandfather Stomach cancer Paternal Grandmother Relation Name Status Comments Brother 1 Alive Brother 2 Brother 3 Father Maternal Grandfather Maternal Grandmother Mother Paternal Grandfather Paternal Grandmother Social History Tobacco Use Types Packs/Day Years Used Date Smoking Tobacco: Never Smokeless Tobacco: Never Tobacco Cessation:Counseling Given: Not Answered Humiliation, Afraid, Rape, and Kick questionnair e Answer Date Recorded Within the last year, have y ou been afraid of your partner or ex-partner? No 09/27/2021 Within the last year, have y ou been humiliated or emotionally abused in other ways by your partner or ex-partner? No Within the last year, have y ou been kicked, hit, slapped, or otherwise physically hurt by your partner or ex-partner? No 09/27/2021 Within the last year, have y ou been raped or forced to have any kind of sexual activity by your partner or ex-partner? No 09/27/2021 Social Connection and Isolation Panel [NHANES] A nswer Date Recorded Frequency of Communication with Friends and Fami ly Not on file 09/27/2021 Frequency of Social Gatherings with Friends and Family Not on file 09/27/2021 Attends Zoroastrianism Services Not on file 09/27 Active Member of Clubs or Organizations Not on f ile 09/27/2021 Attends Club or Organization Meetings Not on theo e 09/27/2021 Are you , , di vorced, , never , or living with a partner? 09/27/2021 AUDIT-C Answer Date Recorded Q1: How often do you have a drink containing alc ohol? Monthly or less 09/29/2022 Q2: How many drinks containi ng alcohol do you have on a typical day when you are drinking? 1 or 2 09/29/2022 Q3: How often do you have si x or more drinks on one occasion? Never 09/29/2022 Overall Financial Resource Strain (CARDIA) Answe r Date Recorded How hard is it for you to pa y for the very basics like food, housing, medical care, and heating? Not hard at all 09/27/2021 PHQ-2 Answer Date Recorded PHQ-2 Total Score (If total score is 3 or more points, staff should administer the PHQ-9) 0 03/10/2024 [facility] of Occupat ional Health - Occupational Stress Questionnaire Answer Date Recorded Do you feel stress - tense, restless, nervous, or anxious, or unable to sleep at night because your mind is troubled all the time - these days? Only a little 09/27/2021 Housing Stability Vital Sign Answer Agus e Recorded Unable to Pay for Housing in the Last Year Not o n file 09/27/2021 Number of Places Lived in the Last Year Not on f ile 09/27/2021 In the last 12 months, was t here a time when you did not have a steady place to sleep or slept in a skilled nursing (including now)? No 09/27/2021 Personal Safety Answer Date Recorded Getting School Help Needed Not on file 08/01 Education Answer Date Recorded What is the highest level of school you have completed or the highest degree you have received? 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 N ot on file Obstetrics History Last Filed Vital Signs Vital Sign Reading Time Taken Comments Blood Pressure 108/70 03/10/2024 10:50 AM CDT Pulse 76 03/10/2024 10:50 AM CDT Temperature 36.5 ??C (97.7 ??F) 03/10/2024 10:50 AM C DT Respiratory Rate 16 03/10/2024 10:50 AM CDT Oxygen Saturation 95% 03/10/2024 10:50 AM CDT Inhaled Oxygen Concentration - - Weight 77.6 kg (171 lb) 03/10/2024 10:50 AM CDT Height 160 cm (5' 3 ) 03/10/2024 10:50 AM CDT Body Mass Index 30.29 03/10/2024 10:50 AM CDT Plan of Treatment Health Maintenance Due Date Last Done Comments Breast Cancer Screening-Mammogram 1950 Colon Cancer Screening-Colonoscopy 1950 Osteoporosis Screening-Bone Density Scan 12/04/2023 12/03/2021 Influenza Vaccine (#1) 2024 05/13/2016 Depression Screening 03/10/2025 03/10/2024, 09/29/2022, 09/24/2021, Additional history exists Fall Risk Assessment 03/10/2025 03/10/2024, 09/29/2022, 09/24/2021 Well Visit 65+ 03/10/2025 03/10/2024, 09/04, 09/24/2021 Zoster Vaccine (1 of 2) 03/10/2025 Post poned from 11/20/1999 (Patient declined, but will receive in the future) DTaP/Tdap/Td Vaccine (2 - Td or Tdap) 05/13/2026 05/13/2016 Hepatitis C Screening Completed 09/24/2021 Hepatitis B Screening Completed 03/10/2024 Pneumococcal vaccine 65+ Discontinued Procedures Procedure Name Priority Date/Time Associated Diagnosis Comments DEXA AXIAL SKELETON BONE DENSITY 1 OR MORE SITES Schedule Routine, Read Routine (OP Routine) 12/03/2021 1:36 PM CDT Screening for osteoporosis custodial (current) use of systemic steroids HEPATITIS C ANTIBODY Routine 09/24/2021 3:27 PM INTERNATIONAL MARKETING MANAGER Encounter for hepatitis C screening test for low risk patient from Last 3 Months or Most Recently Relevant to Health Maintenance Results * Dexa Axial Skeleton Bone Density 1 Or 2 Site (12/03/2021 1:36 PM CDT) Anatomical Region Laterality Modality Body N/A Other 12/03/2021 9:26 PM CDT Narrative 12/03/2021 9:27 PM CDT EXAM DESCRIPTION: ?? DEXA AXIAL SKELETON BONE DENSITY 1 OR MORE SITES REASON FOR STUDY: ?71 y/o ?? year old ?? F ??with given history of screening. Tool Chaser/Model: ?? [employer] SL (S/N [id number]) CLINICAL INFORMATION: Current height: ?? 63 ??inches ? Maximum height: 66 inches ? Weight: 166 pounds Risk factors: Steroid use, postmenopausal COMPARISON: None available. FINDINGS: AP LUMBAR SPINE L1-L4: Total BMD is ?? 1.082 ??g/cm2 T-score is 0.3 LEFT HIP: Total BMD is 0.880 g/cm2 T-score is -0.5 Femoral neck BMD is 0.714 g/cm2 T-score is -1.2 IMPRESSION: ??Based on the left femoral neck bone mineral density (T-score -1.2) the patient has low bone mass. Fracture risk assessment (FRAX): ? 10 year risk for a major osteoporotic fracture is 15 % ? 10 year risk for a hip fracture is 2.3 % The FRAX tool has not been validated in patients currently or previously treated with pharmacotherapy for osteoporosis. ??In such patients, clinical judgement must be exercised in interpreting FRAX scores as the fracture risk may be overestimated. REFERENCE: Bone mineral density: ? Normal (T-score above or = -1.0) ? Low bone mass ??(T-score between -1.0 and -2.5) replaces the previously used term osteopenia ? Osteoporosis (T-score = or below -2.5) Medical evaluation for secondary causes of low bone mineral density may be appropriate. FRAX is a World Health Organization validated fracture risk assessment tool that calculates a person's 10 year probability of a major osteoporosis related fracture and hip fracture. ??According to the National Osteoporosis Foundation guidelines, postmenopausal women and men age 50 or older with low bone mass and a 10 year probability of a major osteoporosis related fracture = or greater than 20% or a 10 year probability of a hip fracture = or greater than 3% should be considered for treatment. For further information, including treatment recommendations, please refer to the 2013 ISCD Official Positions (http://www.iscd.org) and the NOF's Clinician's Guide to Prevention and Treatment of Osteoporosis (http://www.nof.org/professionals/clinical-guidelines) THIS IS AN ELECTRONICALLY VERIFIED FINAL REPORT 12/03/2021 9:27 PM - Electronically signed by ??Raul Conklin M.D. MF: [email or web address] D: ??12/03/2021 9:27 PM T: ??12/03/2021 9:27 PM Report ID: [id number] Reading Location: ??[id number] Procedure Note Raul Conklin MD - 12/03/2021 EXAM DESCRIPTION: DEXA AXIAL SKELETON BONE DENSITY 1 OR MORE SITES REASON FOR STUDY: 71 y/o year old F with given history ofscreening. Tool Chaser/Model: [employer] (S/N [id number]) CLINICAL INFORMATION: Current height: 63 inches Maximum height: 66 inches Weight: 166 pounds Risk factors: Steroid use, postmenopausal COMPARISON: None available. FINDINGS: AP LUMBAR SPINE L1-L4: Total BMD is 1.082 g/cm2 T-score is 0.3 LEFT HIP: Total BMD is 0.880 g/cm2 T-score is -0.5 Femoral neck BMD is 0.714 g/cm2 T-score is -1.2 IMPRESSION: Based on the left femoral neck bone mineral density (T-score -1.2) the patient has low bone mass. Fracture risk assessment (FRAX): 10 year risk for a major osteoporotic fracture is 15 % 10 year risk for a hip fracture is 2.3 % The FRAX tool has not been validated in patients currently or previously treated with pharmacotherapy for osteoporosis. In such patients, clinical judgement must be exercised in interpreting FRAX scores as the fracturerisk may be overestimated. REFERENCE: Bone mineral density: Normal (T-score above or = -1.0) Low bone mass (T-score between -1.0 and -2.5) replaces thepreviously used term osteopenia Osteoporosis (T-score = or below -2.5) Medical evaluation for secondary causes of low bone mineral density may be appropriate. FRAX is a World Health Organization validated fracture risk assessmenttool that calculates a person's 10 year probability of a major osteoporosisrelated fracture and hip fracture. According to the National OsteoporosisFoundation guidelines, postmenopausal women and men age 50 or older with low bonemass and a 10 year probability of a major osteoporosis related fracture = or greater than 20% or a 10 year probability of a hip fracture = or greaterthan 3% should be considered for treatment. For further information, including treatment recommendations, please referto the 2013 ISCD Official Positions (http://www.iscd.org) and the NOF's Clinician's Guide to Prevention and Treatment of Osteoporosis (http://www.nof.org/professionals/clinical-guidelines) THIS IS AN ELECTRONICALLY VERIFIED FINAL REPORT 12/03/2021 9:27 PM - Electronically signed by Raul Conklin M.D. MF: [email or web address] Report ID: [id number] Reading Location: [place] [address] Yung Michel MD IMG DXA PROCEDURES Final Re sult * Hepatitis C antibody (09/24/2021 3:27 PM INTERNATIONAL MARKETING MANAGER) Pathologist [facility] [place] Hep C Ab Nonreactive Nonreactive [facility] Comment: Interpretive Data Nonreactive: Antibodies to HCV not detected. Does NOT exclude the possibility of recent exposure to HCV. Equivocal: Equivocal for HCV antibodies. Supplemental molecular testing will be automatically performed to determine infection status in accordance with current CDC screening recommendations. ?? Reactive: Positive for HCV antibodies. ??This may represent current or past HCV infection. Supplemental molecular testing will be automatically performed to determine ??current infection status in accordance with current CDC screening recommendations. Interpretive data was last revised on 2019. Blood 09/24/2021 3:27 PM INTERNATIONAL MARKETING MANAGER 09/24/2021 9:09 PM INTERNATIONAL MARKETING MANAGER Yung Michel MD LAB MICROBIOLOGY - GENERAL [place]AB[place] [id number] [address] Department [place] [address] from Last 3 Months or Most Recently Relevant to Health Maintenance Insurance [employer] MEDICARE MEDICARE [employer] Care Teams Cleaner Greaser Relationship Specialty Start Date End Date Yung Michel MD [address] [place] [address] PCP - General Family Medicine 09/24/21
--- OUTSIDE RECORDS SUMMARY | 2024-08-04 16:38 | XMS_ITS | Encounter Summary ---
Author Organization [facility] Healthcare Address [address] [place] [address] Care Team Providers Care Poultry Dressing Worker Name Role Phone Yung Michel MD Primary Care Provider [phone]- [phone] Reason for Visit * Reason Onset Date Comments Medicare AWV 09/24/2023 Encounter Details Date Type Department Care Team (Late st Contact Info) Description 09/24/2023 Telephone [facility] Primary Care at [address] [address] Yung Michel MD [address] [place] [id number] Medicare AWV Social History Tobacco Use Types Packs/Day Years Used Date Smoking Tobacco: Never Smokeless Tobacco: Never Humiliation, Afraid, Rape, and Kick questionnair e [...] and Family Not on file 09/27/2021 Attends Taoism Services Not on file 09/27 Active Member [...] points, staff should administer the PHQ-9) 0 09/29/2022 [facility] [place] of Occupat ional Health - Occupational Stress [...] place to sleep or slept in a mcc (including now)? 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 Pt is due and can be scheduled at the next available date. Thank you MAN documented in this encounter Plan of Treatment Not on file documented as of this encounter Visit Diagnoses Not on filedocumented in this encounter Care Teams Poultry Dressing Worker Relationship Specialty Start Date End Date Yung Michel MD [address] [place] [address] PCP - General Family Medicine 09/24/21 documented as of this encounter
--- OUTSIDE RECORDS SUMMARY | 2024-08-04 16:38 | XMS_ITS | Encounter Summary ---
Author Organization [facility] Address [address] [address] Care Team Providers Care Chemical Treatment Plant Technician Name Role Phone Yung Michel MD Primary Care Provider [phone] Encounter Details Date Type Department Care Team (Late st Contact Info) Description 10/10/2022 Telephone [facility] Primary Care at [address] [address] Nisha Hauser MA Social History Tobacco Use Types Packs/Day Years [...] and Family Not on file 09/27/2021 Attends [employer] Not on file 09/27 Active Member [...] staff should administer the PHQ-9) 0 09/29/2022 [facility] of Occupat ional Health - Occupational Stress [...] place to sleep or slept in a senior living (including now)? No 09/27/2021 Education Answer Date Recorded What is the highest level of school you have completed or the highest degree you have received? 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 I am ordering again. Please relay, and emphasize she needs to follow their instructions exactly MAKER documented in this encounter Plan of Treatment Not on file documented as of this encounter Visit Diagnoses Not on filedocumented in this encounter Care Teams Chemical Treatment Plant Technician Relationship Specialty Start Date End Date Yung Michel MD [address] [place] [id number] PCP - General Family Medicine 09/24/21 documented as of this encounter
--- OUTSIDE RECORDS SUMMARY | 2024-08-04 16:38 | XMS_ITS | Encounter Summary ---
Author Organization [facility] Healthcare Address [address] [place] [address] Care Team Providers Care Rug Measurer Name Role Phone Yung Michel MD Primary Care Provider +1- [phone] Encounter Details Date Type Department Care Team (Latest Contact Info) Description 03/10/2024 11:12 AM CDT - 03/10/2024 11:59 PM CDT Hospital Encounter [address] [address] Need for hepatitis B screening test; Screening for thyroid disorder; Lipid screening; On medication for venous thromboembolism (VTE) Discharge Disposition: Discharge to home or self care Social History Tobacco Use Types Packs/Day Years [...] and Family Not on file 09/27/2021 Attends Druze Services Not on file 09/27 Active Member [...] staff should administer the PHQ-9) 0 03/10/2024 [facility] of Occupat ional Health - Occupational Stress [...] place to sleep or slept in a [place] facility (including now)? 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 N ot on file documented as of this encounter Medications at Time of Discharge aspirin 81 mg enteric coated tablet Take 1 tablet (81 mg total) by mouth daily multivitamin capsule Take 1 capsule by mouth daily documented as of this encounter Discharge Disposition Disposition Code Departure Means Destination Discharge to home or self care documented in this encounter Plan of Treatment Not on file documented as of this encounter Procedures Procedure Name Priority Date/Time Associated Diagnosis Comments EGFR Routine 03/10/2024 11:12 AM CDT Lipid screening DIFFERENTIAL AUTO Routine 03/10/2024 11: 12 AM CDT Lipid screening On medication for venous thromboembolism (VTE) THYROID FUNCTION CASCADE Routine 03/10/2024 11:12 AM CDT Screening for thyroid disorder CBC WITH AUTO DIFFERENTIAL Routine 03/10/2024 11:12 AM CDT Lipid screening On medication for venous thromboembolism (VTE) HEPATITIS B CORE ANTIBODY, TOTAL Routine 03/10/2024 11:12 AM CDT Need for hepatitis B screening test HEPATITIS B SURFACE ANTIBODY (IMMUNE STATUS) Routine 03/10/2024 11:12 AM CDT Need for hepatitis B screening test HEPATITIS B SURFACE ANTIGEN Routine 03/10/2024 11:12 AM CDT Need for hepatitis B screening test LIPID PANEL Routine 03/10/2024 11:12 AM CDT Lipid screening COMPREHENSIVE METABOLIC PANEL Routine 03/10/2024 11:12 AM CDT Lipid screening documented in this encounter Results * eGFR (03/10/2024 11:12 AM CDT) eGFR 65 >=60 mL/min/1. 73 m2 Comment: Interpretive Data Reference Interval Normal ?>/= 90 mL/min/1.73m2 Mildly decreased* ? 60 - 89 mL/min/1.73m2 Mildly to moderately decreased ?45 - 59 mL/min/1.73m2 Moderately to severely decreased ??30 - 44 mL/min/1.73m2 Severely decreased ?15 - 29 mL/min/1.73m2 Kidney Failure ?< 15 ??mL/min/1.73m2 *Relative to young adult level Estimated glomerular filtration rate is determined by the 2020 CKD-EPI equation recommended by the National Kidney Foundation (A Unifying Approach to GFR Estimation: Recommendations of the NKF-ASK Task Force on Reassessing the Inclusion of Race in Diagnosing Kidney Disease, JASN 2020). The CKD-EPI equation should not be used for patients with unstable renal function and has not been validated in children and those over 70. Current interpretive data was last reviewed 2021. Blood 03/10/2024 11:1 2 AM CDT 03/10/2024 3:13 PM CDT us Yung Michel MD LAB BLOOD ORDERABLES Final Result Performing Organization Address City/State/[facility] Co al Phone Number [facility] [phone] [address] Department [place] [address] * Differential, auto (03/10/2024 11:12 AM CDT) Neutrophil abs 4.8 1.5 - 6.5 K/cumm Imm gran abs 0.0 0.0 - 0.1 K/cumm [facility] Lymphocyte abs 2.1 0.8 - 3.3 K/cumm [facility] Monocyte abs 0.7 0.2 - 0.8 K/cumm [facility] Eosinophil abs 0.3 0.0 - 0.5 K/cumm [facility] Basophil abs 0.1 0.0 - 0.1 K/cumm [facility] Neutrophil pct 60.1 % [facility] Comment: Interpretive Data Percent cell count reference ranges are not reported, since discordance with absolute values may lead to misinterpretation of CBC data. Current Interpretive Data was last revised on 2017. Imm gran pct 0.3 % [facility] Comment: Interpretive Data Percent cell count reference ranges are not reported, since discordance with absolute values may lead to misinterpretation of CBC data. Current Interpretive Data was last revised on 2017. Lymphocyte pct 26.4 % [facility] Comment: Interpretive Data Percent cell count reference ranges are not reported, since discordance with absolute values may lead to misinterpretation of CBC data. Current Interpretive Data was last revised on 2017. Monocyte pct 8.9 % [facility] Comment: Interpretive Data Percent cell count reference ranges are not reported, since discordance with absolute values may lead to misinterpretation of CBC data. Current Interpretive Data was last revised on 2017. Eosinophil pct 3.5 % [facility] Comment: Interpretive Data Percent cell count reference ranges are not reported, since discordance with absolute values may lead to misinterpretation of CBC data. Current Interpretive Data was last revised on 2017. Basophil pct 0.8 % [facility] Comment: Interpretive Data Percent cell count reference ranges are not reported, since discordance with absolute values may lead to misinterpretation of CBC data. Current Interpretive Data was last revised on 2017. Blood 03/10/2024 11:1 2 AM CDT 03/10/2024 3:09 PM CDT us Yung Michel MD LAB BLOOD ORDERABLES Final Result [facility] [address] [address] Department [place] [address] * (ABNORMAL) CBC with auto differential (03/10/2024 11:12 AM CDT) WBC 8.0 3.8 - 9.9 K/cumm Hgb 13.1 11.9 - 15.5 g/dL [facility] Hct 41.3 35.6 - 45.5 % [facility] Plt 210 150 - 400 K/cumm [facility] MPV 11.5 9.1 - 12.3 fL [facility] RBC 4.30 3.90 - 5.20 M/cumm [facility] MCV 96.0 81.3 - 96.4 fL [facility] MCH 30.5 27.1 - 33.3 pg [facility] MCHC 31.7(L) 32.3 - 35.7 g/dL [facility] RDW CV 13.2 11.1 - 14.9 % [facility] RDW SD 46.5 35.7 - 48.1 fL [facility] NRBC abs 0.00 0.00 - 0.01 K/cumm [facility] Blood 03/10/2024 11:1 2 AM CDT 03/10/2024 3:09 PM CDT us Yung Michel MD LAB BLOOD ORDERABLES Final Result Performing Organization Address City/State/[facility] Co de Phone Number [facility] [address] [address] Department [place] [address] * Comprehensive metabolic panel (03/10/2024 11:12 AM CDT) Sodium 138 135 - 145 mmol/L Potassium, pl 4.8 3.3 - 4.9 mmol/L [facility] Chloride 103 97 - 110 mmol/L [facility] CO2 24 22 - 32 mmol/L [facility] Anion gap 11 2 - 15 mmol/L [facility] BUN 21 6 - 25 mg/dL [facility] Creatinine 0.92 0.60 - 1.10 mg/dL [facility] Glucose 88 70 - 199 mg/dL [facility] Comment: Interpretive Data Fasting glucose >/= 126 mg/dl is diagnostic for diabetes. ?? Fasting is defined as no caloric intake for at least 8 hours. Fasting glucose between 100 mg/dl to 125 mg/dl is diagnostic of prediabetes. In a patient with classic symptoms of hyperglycemia or hyperglycemic crisis, a random glucose >/= 200 mg/dl is diagnostic for diabetes. In the absence of unequivocal hyperglycemia, results should be confirmed by repeat testing. The classification and Diagnosis of Diabetes Diabetes Care 2021; 46: S19-S40. Current interpretive data was last revised 2022. Calcium 9.3 8.5 - 10.3 mg/dL [facility] Bilirubin, total 0.3 0.1 - 1.2 mg/dL [facility] Protein, pl 7.4 6.5 - 8.5 g/dL [facility] Albumin 4.1 3.5 - 5.0 g/dL [facility] Alk phos 112 40 - 130 Units/L [facility] ALT 26 7 - 45 Units/L [facility] AST 31 10 - 45 Units/L [facility] Blood 03/10/2024 11:1 2 AM CDT 03/10/2024 3:09 PM CDT us Yung Michel MD LAB [place]LO[place] [id number] [address] Department [place] [address] * Lipid panel (03/10/2024 11:12 AM CDT) Cholesterol 189 30 - 199 mg/dL Comment: Interpretive Data Ages < or = 19 years ??Acceptable: ? <170 mg/dL ??Borderline high: ??170-199 mg/dL ??High: ? >or= 200 mg/dL Ages > or = 20 years ??Desirable: ?<200 mg/dL ??Borderline high: ??200-239 mg/dL ??High: ? >or= 240 mg/dL Literature References: 1. Expert Panel on Integrated Guidelines for Cardiovascular Health and Risk Reduction in Children and Adolescents. Pediatrics 2011;128:S213 2. NCEP Expert Panel. Circulation 2004;110:227 Current Interpretive Data was last revised on 2018. Triglycerides 119 <=149 mg/dL [facility] Comment: Interpretive Data Ages < or = 9 years ??Acceptable: ? <75 mg/dL ??Borderline high: ??75-99 mg/dL ??High: ? >or= 100 mg/dL Ages 10 to 20 years ??Acceptable: ? <90 mg/dL ??Borderline high: ??90-129 mg/dL ??High: ? >or= 130 mg/dL Ages > or = 20 years ??Desirable: ?<150 mg/dL ??Borderline high: ??150-199 mg/dL ??High: ? 200-499 mg/dL ?Very high: ?? >or= 499 mg/dL Literature References: 1. Expert Panel on Integrated Guidelines for Cardiovascular Health and Risk Reduction in Children and Adolescents. Pediatrics 2011;128:S213 2. NCEP Expert Panel. Circulation 2004;110:227 Current Interpretive Data was last revised on 2018. HDL 64 >=40 mg/dL [facility] Comment: Interpretive Data Ages < or = 19 years ??Acceptable: ? >45 mg/dL ??Borderline low: ?? 40-45 mg/dL ??Low: ? <40 mg/dL Ages > or = 20 years ??Desirable: ?>or= 60 mg/dL ??Low: ? <40 mg/dL Literature References: 1. Expert Panel on Integrated Guidelines for Cardiovascular Health and Risk Reduction in Children and Adolescents. Pediatrics 2011;128:S213 2. NCEP Expert Panel. Circulation 2004;110:227 Current Interpretive Data was last revised on 2018. LDL, calculated 101 <=129 mg/dL [facility] Comment: Interpretive Data Ages < or = 19 years ??Acceptable: ? <110 mg/dL ??Borderline high: ??110-129 mg/dL ??High: ?>or= 130 mg/dL Ages > or = 20 years ??Optimal: ? <100 mg/dL ??Near optimal: ?100-129 mg/dL ??Borderline high: ?? 130-159 mg/dL ??High: ?>160 mg/dL Literature References: 1. Expert Panel on Integrated Guidelines for Cardiovascular Health and Risk Reduction in Children and Adolescents. Pediatrics 2011;128:S213 2. NCEP Expert Panel. Circulation 2004;110:227 Current Interpretive Data was last revised on 2018. Non-HDL Cholesterol 125 mg/dL [facility]ATA Comment: Interpretive Data Ages < or = 19 years ??Acceptable: ?<120 mg/dL ??Borderline high: ??120-144 mg/dL ??High: ?>145 mg/dL Ages > or = 20 years ??When triglycerides are >200 mg/dL, Non-HDL cholesterol is a secondary target of ? therapy with treatment goals that are 30 mg/dL greater than the LDL cholesterol target. ? Literature References: 1. Expert Panel on Integrated Guidelines for Cardiovascular Health and Risk Reduction in Children and Adolescents. Pediatrics 2011;128:S213 2. NCEP Expert Panel. Circulation 2004;110:227 Current Interpretive Data was last revised on 2018. Chol/HDL ratio 3 [facility] Blood 03/10/2024 11:1 2 AM CDT 03/10/2024 3:09 PM CDT Yung Michel MD LAB BLOOD ORDERABLES Final Result Performing Organization Address [facility] de Phone Number [facility] [phone] [address] [place] [address] * Thyroid Function Freeborn (03/10/2024 11:12 AM CDT) TSH 2.33 0.30 - 4.20 mcIUnit/mL Blood 03/10/2024 11:1 2 AM CDT 03/10/2024 3:09 PM CDT Yung Michel MD LAB BLOOD ORDERABLES Final Result Performing Organization Address [facility] Co de Phone Number [facility]ARD [phone] [address] [place] [address] * Hepatitis B Surface Antigen Blood (03/10/2024 11:12 AM CDT) HepBsAg Nonreactive Nonreactive Blood 03/10/2024 11:1 2 AM CDT 03/10/2024 3:09 PM CDT Yung Michel MD LAB MICROBIOLOGY - GENERAL ORDERABLES Final Result Performing Organization Address [facility] Co de Phone Number [facility]ATA [phone] [address] Department [place] [address] * Hepatitis B surface antibody (immune status) Blood (03/10/2024 11:12 AM CDT) HBsAb (immune status) Nonreactive Comment: Interpretive Data Nonreactive: This result is consistent with a lack of immunity to Hepatitis B Virus when used in the setting of routine screening. Equivocal: The immune status of the individual should be further assessed, if appropriate, after consideration of clinical status, risk factors, and additional diagnostic information. Reactive: This result is consistent with immunity to Hepatitis B Virus when used in the setting of routine screening. Current interpretive data was last revised on 19. Blood 03/10/2024 11:1 2 AM CDT 03/10/2024 3:09 PM CDT Yung Michel MD LAB MICROBIOLOGY - GENERAL ORDERABLES Final Result Performing Organization Address [facility] Co de Phone Number [facility]ATA [phone] [address] Department [place] [place] [address] * Hepatitis B core antibody, total Blood (03/10/2024 11:12 AM CDT) Hep B core IgG/IgM Nonreactive Nonreactive Comment:Testing performed by : [facility], [address] [facility], [place]., [address] Blood 03/10/2024 11:1 2 AM CDT 03/10/2024 4:50 PM CDT us Yung Michel MD LAB MICROBIOLOGY - GENERAL ORDERABLES Final Result Performing Organization Address City/State/ZIP [facility] Phone Number RICHARD [phone] [address] Department [place] [address] documented in this encounter Visit Diagnoses Diagnosis Need for hepatitis B screening test Screening for thyroid disorder Lipid screening Screening for lipoid disorders On medication for venous thromboembolism (VTE) documented in this encounter Care Teams Rug Measurer Relationship Specialty Start Date End Date Yung Michel MD [address] [place] [address] PCP - General Family Medicine 09/24/21 documented as of this encounter
--- OUTSIDE RECORDS SUMMARY | 2024-08-04 16:38 | XMS_ITS | Encounter Summary ---
Author Organization [facility] Healthcare Address [address] [place] [address] Care Team Providers Care Trapeze Performer Name Role Phone Yung Michel MD Primary Care Provider [phone]- [phone] Encounter Details Date Type Department Care Team (Late st Contact Info) Description 03/10/2024 11:15 AM CDT Lab [facility] Medical Group Outpatient Lab at [address] [address] Screening examination for poliomyelitis (Primary Dx); Screening for lipoid disorders; Thrombotic infarction; Screening for thyroid disorder Social History Tobacco Use Types Packs/Day Years [...] and Family Not on file 09/27/2021 Attends Confucianism Services Not on file 09/27 Active Member [...] staff should administer the PHQ-9) 0 03/10/2024 [facility] of Occupat ional Health - Occupational Stress [...] place to sleep or slept in a detention (including now)? 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
--- OUTSIDE RECORDS SUMMARY | 2024-08-04 16:38 | XMS_ITS | Encounter Summary ---
Author Organization [facility] Healthcare Address [address] [place] [address] Care Team Providers Care Rules Examiner Name Role Phone Yung Michel MD Primary Care Provider [phone]- [phone] Reason for Visit * Reason Onset Date Comments eye redness 07/06/2023 Encounter Details Date Type Department Care Team (Late st Contact Info) Description 07/06/2023 Nurse Triage [facility] Medical Group Primary Care at [address] [address] Sarai Borges RN Social History Tobacco Use Types Packs/Day Years [...] and Family Not on file 09/27/2021 Attends Jewish Services Not on file 09/27 Active Member [...] staff should administer the PHQ-9) 0 09/29/2022 [facility] [place] of Occupat ional Health - Occupational Stress [...] place to sleep or slept in a assisted (including now)? No 09/27/2021 Education Answer Date Recorded What is the highest level of school you have completed or the highest degree you have received? 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 Denies fever or blurred vision. States she has mucous and crusting on her left eye and her left eye is tearing. States they had new hayley put in their house and may have gotten some dust in her eyes. There is redness of sclera. States the edge of her eyelid is sore and there is itching. She used some OTC eye drops. Rates the pain as moderate. hospitality intern Protocol Recommends: Go to Office Now. No appt available in office. Advised pt to go to . Care Advice Given: Irrigate with cool water, apply cool compress to eyes, avoid rubbing eyes Educated pt to call back if worsens, new symptoms develop or has further questions/concerns. Reason for Disposition MODERATE eye pain (e.g., interferes with normal activities) Protocols used: Eye - Pus or [id number] DESIGNER * Telephone Encounter - Marlena Cope RN - 07/06/2023 1:18 PM GAME DESIGNER Regarding: Eye lids pink and swollen, possible pink eye ----- Message from Joyce Nagel sent at 07/06/2023 9:12 AM GAME DESIGNER ----- Symptom Based Call Chief Complaint(s): Eye lids pink and swollen,drainage, possible pink eye Duration: Thursday What type of symptom(s) is the patient experiencing? Non-Emergent. Is this a new or reoccurring symptom(s)? New What have you tried to help your symptom(s)? Over the counter eye drops Why was appointment not scheduled? Appointment availability did not meet the patient's need. Additional Comments: no available same day appointments. has encounter as well for same symptoms Does message need to be routed? Yes-Action Needed DESIGNER documented in this encounter Plan of Treatment Not on file documented as of this encounter Visit Diagnoses Not on filedocumented in this encounter Care Teams Rules Examiner Relationship Specialty Start Date End Date Yung Michel MD [address] [place] [address] PCP - General Family Medicine 09/24/21 documented as of this encounter
--- OUTSIDE RECORDS SUMMARY | 2024-08-04 16:38 | XMS_ITS | Encounter Summary ---
Author Organization [facility] Address [address] [place] [address] Care Team Providers Care Occupational Hygienist Name Role Phone Yung Michel MD Primary Care Provider [phone] Reason for Referral * Diagnostic Imaging (Routine) - Closed Specialty Diagnoses / Procedures Referred By Shakila sharpe Referred To Contact Diagnoses Osteopenia of both hips Procedures Dexa Axial Skeleton Bone Density 1 or 2 Site Yung Michel MD [address] [facility] [address] [place] [address] Phone: tel: fax: [address] [phone] Referral ID Status Reason Start Date Expiration Date Visits Re quested Visits Authorized [id number] Closed 03/10/2024 04/09/2025 1 1 * Diagnostic Imaging (Routine) - Closed Specialty Diagnoses / Procedures Referred By Shakila sharpe Referred To Contact Diagnoses Encounter for screening mammogram for malignant neoplasm of breast Procedures SCREENING MAMMOGRAM BILATERAL W MARY Yung Michel MD [address] [facility] [address] [place] [address] Phone: tel: fax: [address] [phone] Referral ID Status Reason Start Date Expiration Date Visits Re quested Visits Authorized [id number] Closed 03/10/2024 04/09/2025 1 1 Reason for Visit * Reason Comments Medicare Annual Wellness Visit Joe sharpe Medicare wellness exam Encounter Details Date Type Department Care Team (Late st Contact Info) Description 03/10/2024 10:30 AM CDT Office Visit [facility] Primary Care at [address] [phone] Yung Michel MD [address] [place] [address] [address] [place], [place] [id number] Encounter for Medicare annual wellness exam (Primary Dx); Osteopenia of both hips; Lipid screening; Screening for thyroid disorder; Colon cancer screening; On medication for venous thromboembolism (VTE); Need for hepatitis B screening test; Encounter for screening mammogram for malignant neoplasm of breast Social History Tobacco Use Types Packs/Day Years [...] and Family Not on file 09/27/2021 Attends Worship Services Not on file 09/27 Active Member [...] staff should administer the PHQ-9) 0 03/10/2024 [facility] [place] of Occupat ional Health - Occupational Stress [...] place to sleep or slept in a nursing home (including now)? 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 My medical assistants and I are thankful you have trusted us with your care, and hope that you received EXCELLENT care today! Please do not hesitate to call if you have any questions or concerns at [phone]. You may receive a phone call, text, MYCHART message, or e-mail asking about your care today. We would love to hear your feedback on how EXCELLENT your care wastoday! Wishing you better health, always. Dr. Michel * Attachments The following attachments cannot be sent through Care Everywhere. * DASH Eating Plan (Spinner Iron) (Vincentian) documented in this encounter Progress Notes * Yung Michel MD - 03/10/2024 10:30 AM CDT MEDICARE ANNUAL WELLNESS VISIT Tamara Lion Medicare Health Risk Assessment Basic Information In general, would you say your health is: Good Do you have an advance directive, such as a living will or durable power of state attorney?: Yes Do you have to strain or struggle to hear/understand conversations?: (!) Yes Have you experienced any of the following problems currently or recently? Eating: No Grooming: No Bathing: No Walking: No Using the toilet: No Memory problems: No Difficulty speaking: No Dressing: No Balance: No Pain: No Sexual Health: No Fatigue: No Depression: No Life Satisfaction: No Stress: No Anger: No Loneliness or Social Isolation: No Suicide: No Have you experienced any of the following problems currently or recently? Laundry and/or housekeeping: No Handling money: No Shopping: No Using the Phone: No Food preparation: No Transportation: No Taking and/or getting your own medications: No Do you use prescription drugs that are not prescribed for you?: No Problem List, Past Medical and Surgical History: Patient Active Problem List Diagnosis Colon cancer screening Encounter for Medicare annual wellness exam Alopecia On medication for venous thromboembolism (VTE) Past Medical History: Diagnosis Date Hx of blood clots 08/01/2021 right leg Pneumonia Past Surgical History: Procedure Laterality Date DILATION AND CURETTAGE OF UTERUS Family History: Family History Problem Relation Age of Onset Other (heart tumor) Mother Arthritis Father Other (farmers lung) Father No Known Problems Brother Other (polysubstance abuse) Brother from overdose No Known Problems Brother accidental electrocution Uterine cancer Maternal Grandmother Heart attack Maternal Grandfather Stomach cancer Paternal Grandmother No Known Problems Paternal Grandfather Social History: Social History Tobacco Use Smoking status: Never Smokeless tobacco: Never Substance and Sexual Activity Drug use: Never Sexual activity: Not Currently Partners: Male Alcohol Use: Not At Risk (09/29/2022) AUDIT-C Frequency of Alcohol Consumption: Monthly or less Average Number of Drinks: 1 or 2 Frequency of Binge Drinking: Never Allergies: No Known Allergies Medications: Current Outpatient Medications: aspirin 81 mg enteric coated tablet, Take 1 tablet (81 mg total) by mouth daily, Disp: , Rfl: multivitamin capsule, Take 1 capsule by mouth daily, Disp: , Rfl: Depression Screen: PHQ Screening Over the past 2 weeks, how often have you been bothered by any of the following problems? Little Interest or Pleasure in Doing Things: Not at all Feeling Down, Depressed, or Hopeless: Not at all PHQ-2 Total Score (If total score is 3 or more points, staff should administer the PHQ-9): 0 STEADI Fall Risk Screening In the past year, patient experienced: One or more falls in the last year: No Has trouble stepping up onto a curb: Yes Advised to use a cane or walker to get around safely: No Often has to cifuentes to the toilet: Yes Feels unsteady when walking: No Has lost some feeling in feet: No Steadies self on furniture while walking at home: No Takes medicine that makes him/her feel lightheaded or more tired than usual: No Worried about falling: No Takes medicine to sleep or improve mood: No Needs to push with hands when rising from a chair: No Often feels sad or depressed: No STEADI Score Total: 2 Vitals: Vitals BP 108/70 (BP Location: Left arm, Patient Position: Sitting) Pulse 76 Temp 36.5 ??C (97.7 ??F) (Temporal) Resp 16 Ht 160 cm (5' 3 ) Wt 77.6 kg (171 lb) SpO2 95% BMI 30.29 kg/m?? Body mass index is 30.29 kg/m??. Exam: Physical Exam Vitals reviewed. Constitutional: General: She is not in acute distress. Appearance: She is obese. She is not ill-appearing. HENT: Head: Normocephalic and atraumatic. Right Ear: Tympanic membrane, ear canal and external ear normal. There is no impacted cerumen. Left Ear: Tympanic membrane, ear canal and external ear normal. There is no impacted cerumen. Nose: Nose normal. Mouth/Throat: Mouth: Mucous membranes are moist. Pharynx: Oropharynx is clear. No oropharyngeal exudate or posterior oropharyngeal erythema. Eyes: General: No scleral icterus. Conjunctiva/sclera: Conjunctivae normal. Pupils: Pupils are equal, round, and reactive to light. Neck: Vascular: No carotid bruit. Cardiovascular: Rate and Rhythm: Normal rate and regular rhythm. Pulmonary: Breath sounds: Rhonchi present. No wheezing or rales. Abdominal: Palpations: Abdomen is soft. Tenderness: There is no abdominal tenderness. Musculoskeletal: Right lower leg: No edema. Left lower leg: No edema. Skin: General: Skin is warm and dry. Neurological: Mental Status: She is alert and oriented to person, place, and time. Mental status is at baseline. Psychiatric: Mood and Affect: Mood normal. Care Team Providers: Patient Care Team: Yung Michel MD as PCP - General (Family Medicine) Primary Pharmacy/DME suppliers: [id number] - [place], [place] - [address] [place] [address] Detection of Cognitive Impairment: The patient does not have cognitive impairment based on direct observation, discussion with patientor family, or review of medical records. Health Maintenance: Health Maintenance Topics with due status: Overdue Topic Date Due Breast Cancer Screening-Mammogram Never done Colon Cancer Screening-Colonoscopy Never done Hepatitis B Screening Never done Zoster Vaccine Never done Pneumococcal vaccine 65+ Never done Fall Risk Assessment 09/29/2023 Depression Screening 09/29/2023 Well Visit 65+ 09/29/2023 Osteoporosis Screening-Bone Density Scan 12/04/2023 Health Maintenance Topics with due status: Not Due Topic Last Completion Date DTaP/Tdap/Td Vaccine 05/13/2016 Influenza Vaccine 05/13/2016 Health Maintenance Topics with due status: Completed Topic Last Completion Date Hepatitis C Screening 09/24/2021 Counseling and Referral of Preventative Services: Lifestyle Recommendations Increase Physical Activity, Reduce Weight, and Improve Diet Advanced Directive Durable Power of Academic Support Specialist: Yes Living Will: Yes Opioid Usage Review Using opioids: no Assessment and Plan: Diagnoses and all orders for this visit: Encounter for Medicare annual wellness exam (Primary) Assessment & Plan: A(n) yearly Medicare Annual Wellness Visit has been performed today. Tamara Lion is not up to date on screening tests. She is in need of DEXA, Breast cancer screening, hepatitis B and C, and Cholesterol screening. She is not up to date on needed preventative vaccinations; She is in need of Pneumonia (Prevnar- 13 or Pneumovax-23) and Zoster. We discussed healthy lifestyle habits, educational material has been given. Medications reviewed, changes documented as per the medical record and discussed with patient along with risks vs benefits. Return in 6 months Osteopenia of both hips - Dexa Axial Skeleton Bone Density 1 or 2 Site; Future Lipid screening - CBC with auto differential; Future - Comprehensive metabolic panel; Future - Lipid panel; Future Screening for thyroid disorder - Thyroid Function Karnes; Future Colon cancer screening Comments: she is yet to send in repeat Cologuard On medication for venous thromboembolism (VTE) - CBC with auto differential; Future Need for hepatitis B screening test - Hepatitis B Surface Antigen Blood; Future - Hepatitis B core antibody, total Blood; Future - Hepatitis B surface antibody (immune status) Blood; Future Encounter for screening mammogram for malignant neoplasm of breast - SCREENING MAMMOGRAM BILATERAL W MARY Patient here for annual Medicare wellness visit and for review of complete medical problem list. All the elements of the plan were completed as outlined by CMS. A copy of the prevention plan was given to the patient. I reviewed Medicare Wellness Questionnaire (other physicians involved in care, depression screen, advanced directives), cognitive/memory, and functional assessment. I reviewed and updated the complete problem list, medication list, family history, and immunization records with the patient. I provided preventive counseling and early detection interventions to the patient through health maintenance update and summary of today's office visit. documented in this encounter Miscellaneous Notes * Assessment & Plan Note - Yung Michel MD - 03/10/2024 10:47 AM CDT Associated Problem(s): Encounter for Medicare annual wellness exam A(n) yearly Medicare Annual Wellness Visit has been performed today. Tamara Lion is not up to date on screening tests. She is in need of DEXA, Breast cancer screening, hepatitis B and C, and Cholesterol screening. She is not up to date on needed preventative vaccinations; She is in need of Pneumonia (Prevnar- 13 or Pneumovax-23) and Zoster. We discussed healthy lifestyle habits, educational material has been given. Medications reviewed, changes documented as per the medical record and discussed with patient along with risks vs benefits. Return in 6 months documented in this encounter Plan of Treatment Scheduled Orders Name Type Priority Associated Diagnoses Orde r Schedule SCREENING MAMMOGRAM BILATERAL W MARY Imaging Schedule Routine, Read Routine (OP Routine) Encounter for screening mammogram for malignant neoplasm of breast Ordered: 03/10/2024 Dexa Axial Skeleton Bone Density 1 or 2 Site Imaging Schedule Routine, Read Routine (OP Routine) Osteopenia of both hips Expected: 03/10/2024, Expires: 03/10/2025 documented as of this encounter Results * Thyroid Function Karnes (03/10/2024 11:12 AM CDT) TSH 2.33 0.30 - 4.20 mcIUnit/mL Blood 03/10/2024 11:1 2 AM CDT 03/10/2024 3:09 PM CDT Result [facility] Yung Michel MD LAB BLOOD ORDERABLES Final Result Performing Organization Address [facility] Co de Phone Number RICHARD [phone] [address] [place] [address] * Hepatitis B core antibody, total Blood (03/10/2024 11:12 AM CDT) Hep B core IgG/IgM Nonreactive Nonreactive Comment:Testing performed by : [facility], [address] [facility], [place]., [address] Blood 03/10/2024 11:1 2 AM CDT 03/10/2024 4:50 PM CDT Result [facility] Yung Michel MD LAB MICROBIOLOGY - GENERAL ORDERABLES Final Result Performing Organization Address [facility] Co de Phone Number [facility] [address] [address] [place] [address] * Hepatitis B surface antibody (immune status) [...] 2 AM CDT 03/10/2024 3:09 PM CDT Result [facility] Yung Michel MD LAB MICROBIOLOGY - GENERAL ORDERABLES Final Result Performing Organization Address City/[facility] Co mn Phone Number RICHARD [phone] [facility] Department [place] [address] * Lipid panel (03/10/2024 11:12 AM CDT) [...] revised on 2018. Triglycerides 119 <=149 mg/dL RICHARD ZAPATA Comment: Interpretive Data Ages [...] on 2018. HDL 64 >=40 mg/dL RICHARD Comment: Interpretive Data Ages < [...] on 2018. Non-HDL Cholesterol 125 mg/dL RICHARD Comment: Interpretive Data Ages < [...] last revised on 2018. Chol/HDL ratio 3 [facility] Blood 03/10/2024 11:1 2 AM CDT 03/10/2024 3:09 PM CDT Yung Michel MD LAB BLOOD ORDERABLES Final Result BANNERNER [address] [address] Department [place] [address] * Comprehensive metabolic panel (03/10/2024 11:12 AM CDT) Sodium 138 135 - 145 mmol/L Potassium, pl 4.8 3.3 - 4.9 mmol/L [facility] Chloride 103 97 - 110 mmol/L [facility] CO2 24 22 - 32 mmol/L [facility] Anion gap 11 2 - 15 mmol/L [facility] BUN 21 6 - 25 mg/dL [facility] Creatinine 0.92 0.60 - 1.10 mg/dL [facility] Glucose 88 70 - 199 mg/dL [facility] Comment: Interpretive Data Fasting glucose >/= 126 [...] BLOOD ORDERABLES Final Result Performing Organization Address City/[facility] Co de Phone Number RICHARD ZAPATA [phone] [address] [place] [address] * (ABNORMAL) CBC with auto differential (03/10/2024 11:12 AM CDT) WBC 8.0 3.8 - 9.9 K/cumm Hgb 13.1 11.9 - 15.5 g/dL [facility] CH Hct 41.3 35.6 - 45.5 % [facility] Plt 210 150 - 400 K/cumm [facility] MPV 11.5 9.1 - 12.3 fL [facility] RBC 4.30 3.90 - 5.20 M/cumm [facility] MCV 96.0 81.3 - 96.4 fL [facility] MCH 30.5 27.1 - 33.3 pg [facility]ER MCHC 31.7(L) 32.3 - 35.7 g/dL [facility] RDW CV 13.2 11.1 - 14.9 % [facility] RDW SD 46.5 35.7 - 48.1 fL [facility] NRBC abs 0.00 0.00 - 0.01 K/cumm [facility] Blood 03/10/2024 11:1 2 AM CDT 03/10/2024 3:09 PM CDT us Yung Michel MD LAB BLOOD ORDERABLES Final Result Performing Organization Address City/[facility]/ZIP Co de Phone Number RICHARD ZAPATA [phone] [address] [facility] Risk Ident [place], [place] [id number] * Hepatitis B Surface Antigen Blood (03/10/2024 11:12 AM CDT) Pathologist [facility] HepBsAg Nonreactive Nonreactive Blood 03/10/2024 11:1 2 AM CDT 03/10/2024 3:09 PM CDT Yung Michel MD LAB MICROBIOLOGY - GENERAL ORDERABLES Final Result Performing Organization Address City/State/ZIP Co mn Phone Number RICHARD [phone] [address] Department [place] [address] documented in this encounter Visit Diagnoses Diagnosis Encounter for Medicare annual wellness exam- Primary Osteopenia of both hips Lipid screening Screening for lipoid disorders Screening for thyroid disorder Colon cancer screening Special screening for malignant neoplasms, colon On medication for venous thromboembolism (VTE) Need for hepatitis B screening test Encounter for screening mammogram for malignant neoplasm of breast documented in this encounter Care Teams Occupational Hygienist Relationship Specialty Start Date End Date Yung Michel MD [address] [place] [address] PCP - General Family Medicine 09/24/21 documented as of this encounter
--- OUTSIDE RECORDS SUMMARY | 2024-08-04 16:38 | XMS_ITS | Encounter Summary ---
Author Organization [facility] Healthcare Address [address] [place] [address] Care Team Providers Care Chief Security And Safety Officer Name Role Phone Yung Michel MD Primary Care Provider [phone]- [phone] Reason for Visit * Reason Comments [place] [facility] Redness x 1 day with some matting of green mucus in corner of left eye. Left eye a little swollen. Encounter Details Date Type Department Care Team (Latest Contact Info) Description 07/06/2023 6:30 PM PAYROLL TECHNICIAN Office Visit [facility] Convenient Care at [address] [address] Jennifer Mills, SHRUTI [address] [place] [address] [address] [place] [address] Other mucopurulent conjunctivitis of left eye (Primary Dx) Social History Tobacco Use Types Packs/Day Years [...] and Family Not on file 09/27/2021 Attends Spiritism Services Not on file 09/27 Active Member [...] staff should administer the PHQ-9) 0 09/29/2022 [facility] [place] of Occupat ional Health - Occupational Stress [...] place to sleep or slept in a fdc (including now)? No 09/27/2021 Education Answer Date Recorded What is the highest level of school you have completed or the highest degree you have received? 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 N ot on file documented as of this encounter Last Filed Vital Signs Vital Sign Reading Time Taken Comments Blood Pressure 120/82 07/06/2023 6:22 PM PAYROLL TECHNICIAN Pulse 84 07/06/2023 6:22 PM PAYROLL TECHNICIAN Temperature 36.6 ??C (97.8 ??F) 07/06/2023 6:22 PM CS T Respiratory Rate 16 07/06/2023 6:22 PM PAYROLL TECHNICIAN Oxygen Saturation 97% 07/06/2023 6:22 PM PAYROLL TECHNICIAN Inhaled Oxygen Concentration - - Weight 78.9 kg (174 lb) 07/06/2023 6:22 PM PAYROLL TECHNICIAN Height - - Body Mass Index 30.82 09/29/2022 10:04 AM PAYROLL TECHNICIAN documented in this encounter Patient Instructions * Patient Instructions* Jennifer Mills NP - 07/06/2023 6:30 PM PAYROLL TECHNICIAN If you have no improvement or worsening of your symptoms, please follow up with your Primary Care Provider, Convenient Care and or Emergency Room. I strive to provide you with EXCELLENT service. You may receive a survey after your visit today. If you cannot rate your experience as EXCELLENT, please let us know how we can improve and better meet your needs. Thank you for choosing [facility]! It was my pleasure to see you today, I hope you feel better soon! Jennifer Mills CRANBERRY SORTER OLL TECHNICIAN * Attachments The following attachments cannot be sent through Care Everywhere. * Conjunctivitis ([place]) (Tamazight) documented in this encounter Ordered Prescriptions Prescription Sig Dispense Quantity Refills Last Filled Start Date End Date ofloxacin (OCUFLOX) 0.3 % ophthalmic solutionIndications :Other mucopurulent conjunctivitis of left eye Administer 1 drop into both eyes 4 (four) times a day for 7 days 1.4 mL 07/06/2023 documented in this encounter Progress Notes * Jennifer Mills NP - 07/06/2023 6:30 PM CST Images from the original note were not included. Subjective/Objective Patient ID: Tamara Lion is a 72 y.o. female. Chief Complaint [place] [facility] (Redness x 1 day with some matting of green mucus in corner of left eye. Left eye a littleswollen. ) Pt presents to [facility] Eye Problem The left eye is affected. This is a new problem. The current episode started yesterday. The problemoccurs daily. The problem has been gradually worsening. There was no injury mechanism. There is Known exposure () to pink eye. She Does not wear contacts. Associated symptoms include an eye discharge and eye redness. Pertinent negatives include no fever, itching or photophobia. She has triednothing for the symptoms. Review of Systems Constitutional: Negative for chills, diaphoresis, fatigue and fever. HENT: Negative for congestion, ear pain, rhinorrhea, sinus pressure, sinus pain and sore throat. Eyes: Positive for discharge and redness. Negative for photophobia, pain, itching and visual disturbance. Respiratory: Negative for cough and shortness of breath. Cardiovascular: Negative for chest pain. Skin: Negative for rash. Neurological: Negative for dizziness and headaches. Physical Exam Vitals and nursing note reviewed. Constitutional: General: She is not in acute distress. Appearance: Normal appearance. She is not ill-appearing. Eyes: General: Lids are normal. Lids are everted, no foreign bodies appreciated. Vision grossly intact. Gaze aligned appropriately. Extraocular Movements: Extraocular movements intact. Conjunctiva/sclera: Right eye: Right conjunctiva is not injected. No exudate. Left eye: Left conjunctiva is injected. Exudate present. Pupils: Pupils are equal, round, and reactive to light. Cardiovascular: Rate and Rhythm: Normal rate and regular rhythm. Pulses: Normal pulses. Heart sounds: Normal heart sounds. Pulmonary: Effort: Pulmonary effort is normal. Breath sounds: Normal breath sounds. Skin: General: Skin is warm and dry. Capillary Refill: Capillary refill takes less than 2 seconds. Neurological: Mental Status: She is alert and oriented to person, place, and time. Vitals: 07/06/23 1822 BP: 120/82 BP Location: Left arm Patient Position: Sitting Pulse: 84 Resp: 16 Temp: 36.6 ??C (97.8 ??F) TempSrc: Oral SpO2: 97% Weight: 78.9 kg (174 lb) No results found. Past Medical History: Diagnosis Date Hx of blood clots 08/01/2021 right leg Pneumonia Current Outpatient Medications: aspirin 81 mg enteric coated tablet, Take 1 tablet (81 mg total) by mouth daily, Disp: , Rfl: multivitamin capsule, Take 1 capsule by mouth daily, Disp: , Rfl: ofloxacin (OCUFLOX) 0.3 % ophthalmic solution, Administer 1 drop into both eyes 4 (four) times a day for 7 days, Disp: 1.4 mL, Rfl: 0 No Known Allergies Social History Tobacco Use Smoking status: Never Smokeless tobacco: Never Substance and Sexual Activity Drug use: Never Sexual activity: Not Currently Partners: Male Alcohol Use: Not At Risk (09/29/2022) AUDIT-C Frequency of Alcohol Consumption: Monthly or less Average Number of Drinks: 1 or 2 Frequency of Binge Drinking: Never Past Surgical History: Procedure Laterality Date DILATION AND CURETTAGE OF UTERUS Assessment/Plan Diagnoses and all orders for this visit: Other mucopurulent conjunctivitis of left eye (Primary) - ofloxacin (OCUFLOX) 0.3 % ophthalmic solution; Administer 1 drop into both eyes 4 (four) times a day for 7 days Patient Education: Bacterial Conjunctivitis is contagious until you have been on antibiotic eye drops for 24 hours. -Please wash your hands frequently and avoid touching and rubbing your eye(s) -Discard any eye makeup that you have been using. -If you wear contacts please disposed of your current ones and only open a new pair when your eye returns to normal. -Cool compresses as needed for irritation. -You must be on antibiotic eye drops for at least 24 hours before returning to work or school ??FOLLOW-UP: If your eye(s) are not improving or worsening, or if you develop vision change or eye pain, over the next 24-48 hours you need to see an eye doctor IMMEDIATELY. Disposition Treatment plan including expectations, follow up, and return precautions discussed with patient/parent, verbalizes understanding. Medication dosage, use, and potential adverse reactions discussed with patient/parent. Advised to follow up with PCP if symptoms do not resolve as expected or sooner if condition worsens. Signs/symptoms warranting ER evaluation reviewed. Patient and/or guardian was given an opportunity to ask questions, questions answered. Jennifer Mills NP This office note has been partially dictated using [employer] software, and as a result portions of the record may have been created with this software. Occasional wrong-word or '[id number]' substitutions may have occurred due to the inherent limitations of voice recognition software. Read the chartcarefully and recognize, using context, where substitutions have occurred. OLL TECHNICIAN documented in this encounter Plan of Treatment Not on file documented as of this encounter Visit Diagnoses Diagnosis Other mucopurulent conjunctivitis of left eye- Primary documented in this encounter Care Teams Chief Security And Safety Officer Relationship Specialty Start Date End Date Yung Michel MD [address] [place] [address] PCP - General Family Medicine 09/24/21 documented as of this encounter
--- OUTSIDE RECORDS SUMMARY | 2024-08-04 16:38 | XMS_ITS | Referral Summary ---
Author Organization [facility] [address] Address [facility] [place] [address] Care Team Providers Care Financial Service Rep Name Role Phone Yung Michel MD Primary Care Provider [phone]- [phone] Allergies No known active allergies Medications multivitamin [...] (medicare doesn't allow savings cards from the activity aide, however). GoodRx was not much of a [...] months Assessment & Plan (09/29/2022 10:33 AM INDUSTRIAL ECONOMIST): A(n) yearly Medicare Annual Wellness Visit has [...] year Assessment & Plan (09/27/2021 3:55 PM INDUSTRIAL ECONOMIST): A initial Medicare Annual Wellness Visit has [...] of that mineral DEXA, mammogram ordered for [place] Colonoscopy ordered () with Dr. Chawla Colon cancer screening 09/24/2021 Overview (09/24/2021): Added automatically from request for surgery [id number] Immunizations Name Administration Dates Next Due Influenza, Trivalent, High D ose, Split, Preservative Free, Intramuscular 05/13/2016 Influenza, Unspecified 09/29/2022(Deferr ed: Patient Refused),12/04/2021(Deferred: Patient Refused),09/24/2021(Deferred: Patient Refused),09/24/2021(Deferred: Patient Refused),08/03/2021(Deferred: Patient Refused),10/02/2020(Deferred: Patient Refused),08/03/2020(Deferred: Patient Refused) Pneumococcal Conjugate PCV 13 12/04/2021 (Deferred: Patient Refused),09/24/2021(Deferred: Patient Refused) Tdap 05/13/2016 Social History Tobacco Use Types Packs/Day Years [...] and Family Not on file 09/27/2021 Attends Yazdanism Services Not on file 09/27 Active Member [...] staff should administer the PHQ-9) 0 03/10/2024 [facility] [place] of Occupat ional Health - Occupational Stress [...] in a assisted (including now)? 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 F ??with given history of screening. Shingle Packer/Model: ?? Lovli SL (S/N [id number]) CLINICAL INFORMATION: Current height: ?? 63 ??inches [...] PM T: ??12/03/2021 9:27 PM Report ID: [id number] Reading Location: ??[id number] Procedure Note Raul Conklin MD - 12/03/2021 EXAM DESCRIPTION: DEXA AXIAL SKELETON BONE DENSITY 1 OR MORE SITES REASON FOR STUDY: 71 y/o year old F with given history ofscreening. Shingle Packer/Model: [employer] (S/N [id number]) CLINICAL INFORMATION: Current height: 63 inches Maximum [...] Raul Conklin M.D. MF: SHERIE Report ID: [id number] Reading Location: [place] [address] us Yung Michel MD IM DXA PROCEDURES Final Re sult * Hepatitis C antibody (09/24/2021 3:27 PM INDUSTRIAL ECONOMIST) Hep C Ab Nonreactive Nonreactive R[facility]ARD ZAPATA Comment: Interpretive Data Nonreactive: Antibodies to HCV [...] revised on 2019. Blood 09/24/2021 3:27 PM INDUSTRIAL ECONOMIST 09/24/2021 9:09 PM INDUSTRIAL ECONOMIST Yung Michel MD LAB MICROBIOLOGY - GENERAL [place] [id number] [address] Department [place] [address] from Last 3 Months or Most Recently Relevant to Health Maintenance Insurance A[employer] [facility] [place]IC[place] [id number] [place] [place] [id number] MEDICARE AETNA SENIOR SUPPLEMENT Care Teams Financial Service Rep Relationship Specialty Start Date End Date Yung Michel MD [address] [place] [address] PCP - General Family Medicine 09/24/21
--- OUTSIDE RECORDS SUMMARY | 2024-08-04 16:39 | XMS_ITS | Encounter Summary ---
Author Organization [facility] Healthcare Address [address] [place] [address] Care Team Providers Care Pear Picker Name Role Phone Yung Michel MD Primary Care Provider [phone]- [phone] Encounter Details Date Type Department Care Team (Late st Contact Info) Description 10/10/2022 Orders Only [facility] for Wound Care and Hyperbaric Medicine [address] [place] [address] Yung Michel MD [address] [address] Screen for colon cancer (Primary Dx) Social History Tobacco Use Types [...] and Family Not on file 09/27/2021 Attends [employer] Services Not on file 09/27 Active Member [...] staff should administer the PHQ-9) 0 09/29/2022 [facility] [place] of Occupat ional Health - Occupational Stress [...] place to sleep or slept in a residential (including now)? No 09/27/2021 Education Answer Date Recorded What is the highest level of school you have completed or the highest degree you have received? 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
--- OUTSIDE RECORDS SUMMARY | 2024-08-04 16:39 | XMS_ITS | Encounter Summary ---
Author Organization [facility] Address [address] [address] Care Team Providers Care Supervising Editor Trailer Name Role Phone Yung Michel MD Primary Care Provider [phone] Encounter Details Date Type Department Care Team (Late st Contact Info) Description 09/30/2022 Telephone [facility] Primary Care at [address] [address] Nisha Hauser MA Social History [...] and Family Not on file 09/27/2021 Attends Muslim Services Not on file 09/27 Active Member [...] staff should administer the PHQ-9) 0 09/29/2022 [facility] of Occupat ional Health - Occupational Stress [...] health care facility (including now)? No 09/27/2021 Education Answer Date Recorded What is the highest level of school you have completed or the highest degree you have received? 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 Please relay ST REPRESENTATIVE documented in this encounter Plan of Treatment Not on file documented as of this encounter Visit Diagnoses Not on filedocumented in this encounter Care Teams Supervising Editor Trailer Relationship Specialty [place] [address] [place] [address] PCP - General Family Medicine 09/24/21 documented as of this encounter
--- OUTSIDE RECORDS SUMMARY | 2024-08-04 16:40 | XMS_ITS | Encounter Summary ---
Author Organization [facility] Address [address] [address] Care Team Providers Care Commercial Specialist Name Role Phone Yung Michel MD Primary Care Provider [phone]- [phone] Encounter Details Date Type Department Care Team (Late st Contact Info) Description 01/06/2022 Telephone [facility] Primary Care at [address] [address] Yung Michel MD [address] [place] [address] [address] [place] [address] Social History Tobacco Use Types Packs/Day Years [...] and Family Not on file 09/27/2021 Attends Congregation Services Not on file 09/27 Active Member of Clubs or Organizations Not on f ile 09/27/2021 Attends Club or Organization Meetings Not on theo e 09/27/2021 Are you , , di vorced, , never , or living with a partner? 09/27/2021 AUDIT-C Answer Date Recorded Q1: How often do you have a drink containing alc ohol? Never 09/24/2021 Average Number of Drinks Not on file 022 Q3: How often do you have si x or more drinks on one occasion? Never 09/24/2021 Overall Financial Resource Strain (CARDIA) Answe r Date Recorded How hard is it for you to pa y for the very basics like food, housing, medical care, and heating? Not hard at all 09/27/2021 PHQ-2 Answer Date Recorded PHQ-2 Total Score (If total score is 3 or more points, staff should administer the PHQ-9) 0 09/24/2021 [facility] [place] of Occupat ional Health - Occupational Stress [...] place to sleep or slept in a snf (including now)? No 09/27/2021 Education Answer Date Recorded What is the highest level of school you have completed or the highest degree you have received? 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 Pt notified. * Telephone Encounter - Yung Michel MD - 01/07/2022 9:07 AM CDT They may stop it. Written on script just in case. * Telephone Encounter - Romy Mendez - 01/06/2022 9:34 AM CDT Pt called in states she is not using her oxygen anymore and called the company to come black pickler the tank and they said they cannot pick it up without a stop order from the doctor. She states she hasn't used it for about 4 months. Please Advise. documented in this encounter Plan of Treatment Not on file documented as of this encounter Visit Diagnoses Not on filedocumented in this encounter Care Teams Commercial Specialist Relationship Specialty Start Date End Date Yung Michel MD [address] [place] [address] PCP - General Family Medicine 09/24/21 documented as of this encounter
--- OUTSIDE RECORDS SUMMARY | 2024-08-04 16:40 | XMS_ITS | Encounter Summary ---
Author Organization [facility] Address [address] [address] Care Team Providers Care Appeals Referee Name Role Phone Yung iMchel MD Primary Care Provider [phone] [phone] Encounter Details Date Type Department Care Team (Late st Contact Info) Description 09/29/2022 12:30 PM MASSAGE OPERATOR Lab [facility] Outpatient Lab at [address] [address] Encounter for Medicare annual wellness exam Social History Tobacco Use Types Packs/Day Years [...] and Family Not on file 09/27/2021 Attends [employer] Not on file 09/27 Active Member [...] staff should administer the PHQ-9) 0 09/29/2022 [facility] of Occupat ional Health - [...] on file Legal Sex Female 11:24 AM MASSAGE OPERATOR Gender Identity Not on file Sexual Orientation Not on file 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
--- OUTSIDE RECORDS SUMMARY | 2024-08-04 16:40 | XMS_ITS | Encounter Summary ---
Author Organization [facility] Address [address] [address] Care Team Providers Care Crime Prevention Worker Name Role Phone Yung Michel MD Primary Care Provider [phone] Reason for Referral * Diagnostic Imaging (Routine) - Closed Specialty Diagnoses / Procedures Referred By Shakila sharpe Referred To Contact Diagnoses Encounter for screening mammogram for malignant neoplasm of breast Procedures SCREENING MAMMOGRAM BILATERAL Yung Michel MD [address] [place] [address] [address] [place] [address] Phone: tel: fax: External Order Referral ID Status Reason Start Date Expiration Date Visits Re quested Visits Authorized [id number] Closed 09/29/2022 10/29/2023 1 1 UTER NETWORKING INSTRUCTOR ADJUNCT Reason for Visit * Reason Comments Follow-up 6 month f/u Encounter Details Date Type Department Care Team (Late st Contact Info) Description 09/29/2022 9:30 AM COMPUTER NETWORKING INSTRUCTOR ADJUNCT Office Visit [facility] Primary Care at [address] [address] Yung Michel MD [address] [place] [address] [address] [place] [address] Encounter for Medicare annual wellness exam (Primary Dx); VTE (venous thromboembolism); Encounter for screening mammogram for malignant neoplasm of breast; Colon cancer screening; Screening for osteoporosis; Osteopenia of both hips; Lipid screening; Screening for thyroid disorder Social History Tobacco [...] staff should administer the PHQ-9) 0 09/29/2022 [facility] - [...] a skilled nursing (including now)? No 09/27/2021 Education Answer Date Recorded What is the highest level of school you have completed or the highest degree you have received? 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 N ot on file documented as of this encounter Last Filed Vital Signs Vital Sign Reading Time Taken Comments Blood Pressure 130/80 09/29/2022 10:04 AM COMPUTER NETWORKING INSTRUCTOR ADJUNCT Pulse 84 09/29/2022 10:04 AM COMPUTER NETWORKING INSTRUCTOR ADJUNCT Temperature 36 ??C (96.8 ??F) 09/29/2022 10:04 AM COMPUTER NETWORKING INSTRUCTOR ADJUNCT Respiratory Rate 16 09/29/2022 10:04 AM COMPUTER NETWORKING INSTRUCTOR ADJUNCT Oxygen Saturation 96% 09/29/2022 10:04 AM COMPUTER NETWORKING INSTRUCTOR ADJUNCT Inhaled Oxygen Concentration - - Weight 74.4 kg (164 lb) 09/29/2022 10:04 AM COMPUTER NETWORKING INSTRUCTOR ADJUNCT Height 160 cm (5' 3 ) 09/29/2022 10:04 AM COMPUTER NETWORKING INSTRUCTOR ADJUNCT Body Mass Index 29.05 09/29/2022 10:04 AM COMPUTER NETWORKING INSTRUCTOR ADJUNCT documented in this encounter Patient Instructions * Patient Instructions* Yung Michel MD - 09/29/2022 9:30 AM COMPUTER NETWORKING INSTRUCTOR ADJUNCT Labs as ordered Mammogram, Cologuard ordered as well, please try and get done within the month Continuing current medicines Thanks for coming in today! My medical assistants and I are thankful you have trusted us with your care, and hope that you received EXCELLENT care today! Please do not hesitate to call if you have any questions or concerns at [phone]. You may receive a phone call, text, MYCHART message, or e-mail asking about your care today. We would love to hear your feedback on how EXCELLENT your care wastoday! Wishing you better health, always. Dr. Michel UTER NETWORKING INSTRUCTOR ADJUNCT * Attachments The following attachments cannot be sent through Care Everywhere. * DASH Eating Plan (General Information) (Salvadorean) documented in this encounter Progress Notes * Yung Michel MD - 09/29/2022 9:30 AM CST MEDICARE ANNUAL WELLNESS VISIT Tamara Lion Medicare Health Risk Assessment Basic Information In general, would you say your health is: Excellent Do you have an advance directive, such as a living will or durable power of attorney law clerk?: Yes Do you have to strain or struggle to hear/understand conversations?: Yes Have you experienced any of the following problems currently or recently? Eating: No Grooming: No Bathing: No Walking: Yes Using the toilet: No Memory problems: No Difficulty speaking: No Pain: Yes Sexual Health: No Fatigue: Yes Have you experienced any of the following problems currently or recently? Laundry and/or housekeeping: No Handling Money: No Shopping: No Food preparation: No Transportation: No Taking and/or getting your own medications: No Do you use prescription drugs that are not prescribed for you?: No Problem List, Past Medical and Surgical History: Patient Active Problem List Diagnosis ??? Colon cancer screening ??? Encounter for Medicare annual wellness exam ??? Alopecia ??? On medication for venous thromboembolism (VTE) Past Medical History: Diagnosis Date ??? Hx of blood clots 08/01/2021 right leg ??? Pneumonia Past Surgical History: Procedure Laterality Date ??? HYSTERECTOMY 1981 dysmenorrhea Family History: Family History Problem Relation Age of Onset ??? Other (heart tumor) Mother ??? Arthritis Father ??? Other (farmers lung) Father ??? No Known Problems Brother ??? Other (polysubstance abuse) Brother from overdose ??? No Known Problems Brother accidental electrocution ??? Uterine cancer Maternal Grandmother ??? Heart attack Maternal Grandfather ??? Stomach cancer Paternal Grandmother ??? No Known Problems Paternal Grandfather Social History: Social History Tobacco Use ??? Smoking status: Never ??? Smokeless tobacco: Never Substance and Sexual Activity ??? Drug use: Never ??? Sexual activity: Not on file Alcohol Use: Not At Risk ??? Frequency of Alcohol Consumption: Monthly or less ??? Average Number of Drinks: 1 or 2 ??? Frequency of Binge Drinking: Never Allergies: No Known Allergies Medications: Current Outpatient Medications: ??? aspirin 81 mg enteric coated tablet, Take 81 mg by mouth daily, Disp: , Rfl: ??? multivitamin capsule, Take 1 capsule by mouth daily, Disp: , Rfl: Depression Screen: PHQ Screening Over the last 2 weeks, how often have you been bothered by any of the following problems? Little Interest or Pleasure in Doing Things: Not at all Feeling Down, Depressed, or Hopeless: Not at all PHQ-2 Total Score (If total score is 3 or more points, staff should administer the PHQ-9): 0 Over the past 2 weeks, how often have you been bothered by any of the following problems? Little Interest or Pleasure in Doing Things: Not at all Feeling Down, Depressed, or Hopeless: Not at all PHQ-2 Total Score (If total score is 3 or more points, staff should administer the PHQ-9): 0 STEADI Fall Risk Screening Vitals: Vitals BP 130/80 (BP Location: Right arm, Patient Position: Sitting) Pulse 84 Temp 36 ??C (96.8 ??F) (Temporal) Resp 16 Ht 160 cm (5' 3 ) Wt 74.4 kg (164 lb) SpO2 96% BMI 29.05 kg/m?? Body mass index is 29.05 kg/m??. Exam: Physical Exam Vitals reviewed. Constitutional: Appearance: She is well-developed and overweight. HENT: Head: Normocephalic and atraumatic. Right Ear: External ear normal. Left Ear: External ear normal. Eyes: Conjunctiva/sclera: Conjunctivae normal. Pupils: Pupils are equal, round, and reactive to light. Cardiovascular: Rate and Rhythm: Normal rate and regular rhythm. Heart sounds: Normal heart sounds. No murmur heard. No friction rub. No gallop. Pulmonary: Effort: Pulmonary effort is normal. Breath sounds: Normal breath sounds. Abdominal: General: Bowel sounds are normal. Palpations: Abdomen is soft. Tenderness: There is no abdominal tenderness. Musculoskeletal: General: Normal range of motion. Cervical back: Normal range of motion and neck supple. Skin: General: Skin is warm and dry. Capillary Refill: Capillary refill takes less than 2 seconds. Neurological: Mental Status: She is alert and oriented to person, place, and time. Psychiatric: Behavior: Behavior normal. Care Team Providers: Patient Care Team: Yung Michel MD as PCP - General (Family Medicine) Primary Pharmacy/DME suppliers: [id number] [place] [address] [facility] [address] [facility] [id number] Detection of Cognitive Impairment: The patient does not have cognitive impairment based on direct observation, discussion with patientor family, or review of medical records. Health Maintenance: Health Maintenance Topics with due status: Overdue Topic Date Due Breast Cancer Screening-Mammogram Never done Colon Cancer Screening-Colonoscopy Never done Zoster Vaccines Never done Pneumococcal vaccine 65+ Never done Influenza Vaccine 04/03/2022 Health Maintenance Topics with due status: Due On Topic Date Due Fall Risk Assessment 09/24/2022 Depression Screening-PHQ 09/24/2022 Well Visit 65+ 09/24/2022 Health Maintenance Topics with due status: Not Due Topic Last Completion Date DTaP/Tdap/Td Vaccine 05/13/2016 Osteoporosis Screening-Bone Density Scan 12/03/2021 Health Maintenance Topics with due status: Completed Topic Last Completion Date Hepatitis C Screening 09/24/2021 Counseling and Referral of Preventative Services: Lifestyle Recommendations Increase Physical Activity, Reduce Weight, and Improve Diet Advanced Directive Durable Power of Fire Prevention Chief: Yes Living Will: Yes Assessment and Plan: Diagnoses and all orders for this visit: Encounter for Medicare annual wellness exam (Primary) Assessment & Plan: A(n) yearly Medicare Annual Wellness Visit has been performed today. Tamara Lion is not up to date on screening tests. She is in need of Breast cancer screening and Colon cancer screening. She isnot up to date on needed preventative vaccinations; She is in need of Zoster. We discussed healthy l ifestyle habits, educational material has been given. Medications reviewed, changes documented as per the medical record and discussed with patient along with risks vs benefits. Return in 1 year VTE (venous thromboembolism) - CBC with auto differential; Future Encounter for screening mammogram for malignant neoplasm of breast - SCREENING MAMMOGRAM BILATERAL Colon cancer screening - Stool DNA - Cologuard; Future Screening for osteoporosis - Vitamin D 25 hydroxy; Future Osteopenia of both hips - Comprehensive metabolic panel; Future - Vitamin D 25 hydroxy; Future Lipid screening - Lipid panel; Future Screening for thyroid disorder - TSH reflex to free T4; Future Patient here for annual Medicare wellness visit [...] update and summary of today's office visit. UTER NETWORKING INSTRUCTOR ADJUNCT documented in this encounter Miscellaneous Notes * Assessment & Plan Note - Yung Michel MD - 09/29/2022 10:30 AM COMPUTER NETWORKING INSTRUCTOR ADJUNCT Associated Problem(s): Encounter for Medicare annual wellness exam A(n) yearly Medicare Annual Wellness Visit has been performed today. Tamara Lion is not up to date on screening tests. She is in need of Breast cancer screening and Colon cancer screening. She isnot up to date on needed preventative vaccinations; She is in need of Zoster. We discussed healthy l ifestyle habits, educational material has been given. Medications reviewed, changes documented as per the medical record and discussed with patient along with risks vs benefits. Return in 1 year UTER NETWORKING INSTRUCTOR ADJUNCT documented in this encounter Plan of Treatment Scheduled Orders Name Type Priority Associated Diagnoses Orde r Schedule SCREENING MAMMOGRAM BILATERAL Imaging Schedule Routine, Read Routine (OP Routine) Encounter for screening mammogram for malignant neoplasm of breast Ordered: 09/29/2022 documented as of this encounter Procedures Procedure Name Priority Date/Time Associated Diagnosis Comments STOOL DNA ? COLOGUARD Routine 10/07/2022 2:06 PM COMPUTER NETWORKING INSTRUCTOR ADJUNCT Colon cancer screening documented in this encounter Results * Stool DNA - Cologuard (10/07/2022 2:06 PM COMPUTER NETWORKING INSTRUCTOR ADJUNCT) Stool 10/07/2022 2:06 PM COMPUTER NETWORKING INSTRUCTOR ADJUNCT 10/08/2022 1:56 PM COMPUTER NETWORKING INSTRUCTOR ADJUNCT Yung Michel MD LAB BODY FLUIDS AND STOOLS ORDERABLES Edited Result - Final [facility] * (ABNORMAL) CBC with auto differential (09/29/2022 10:45 AM COMPUTER NETWORKING INSTRUCTOR ADJUNCT) WBC 5.4 3.8 - 9.9 K/cumm [facility] Hgb 14.3 11.9 - 15.5 g/dL [facility] Hct 44.8 35.6 - 45.5 % [facility] Plt 230 150 - 400 K/cumm [facility] MPV 11.2 9.1 - 12.3 fL [facility] RBC 4.64 3.90 - 5.20 M/cumm [facility] MCV 96.6(H) 81.3 - 96.4 fL [facility] MCH 30.8 27.1 - 33.3 pg [facility] MCHC 31.9(L) 32.3 - 35.7 g/dL [facility] RDW CV 13.4 11.1 - 14.9 % [facility] RDW SD 47.8 35.7 - 48.1 fL [facility] NRBC abs 0.00 0.00 - 0.01 K/cumm [facility] Blood 09/29/2022 10:4 5 AM COMPUTER NETWORKING INSTRUCTOR ADJUNCT 09/29/2022 3:24 PM COMPUTER NETWORKING INSTRUCTOR ADJUNCT Yung Michel MD LAB BLOOD ORDERABLES Final Result [facility] [address] Department [place] [address] * Comprehensive metabolic panel (09/29/2022 10:45 AM COMPUTER NETWORKING INSTRUCTOR ADJUNCT) Sodium 140 135 - 145 mmol/L [facility] Potassium, pl 4.6 3.3 - 4.9 mmol/L [facility] Chloride 105 97 - 110 mmol/L [facility] CO2 24 22 - 32 mmol/L [facility] Anion gap 11 2 - 15 mmol/L [facility] BUN 15 8 - 25 mg/dL [facility] Creatinine 0.90 0.60 - 1.10 mg/dL [facility] Glucose 99 70 - 199 mg/dL [facility] Comment: [...] classification and Diagnosis of Diabetes Diabetes Care 202; 46: S19-S40. Current interpretive data was last revised 2022. Calcium 9.4 8.5 - 10.3 mg/dL [facility] Bilirubin, total 0.8 0.1 - 1.2 mg/dL [facility] Protein, pl 7.5 6.5 - 8.5 g/dL [facility] Albumin 4.2 3.5 - 5.0 g/dL [facility] Alk phos 103 40 - 130 Units/L [facility] ALT 14 7 - 45 Units/L [facility] AST 25 10 - 45 Units/L [facility] Blood 09/29/2022 10:4 5 AM COMPUTER NETWORKING INSTRUCTOR ADJUNCT 09/29/2022 3:24 PM COMPUTER NETWORKING INSTRUCTOR ADJUNCT us Yung Michel MD LAB BLOOD ORDERABLES Final Result [facility] [address] Department [place] [address] * Lipid panel (09/29/2022 10:45 AM COMPUTER NETWORKING INSTRUCTOR ADJUNCT) Cholesterol 197 30 - 199 mg/dL [facility] Comment: Interpretive Data Ages [...] Data was last revised on 2018. Triglycerides 70 <=149 mg/dL [facility] Comment: Interpretive Data [...] Data was last revised on 2018. HDL 68 >=40 mg/dL [facility] Comment: Interpretive Data [...] was last revised on 2018. LDL, calculated 115 <=129 mg/dL [facility] Comment: Interpretive Data Ages [...] was last revised on 2018. Non-HDL Cholesterol 129 mg/dL [facility] Comment: Interpretive Data Ages < or = [...] revised on 2018. Chol/HDL ratio 3 [facility] Blood 09/29/2022 10:4 5 AM COMPUTER NETWORKING INSTRUCTOR ADJUNCT 09/29/2022 3:24 PM COMPUTER NETWORKING INSTRUCTOR ADJUNCT Yung Michel MD LAB BLOOD ORDERABLES Final Result Performing Organization Address City/[facility] Co de Phone Number [facility] [phone] [facility] [place] [address] * TSH reflex to free T4 (09/29/2022 10:45 AM COMPUTER NETWORKING INSTRUCTOR ADJUNCT) TSH 2.75 0.30 - 4.20 mcIUnit/mL [facility] Blood 09/29/2022 10:4 5 AM COMPUTER NETWORKING INSTRUCTOR ADJUNCT 09/29/2022 3:24 PM COMPUTER NETWORKING INSTRUCTOR ADJUNCT Yung Michel MD LAB BLOOD ORDERABLES Final Result Performing Organization Address [facility] Co de Phone Number [facility] [phone] [facility] [place] [address] * Vitamin D 25 hydroxy (09/29/2022 10:45 AM COMPUTER NETWORKING INSTRUCTOR ADJUNCT) Vitamin D 25-OH 40 30 - 80 ng/mL [facility] Blood 09/29/2022 10:4 5 AM COMPUTER NETWORKING INSTRUCTOR ADJUNCT 09/29/2022 3:24 PM COMPUTER NETWORKING INSTRUCTOR ADJUNCT Yung Michel MD LAB BLOOD ORDERABLES Final Result Performing Organization Address [facility] Co de Phone Number [facility] [address] [facility] [place] [address] documented in this encounter Visit Diagnoses Diagnosis Encounter for Medicare annual wellness exam- Primary VTE (venous thromboembolism) Embolism and thrombosis of unspecified site Encounter for screening mammogram for malignant neoplasm of breast Colon cancer screening Special screening for malignant neoplasms, colon Screening for osteoporosis Special screening for osteoporosis Osteopenia of both hips Lipid screening Screening for lipoid disorders Screening for thyroid disorder documented in this encounter Historical Medications * This list may reflect changes made after this encounter. aspirin 81 mg enteric coated tablet Take 1 tablet (81 mg total) by mouth daily added in this encounter Care Teams Crime Prevention Worker Relationship Specialty Start Date End Date Yung Michel MD [address] [place] [address] PCP - General Family Medicine 09/24/21 documented as of this encounter
--- OUTSIDE RECORDS SUMMARY | 2024-08-04 16:40 | XMS_ITS | Encounter Summary ---
Author Organization [facility] Address [address] [address] Care Team Providers Care Date Night Caregiver Name Role Phone Yung Michel MD Primary Care Provider [phone]- [phone] Reason for Visit * Reason Comments Follow-up 6 month f/u Encounter Details Date Type Department Care Team (Late st Contact Info) Description 03/26/2022 9:45 AM CDT Office Visit [facility] Primary Care at [address] [address] Yung Michel MD [address] [place] [address] [address] [place] [address] VTE (venous thromboembolism) (Primary Dx) Social History Tobacco Use Types [...] and Family Not on file 09/27/2021 Attends [employer] Not on file 09/27 Active Member [...] staff should administer the PHQ-9) 0 09/24/2021 [facility] - Occupational Stress Questionnaire Answer Date Recorded Do you feel stress - tense, restless, nervous, or anxious, or unable to sleep at night because your mind is troubled all the time - these days? 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 N ot on file documented as of this encounter Last Filed Vital Signs Vital Sign Reading Time Taken Comments Blood Pressure 120/80 03/26/2022 9:54 AM CDT Pulse 82 03/26/2022 9:54 AM CDT Temperature 36 ??C (96.8 ??F) 03/26/2022 9:54 AM CDT Respiratory Rate 16 03/26/2022 9:54 AM CDT Oxygen Saturation 97% 03/26/2022 9:54 AM CDT Inhaled Oxygen Concentration - - Weight 74.8 kg (165 lb) 03/26/2022 9:54 AM CDT Height 160 cm (5' 3 ) 03/26/2022 9:54 AM CDT Body Mass Index 29.23 03/26/2022 9:54 AM CDT documented in this encounter Patient Instructions * Patient Instructions* Yung Michel MD - 03/26/2022 9:45 AM CDT Will poll the literature to see if there has been changed guidelines Reviewed. After 8 months of therapy, we will stop Eliquis. Continue multivitamin Thanks for coming in today! My medical assistants and I are thankful you have trusted us with your care, and hope that you received EXCELLENT care today! Please do not hesitate to call if you have any questions or concerns at [phone]. You may receive a phone call, text, MYCHART message, or e-mail asking about your care today. We would love to hear your feedback on how EXCELLENT your care wastoday! Wishing you better health, always. Dr. Michel documented in this encounter Progress Notes * Yung Michel MD - 03/26/2022 9:45 AM CDT Images from the original note were not included. Subjective/Objective Patient ID: Tamara Lion is a 71 y.o. female. Chief Complaint Follow-up (6 month f/u) Tamara presents for V. She is doing okay overall, no new complaints. She Inquires about getting off of Eliquis (started last July). 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 She read that the treatment shouldbe 6 months. We saw her in December, and I elected to continue the Eliquis at that time. Current Outpatient Medications: ??? Eliquis 5 mg tablet, Take 5 mg by mouth every 12 (twelve) hours, Disp: , Rfl: ??? multivitamin capsule, Take 1 capsule by mouth daily, Disp: , Rfl: Review of Systems Constitutional: Negative. HENT: Negative. Respiratory: Negative for cough, shortness of breath and wheezing. Cardiovascular: Negative for chest pain and palpitations. Gastrointestinal: Negative. Genitourinary: Negative. Musculoskeletal: Negative for neck pain. Neurological: Negative for headaches. Psychiatric/Behavioral: Negative. BP 120/80 (BP Location: Left arm, Patient Position: Sitting) Pulse 82 Temp 36 ??C (96.8 ??F) (Temporal) Resp 16 Ht 160 cm (5' 3 ) Wt 74.8 kg (165 lb) SpO2 97% BMI 29.23 kg/m?? Physical Exam Vitals reviewed. Constitutional: Appearance: She is overweight. HENT: Head: Normocephalic and atraumatic. Cardiovascular: Rate and Rhythm: Normal rate and regular rhythm. Pulmonary: Breath sounds: No wheezing, rhonchi or rales. Musculoskeletal: General: No tenderness. Right lower leg: No edema. Left lower leg: No edema. Neurological: Mental Status: She is alert. Psychiatric: Mood and Affect: Mood normal. No visits with results within 1 Month(s) from this visit. Latest known visit with results is: Lab on 12/04/2021 Component Date Value Ref Range Status ??? TSH 12/04/2021 2.63 0.30 - 4.20 mcIUnit/mL Final Assessment/Plan Diagnoses and all orders for this visit: VTE (venous thromboembolism) (Primary) Comments: Will poll the literature to see if there has been changed guidelines Reviewed. After 8 months of therapy, we will stop Eliquis. Continue multivitamin Yung Michel MD This office note has been partially dictated using AdReady software, and as a result portions of the record may have been created with this software. Occasional wrong-word or '[id number]' substitutions may have occurred due to the inherent limitations of voice recognition software. Read the chartcarefully and recognize, using context, where substitutions have occurred. documented in this encounter Plan of Treatment Not on file documented as of this encounter Visit Diagnoses Diagnosis VTE (venous thromboembolism)- Primary Embolism and thrombosis of unspecified site documented in this encounter Discontinued Medications Medication Sig Discontinue Reason Start Date End Da te ZINC ORAL Take by mouth 03/26/2022 Eliquis 5 mg tablet Take 5 mg by mouth every 12 (twelve) hours Therapy completed 09/12/2021 03/26/2022 documented as of this encounter Care Teams Date Night Caregiver Relationship Specialty Start Date End Date Yung Michel MD [address] [place] [address] PCP - General Family Medicine 09/24/21 documented as of this encounter
--- OUTSIDE RECORDS SUMMARY | 2024-08-04 16:41 | XMS_ITS | Encounter Summary ---
Author Organization [facility] Healthcare Address [address] [place] [address] Care Team Providers Care Coating Supervisor Name Role Phone Yung Michel MD Primary Care Provider [phone]- [phone] Encounter Details Date Type Department Care Team (Late st Contact Info) Description 12/04/2021 3:05 PM CDT Lab [address] [address] Alopecia Social History Tobacco Use Types Packs/Day Years [...] and Family Not on file 09/27/2021 Attends Buddhist Services Not on file 09/27 Active Member [...] staff should administer the PHQ-9) 0 09/24/2021 [facility] of Occupat ional Health - Occupational Stress [...] on file Legal Sex Female 11:24 AM RUBBER TRIMMER Gender Identity Not on file Sexual Orientation Not on file 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 N ot on file documented as of this encounter Plan of Treatment Not on file documented as of this encounter Procedures Procedure Name Priority Date/Time Associated Diagnosis Comments THYROID FUNCTION CASCADE Routine 12/04/2021 9:24 AM CDT Alopecia documented in this encounter Results * TSH reflex to free T4 (12/04/2021 9:24 AM CDT) TSH 2.63 0.30 - 4.20 mcIUnit/mL RICHARD ZAPATA Blood 12/04/2021 9:24 AM CDT 12/04/2021 3:19 PM CDT us Yung Michel MD LAB BLOOD ORDERABLES Final Result RICHARD [id number] [address] Department [place] [address] documented in this encounter Visit Diagnoses Diagnosis Alopecia documented in this encounter Care Teams Coating Supervisor Relationship Specialty Start Date End Date Yung Michel MD [address] [place] [address] PCP - General Family Medicine 09/24/21 documented as of this encounter
--- OUTSIDE RECORDS SUMMARY | 2024-08-04 16:41 | XMS_ITS | Encounter Summary ---
Author Organization [facility] Address [address] [address] Care Team Providers Care Cotton Factor Name Role Phone Yung Michel MD Primary Care Provider [phone] [phone] Encounter Details Date Type Department Care Team (Late st Contact Info) Description 12/04/2021 9:45 AM CDT Lab [facility] Outpatient Lab at [address] [address] Alopecia; Colon cancer screening; Encounter for Medicare annual wellness exam Social [...] staff should administer the PHQ-9) 0 09/24/2021 [facility] of Occupat ional Health - Occupational Stress [...] place to sleep or slept in a halfway (including now)? No 09/27/2021 Education Answer Date Recorded What is the highest level of school you have completed or the highest degree you have received? 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
--- OUTSIDE RECORDS SUMMARY | 2024-08-04 16:41 | XMS_ITS | Encounter Summary ---
Author Organization [facility] Address [address] [address] Care Team Providers Care Director Sanitation Bureau Name Role Phone Yung Michel MD Primary Care Provider [phone] Encounter Details Date Type Department Care Team (Late st Contact Info) Description 12/05/2021 Telephone [facility] Primary Care at [address] [address] Nisha Hauser MA Social History [...] and Family Not on file 09/27/2021 Attends Islam Services Not on file 09/27 Active Member [...] staff should administer the PHQ-9) 0 09/24/2021 [facility] of Occupat ional Health - Occupational Stress [...] place to sleep or slept in a fci (including now)? No 09/27/2021 Education Answer Date Recorded What is the highest level of school you have completed or the highest degree you have received? 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 I will want her to resume vitamin D3 supplement (1000 international units daily), that is OTC documented in this encounter Plan of Treatment Not on file documented as of this encounter Visit Diagnoses Not on filedocumented in this encounter Care Teams Director Sanitation Bureau Relationship Specialty Start Date End Date Yung Michel MD [facility] [place] [address] PCP - General Family Medicine 09/24/21 documented as of this encounter
--- OUTSIDE RECORDS SUMMARY | 2024-08-04 16:41 | XMS_ITS | Encounter Summary ---
Author Organization [facility] Address [address] [address] Care Team Providers Care Sign Builder Name Role Phone Yung Michel MD Primary Care Provider [phone]- [phone] Reason for Visit * Reason Comments Follow-up Pt is here for a fol low up Encounter Details Date Type Department Care Team (Late st Contact Info) Description 12/04/2021 8:30 AM CDT Office Visit [facility] Medical [facility] Primary Care at [address] [address] Yung Michel MD [address] [place] [address] [address] [place] [address] On medication for venous thromboembolism (VTE) (Primary Dx); Alopecia Social History Tobacco Use Types Packs/Day [...] and Family Not on file 09/27/2021 Attends Latter-Day Services Not on file 09/27 Active Member [...] staff should administer the PHQ-9) 0 09/24/2021 [facility] of Occupat ional Health - Occupational Stress [...] place to sleep or slept in a alf (including now)? No 09/27/2021 Education Answer Date Recorded What is the highest level of school you have completed or the highest degree you have received? 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 N ot on file documented as of this encounter Last Filed Vital Signs Vital Sign Reading Time Taken Comments Blood Pressure 128/82 12/04/2021 8:41 AM CDT Pulse 99 12/04/2021 8:41 AM CDT Temperature 36.6 ??C (97.8 ??F) 12/04/2021 8:41 AM CD T Respiratory Rate 18 12/04/2021 8:41 AM CDT Oxygen Saturation 95% 12/04/2021 8:41 AM CDT Inhaled Oxygen Concentration - - Weight 76.5 kg (168 lb 9.6 oz) 12/04/2021 8:41 A M CDT Height 160 cm (5' 2.99 ) 12/04/2021 8:41 AM CDT Body Mass Index 29.87 12/04/2021 8:41 AM CDT documented in this encounter Patient Instructions * Patient Instructions* Yung Michel MD - 12/04/2021 8:30 AM CDT The pigmentation issue likely has a genetic component. Circulation appears adequate (good ankle andfoot pulses). Focus on leg strengthening exercises (walking, for example) to build tone and help venous return to the heart Eliquis samples given. Will research the savings options (medicare doesn't allow savings cards fromthe strength and conditioning coach, however). GoodRx was not much of a savings either. BP is controlled Checking thyroid function Given the combined pulmonary embolism and DVT, plus the rough course of Covid (virus leaves lingering elevated risk for clots), it would make better sense to leave Eliquis in place. Thanks for coming in today! My medical assistants and I are thankful you have trusted us with your care, and hope that you received EXCELLENT care today! Please do not hesitate to call if you have any questions or concerns at [phone]. You may receive a phone call, text, MYCHART message, or e-mail asking about your care today. We would love to hear your feedback on how EXCELLENT your care wastoday! Wishing you better health, always. Dr. Michel documented in this encounter Progress Notes * Yung Michel MD - 12/04/2021 8:30 AM CDT Images from the original note were not included. Subjective/Objective Patient ID: Tamara Lion is a 71 y.o. female. Chief Complaint Follow-up (Pt is here for a follow up ) Alopecia rougly since starting Eliquis. She had PE and DVT Cough persists, though hasn't coughed during appointment today (did so twice) Complains Eliquis is 300$ a month Worries if her lungs are strong enough for surgery (may need urological and orthopaedic procedures) She c/o discoloration of her shins. Mother had same condition. Current Outpatient Medications: ??? Eliquis 5 mg tablet, Take 5 mg by mouth every 12 (twelve) hours, Disp: , Rfl: ??? multivitamin capsule, Take 1 capsule by mouth daily, Disp: , Rfl: ??? ZINC ORAL, Take by mouth, Disp: , Rfl: Review of Systems Constitutional: Negative for fatigue and fever. Respiratory: Negative for cough, shortness of breath and wheezing. Cardiovascular: Negative for chest pain and palpitations. Skin: Positive for hair loss Psychiatric/Behavioral: Negative. BP 128/82 (BP Location: Left arm, Patient Position: Sitting) Pulse 99 Temp 36.6 ??C (97.8 ??F) (Temporal) Resp 18 Ht 160 cm (5' 2.99 ) Wt 76.5 kg (168 lb 9.6 oz) SpO2 95% BMI 29.87 kg/m?? Physical Exam Vitals reviewed. Constitutional: Appearance: She is overweight. HENT: Head: Normocephalic. Cardiovascular: Rate and Rhythm: Normal rate and regular rhythm. Heart sounds: No murmur heard. No friction rub. No gallop. Pulmonary: Breath sounds: No wheezing, rhonchi or rales. Musculoskeletal: Right lower leg: No edema. Left lower leg: No edema. Neurological: Mental Status: She is alert and oriented to person, place, and time. Assessment/Plan Diagnoses and all orders for this visit: On medication for venous thromboembolism (VTE) (Primary) Assessment & Plan: The pigmentation issue likely has a genetic component. Circulation appears adequate (good ankle andfoot pulses). Focus on leg strengthening exercises (walking, for example) to build tone and help venous return to the heart Eliquis samples given. Will research the savings options (medicare doesn't allow savings cards fromthe strength and conditioning coach, however). GoodRx was not much of a savings either. BP is controlled Checking thyroid function Given the combined pulmonary embolism and DVT, plus the rough course of Covid (virus leaves lingering elevated risk for clots), it would make better sense to leave Eliquis in place. Alopecia - TSH reflex to free T4; Future she wants to wait on mammogram (covid? Expenses?) My total encounter time on 12/04/2021 was 45 minutes which was spent in the activities documented in the note. This includes time spent prior to the visit and after the visit in direct care of the patient. This time does not include time spent in any separately reportable services. Yung Michel MD This office note has been partially dictated using [employer] software, and as a result portions of the record may have been created with this software. Occasional wrong-word or '[id number]' substitutions may have occurred due to the inherent limitations of voice recognition software. Read the chartcarefully and recognize, using context, where substitutions have occurred. documented in this encounter Miscellaneous Notes * Assessment & Plan Note - Yung Michel MD - 12/04/2021 5:17 PM CDT Associated Problem(s): On medication for venous thromboembolism (VTE) The pigmentation issue likely has a genetic component. Circulation appears adequate (good ankle andfoot pulses). Focus on leg strengthening exercises (walking, for example) to build tone and help venous return to the heart Eliquis samples given. Will research the savings options (medicare doesn't allow savings cards fromthe strength and conditioning coach, however). GoodRx was not much of a savings either. BP is controlled Checking thyroid function Given the combined pulmonary embolism and DVT, plus the rough course of Covid (virus leaves lingering elevated risk for clots), it would make better sense to leave Eliquis in place. documented in this encounter Plan of Treatment Not on file documented as of this encounter Results * TSH reflex to free T4 (12/04/2021 9:24 AM CDT) TSH 2.63 0.30 - 4.20 mcIUnit/mL RICHARD ZAPATA Blood 12/04/2021 9:24 AM CDT 12/04/2021 3:19 PM CDT us Yung Michel MD LAB BLOOD ORDERABLES Final Result RICHARD [address] [address] Department [place] [address] documented in this encounter Visit Diagnoses Diagnosis On medication for venous thromboembolism (VTE)- Primary Alopecia documented in this encounter Discontinued Medications Medication Sig Discontinue Reason Start Date End Da te ascorbic acid (VITAMIN C ORAL) Take by mouth Alternate therapy 12/04/2021 cholecalciferol, vitamin D3, (VITAMIN D3 ORAL) Take by mouth Alternate therapy 12/04/2021 documented as of this encounter Historical Medications * This list may reflect changes made after this encounter. multivitamin capsule Take 1 capsule by mouth daily added in this encounter Care Teams Sign Builder Relationship Specialty Start Date End Date Yung Michel MD [address] [place] [address] PCP - General Family Medicine 09/24/21 documented as of this encounter
--- OUTSIDE RECORDS SUMMARY | 2024-08-04 16:41 | XMS_ITS | Encounter Summary ---
Author Organization [facility] Address [address] [address] Care Team Providers Care Denial Resolution Specialist Name Role Phone Yung Michel MD Primary Care Provider [phone] [phone] Encounter Details Date Type Department Care Team (Late st Contact Info) Description 12/06/2021 Telephone [facility] Primary Care at [address] [address] Nisha Hauser MA Social History [...] and Family Not on file 09/27/2021 Attends Hinduism Services Not on file 09/27 Active Member [...] staff should administer the PHQ-9) 0 09/24/2021 [facility] of Occupat ional Health - Occupational [...] a nursing home (including now)? No 09/27/2021 Education Answer Date Recorded What is the highest level of school you have completed or the highest degree you have received? 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 * Telephone Encounter - Nisha Hauser MA - 12/06/2021 2:39 PM CDT ----- Message from Yung Michel MD sent at 12/05/2021 1:08 PM CDT ----- Thyroid is in normal range. documented in this encounter Plan of Treatment Not on file documented as of this encounter Visit Diagnoses Not on filedocumented in this encounter Care Teams Denial Resolution Specialist Relationship Specialty Start Date End Date Yung Michel MD [address] [place] [address] PCP - General Family Medicine 09/24/21 documented as of this encounter
--- OUTSIDE RECORDS SUMMARY | 2024-08-04 16:42 | XMS_ITS | Encounter Summary ---
Author Organization [facility] Group Address [address] [address] Care Team Providers Care Planning Rn Name Role Phone Yung Michel MD Primary Care Provider [phone]- [phone] Encounter Details Date Type Department Care Team (Late st Contact Info) Description 10/24/2021 Orders Only [facility] Medical [facility] Primary Care at [address] [address] Yung Michel MD [address] [place] [address] [address] [place] [address] Social History Tobacco Use Types [...] and Family Not on file 09/27/2021 Attends Jainism Services Not on file 09/27 Active Member [...] staff should administer the PHQ-9) 0 09/24/2021 [facility] of Occupat ional Health - Occupational Stress [...] in a mcc (including now)? No 09/27/2021 Education Answer Date Recorded What is the highest level of school you have completed or the highest degree you have received? 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
--- OUTSIDE RECORDS SUMMARY | 2024-08-04 16:42 | XMS_ITS | Encounter Summary ---
Author Organization [facility] Address [address] [address] Care Team Providers Care Winding Inspector Name Role Phone Yung Michel MD Primary Care Provider [phone]- [phone] Encounter Details Date Type Department Care Team (Late st Contact Info) Description 11/20/2021 Telephone [facility] Primary Care at [address] [address] Yung Michel MD [address] [place] [address] [address] [place] [address] Social History Tobacco Use Types [...] should administer the PHQ-9) 0 09/24/2021 [facility] of Occupat ional Health - Occupational Stress [...] on file 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 She was scheduled tosee Dr. Michel. documented in this encounter Plan of Treatment Not on file documented as of this encounter Visit Diagnoses Not on filedocumented in this encounter Care Teams Winding Inspector Relationship Specialty Start Date End Date Yung Michel MD [facility] [place] [address] PCP - General Family Medicine 09/24/21 documented as of this encounter
--- OUTSIDE RECORDS SUMMARY | 2024-08-04 16:42 | XMS_ITS | Encounter Summary ---
Author Organization [facility] Address [address] [address] Care Team Providers Care Voltage Regulator Assembler Name Role Phone Yung Michel MD Primary Care Provider +1- [phone] Reason for Visit * Reason Onset Date Comments overdue results 10/30/2021 Mammogram and DE XA Encounter Details Date Type Department Care Team (Late st Contact Info) Description 10/30/2021 Telephone [facility] Medical [facility] Primary Care at [address] [address] Yung Michel MD [address] [place] [address] [address] [place] [address] overdue results (Mammogram and DEXA) Social History Tobacco Use Types Packs/Day Years [...] and Family Not on file 09/27/2021 Attends Faith Services Not on file 09/27 Active Member [...] staff should administer the PHQ-9) 0 09/24/2021 [facility] of Occupat ional Health - Occupational Stress [...] place to sleep or slept in a longterm (including now)? No 09/27/2021 Education Answer Date Recorded What is the highest level of school you have completed or the highest degree you have received? 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 The patient will call [facility] to scheduled. She will hold off on the mammogram at this time. * Telephone Encounter - Lorraine Harris MA - 10/30/2021 10:43 AM CDT Mailed letter to patient asking if they have had outstanding mammogram and DEXA completed. documented in this encounter Plan of Treatment Not on file documented as of this encounter Visit Diagnoses Not on filedocumented in this encounter Care Teams Voltage Regulator Assembler Relationship Specialty Start Date End Date Yung Michel MD [address] [place] [address] PCP - General Family Medicine 09/24/21 documented as of this encounter
--- OUTSIDE RECORDS SUMMARY | 2024-08-04 16:42 | XMS_ITS | Encounter Summary ---
Author Organization Formerly [facility] Address [address] [place] [address] Care Team Providers Care Mortar Maker Name Role Phone Yung Michel MD Primary Care Provider [phone] Reason for Referral * Diagnostic Imaging (Routine) - Closed Specialty Diagnoses / Procedures Referred By Shakila t Referred To Contact Diagnoses Screening for osteoporosis long-term (current) use of systemic steroids Procedures Dexa Axial Skeleton Bone Density 1 Or 2 Site Yung Michel MD Phone: tel: fax: Referral ID Status Reason Start Date Expiration Date Visits Re quested Visits Authorized [id number] Closed 09/24/2021 10/24/2022 1 1 Reason for Visit * Diagnostic Imaging (Routine) - Closed Specialty Diagnoses / Procedures Referred By Shakila sharpe Referred To Contact Diagnoses Screening for osteoporosis long-term (current) use of systemic steroids Procedures Dexa Axial Skeleton Bone Density 1 Or 2 Site Yung Michel MD Phone: tel: fax: Referral ID Status Reason Start Date Expiration Date Visits Re quested Visits Authorized [id number] Closed 09/24/2021 10/24/2022 1 1 Encounter Details Date Type Department Care Team (Latest Contact Info) Description 12/03/2021 1:09 PM CDT - 12/03/2021 11:59 PM CDT Hospital Encounter [facility] [address] [place] [address] Yung Michel MD [address] [facility] [address] [place] [address] Screening for osteoporosis; long-term (current) use of systemic steroids Discharge Disposition: Discharge to home or self [...] and Family Not on file 09/27/2021 Attends Holiness Services Not on file 09/27 Active Member [...] staff should administer the PHQ-9) 0 09/24/2021 [facility] of Occupat ional Health - Occupational Stress [...] on file 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 Gender Identity Not on file Sexual Orientation Not on file 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 N ot on file documented as of this encounter Medications at Time of Discharge ascorbic acid (VITAMIN C ORAL) Take by mouth 12/04/2021 cholecalciferol, vitamin D3, (VITAMIN D3 ORAL) Take by mouth 12/04/2021 Eliquis 5 mg tablet Take 5 mg by mouth every 12 (twelve) hours 09/12/2021 03/26/2022 ZINC ORAL Take by mouth 03/26/2022 documented as of this encounter Discharge Disposition Disposition Code Departure Means Destination Discharge to home or self care documented in this encounter Plan of Treatment Not on file documented as of this encounter Procedures Procedure Name Priority Date/Time Associated Diagnosis Comments DEXA AXIAL SKELETON BONE DENSITY 1 OR MORE SITES Schedule Routine, Read Routine (OP Routine) 12/03/2021 1:36 PM CDT Screening for osteoporosis long-term (current) use of systemic steroids documented in this encounter Results * Dexa Axial Skeleton Bone Density 1 Or 2 Site (12/03/2021 1:36 PM CDT) Anatomical Region Laterality Modality Body N/A Other 12/03/2021 9:26 PM CDT Narrative 12/03/2021 9:27 PM CDT EXAM DESCRIPTION: ?? DEXA AXIAL SKELETON BONE DENSITY 1 OR MORE SITES REASON FOR STUDY: ?71 y/o ?? year old ?? F ??with given history of screening. Tipple Oiler/Model: ?? [employer] (S/N [id number]) CLINICAL INFORMATION: Current height: ?? 63 ??inches [...] PM T: ??12/03/2021 9:27 PM Report ID: [id number] Reading Location: ??[id number] Procedure Note Raul Conklin MD - 12/03/2021 EXAM DESCRIPTION: DEXA AXIAL SKELETON BONE DENSITY 1 OR MORE SITES REASON FOR STUDY: 71 y/o year old F with given history ofscreening. Tipple Oiler/Model: [employer] SL (S/N [id number]) CLINICAL INFORMATION: Current height: 63 inches Maximum [...] Raul Conklin M.D. MF: SHERIE Report ID: [id number] Reading Location: [place] [address] Yung Michel MD IMG DXA PROCEDURES Final Re sult documented in this encounter Visit Diagnoses Diagnosis Screening for osteoporosis Special screening for osteoporosis meterman (current) use of systemic steroids documented in this encounter Care Teams Mortar Maker Relationship Specialty Start Date End Date Yung Michel MD [address] [place] [id number] PCP - General Family Medicine 09/24/21 documented as of this encounter
--- OUTSIDE RECORDS SUMMARY | 2024-08-04 16:42 | XMS_ITS | Encounter Summary ---
Author Organization [facility] Address [address] [place] [address] Care Team Providers Care Phone Operator Name Role Phone Yung Michel MD Primary Care Provider [phone] Encounter Details Date Type Department Care Team (Late st Contact Info) Description 12/02/2021 Telephone [facility] [address] [place] [address] Harika Hawkins, RT Social History Tobacco Use Types Packs/Day Years [...] and Family Not on file 09/27/2021 Attends Restoration Services Not on file 09/27 Active Member [...] staff should administer the PHQ-9) 0 09/24/2021 [facility] Occupat ional Health - [...] place to sleep or slept in a jail (including now)? No 09/27/2021 Education Answer Date Recorded What is the highest level of school you have completed or the highest degree you have received? 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
--- OUTSIDE RECORDS SUMMARY | 2024-08-04 16:43 | XMS_ITS | Encounter Summary ---
Author Organization [facility] Address [address] [address] Care Team Providers Care Dog Behaviorist Name Role Phone Yung Michel MD Primary Care Provider [phone] Reason for Referral * Diagnostic Imaging (Routine) - Closed Specialty Diagnoses / Procedures Referred By Shakila sharpe Referred To Contact Diagnoses Screening for osteoporosis long-term (current) use of systemic steroids Procedures Dexa Axial Skeleton Bone Density 1 Or 2 Site Yung Michel MD Phone: tel: fax: Referral ID Status Reason Start Date Expiration Date Visits Re quested Visits Authorized [id number] Closed 09/24/2021 10/24/2022 1 1 MACHINE OPERATOR Reason for Visit * Reason Comments New Patient New patient Encounter Details Date Type Department Care Team (Late st Contact Info) Description 09/24/2021 2:15 PM BEAM MACHINE OPERATOR Office Visit [facility] Primary Care at [address] [address] Yung Michel MD [address] [place] [id number] Encounter for Medicare annual wellness exam (Primary Dx); Colon cancer screening; Screening for osteoporosis; Lipid screening; Breast cancer screening by mammogram; Encounter for hepatitis C screening test for low risk patient; History of pneumonia; long-term (current) use of systemic steroids Social History Tobacco Use Types Packs/Day Years [...] and Family Not on file 09/27/2021 Attends Voodoo Services Not on file 09/27 Active Member [...] staff should administer the PHQ-9) 0 09/24/2021 [facility] of Occupat ional Health - Occupational [...] place to sleep or slept in a half-way (including now)? No 09/27/2021 Education Answer Date Recorded What is the highest level of school you have completed or the highest degree you have received? 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 N ot on file documented as of this encounter Last Filed Vital Signs Vital Sign Reading Time Taken Comments Blood Pressure 126/82 09/24/2021 2:38 PM BEAM MACHINE OPERATOR Pulse 90 09/24/2021 2:38 PM BEAM MACHINE OPERATOR Temperature 35.8 ??C (96.4 ??F) 09/24/2021 2:38 PM CS T Respiratory Rate 16 09/24/2021 2:38 PM BEAM MACHINE OPERATOR Oxygen Saturation 96% 09/24/2021 2:38 PM BEAM MACHINE OPERATOR Inhaled Oxygen Concentration - - Weight 76.7 kg (169 lb) 09/24/2021 2:38 PM BEAM MACHINE OPERATOR Height 160 cm (5' 3 ) 09/24/2021 2:38 PM BEAM MACHINE OPERATOR Body Mass Index 29.94 09/24/2021 2:38 PM BEAM MACHINE OPERATOR documented in this encounter Patient Instructions * Patient Instructions* Yung Michel MD - 09/24/2021 2:15 PM BEAM MACHINE OPERATOR BP is controlled Labs as ordered Continue Eliquis, vitamin D Zinc, I think we can probably put that one up now. A good multivitamin- multimineral like Centrum should provide enough of that mineral DEXA, mammogram ordered for [place] Colonoscopy ordered () with Dr. Chawla Thanks for coming in today! My medical assistants and I are thankful you have trusted us with your care, and hope that you received EXCELLENT care today! Please do not hesitate to call if you have any questions or concerns at [phone]. You may receive a phone call, text, MYCHART message, or e-mail asking about your care today. We would love to hear your feedback on how EXCELLENT your care wastoday! Wishing you better health, always. Dr. Michel MACHINE OPERATOR documented in this encounter Progress Notes * Yung Michel MD - 09/24/2021 2:15 PM CST MEDICARE ANNUAL WELLNESS VISIT Tamara Lion Medicare Health Risk Assessment Basic Information In general, would you say your health is: Excellent Do you have an advance directive, such as a living will or durable power of real estate associate attorney?: No Do you have trouble hearing the television or radio when other do not?: Yes Do you have to strain or struggle to hear/understand conversations?: Yes Have you experienced any of the following problems currently or recently? Walking: Yes Have you experienced any of the following problems currently or recently? Transportation: Yes Problem List, Past Medical and Surgical History: Patient Active Problem List Diagnosis ??? Colon cancer screening Past Medical History: Diagnosis Date ??? Hx [...] Problems Paternal Grandfather Social History: Social History Socioeconomic History ??? Marital status: Spouse name: Uri ??? Number of children: 2 ??? Years of education: Not on file ??? Highest education level: Bachelor's degree (e.g., BA, AB, BS) Occupational History ??? 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 Smoking status: Never Smoker ??? Smokeless tobacco: Never Used Substance and Sexual Activity ??? Alcohol use: Not on file ??? Drug use: Never ??? Sexual activity: Not on file Other Topics Concern ??? Not on file Social History Narrative ??? Not on file Social Determinants of Health Financial Resource Strain: Low Risk ??? Difficulty of Paying Living Expenses: Not hard at all Food Insecurity: Not on file Transportation Needs: Not on file Physical Activity: Not on file Stress: No Stress Concern Present ??? Feeling of Stress : Only a little Social Connections: Unknown ??? Frequency of Communication with Friends and Family: Not on file ??? Frequency of Social Gatherings with Friends and Family: Not on file ??? Attends Voodoo Services: Not on file ??? Active Member of Clubs or Organizations: Not on file ??? Attends Club or Organization Meetings: Not on file ??? Marital Status: Intimate Partner Violence: Not At Risk ??? Fear of Current or Ex-Partner: No ??? Emotionally Abused: No ??? Physically Abused: No ??? Sexually Abused: No Housing Stability: Unknown ??? Unable to Pay for Housing in the Last Year: Not on file ??? Number of Places Lived in the Last Year: Not on file ??? Unstable Housing in the Last Year: No Allergies: No Known Allergies Medications: Current Outpatient Medications: ??? ascorbic acid (VITAMIN C ORAL), Take by mouth, Disp: , Rfl: ??? Eliquis 5 mg tablet, Take 5 mg by mouth every 12 (twelve) hours, Disp: , Rfl: ??? cholecalciferol, vitamin D3, (VITAMIN D3 ORAL), Take by mouth, Disp: , Rfl: ??? ZINC ORAL, Take by mouth, Disp: , Rfl: Depression Screen: PHQ Screening [...] points, staff should administer the PHQ-9): 0 Trouble Falling or Staying Asleep, or Sleeping too Much: Not at all Feeling Tired or Having Little Energy: Several days Poor Appetite or Overeating: Not at all Feeling Bad About Yourself - or That You are a Failure or Have Let Yourself or Your Family Down: Not at all Trouble Concentrating on Things, Such as Reading the Newspaper or Watching Television: Not at all Moving or Speaking so Slowly That Other People Could Have Noticed, or the Opposite - Being so Fidgety or Restless That You Have Been Moving Around a lot More Than Usual: Not at all Thoughts That You Would be Better off , or of Hurting Yourself in Some Way: Not at all PHQ-9 Total Score: 1 If you checked off any problems, how difficult have these problems made it for you to do your work,take care of things at home, or get along with other people?: Not difficult at all STEADI Fall Risk Screening In the past year, patient experienced: One or more falls in the last year: No Has trouble stepping up onto a curb: No Advised to use a cane or walker to get around safely: No Often has to cifuentes to the toilet: Yes Feels unsteady when walking: Yes Has lost some feeling in feet: No Steadies self on furniture while walking at home: Yes Takes medicine that makes him/her feel lightheaded or more tired than usual: No Worried about falling: Yes Takes medicine to sleep or improve mood: No Needs to push with hands when rising from a chair: Yes Often feels sad or depressed: No STEADI Score Total: 5 Vitals: Vitals BP 126/82 (BP Location: Left arm, Patient Position: Sitting) Pulse 90 Temp (!) 35.8 ??C (96.4 ??F) (Temporal) Resp 16 Ht 160 cm (5' 3 ) Wt 76.7 kg (169 lb) SpO2 96% BMI 29.94 kg/m?? Body mass index is 29.94 kg/m??. Exam: Physical Exam Care Team Providers: Patient Care Team: Yung Michel MD as PCP - General (Family Medicine) Primary Pharmacy/DME suppliers: [id number] [place], [place] - [address] [place] [address] [address] [facility] [address] Detection of Cognitive Impairment: The patient does not have cognitive impairment based on direct observation, discussion with patientor family, or review of medical records. Health Maintenance: Health Maintenance Topics with due status: Overdue Topic Date Due Regular Well Visit/Exam Never done Breast Cancer Screening-Mammogram Never done Osteoporosis Screening-Bone Density Scan Never done Colon Cancer Screening-Colonoscopy Never done Health Maintenance Topics with due status: Postponed Topic Postponed Until Influenza Vaccine 01/30/2022 (Originally 04/03/2021) Pneumococcal vaccine 65+ 08/01/2022 (Originally 2014) Zoster Vaccines 08/01/2022 (Originally 11/20/1999) Health Maintenance Topics with due status: Not Due Topic Last Completion Date DTaP/Tdap/Td Vaccine 05/13/2016 Fall Risk Assessment 09/24/2021 Depression Screening-PHQ 09/24/2021 Health Maintenance Topics with due status: Completed Topic Last Completion Date Hepatitis C Screening 09/24/2021 Counseling and Referral of Preventative Services: Lifestyle Recommendations Increase Physical Activity, Reduce Weight and Improve Diet Advanced Directive Durable Power of Dynamicist: No Living Will: No Assessment and Plan: Diagnoses and all orders for this visit: Encounter for Medicare annual wellness exam (Primary) Assessment & Plan: A initial Medicare Annual Wellness Visit has [...] of that mineral DEXA, mammogram ordered for Ed Colonoscopy ordered () with Dr. Chawla Colon cancer screening - Direct Scheduling Case Request: COLONOSCOPY Screening for osteoporosis - Dexa Axial Skeleton Bone Density 1 Or 2 Site; Future Lipid screening - Lipid panel; Future Breast cancer screening by mammogram - Screening Mammogram 2D Bilateral; Future Encounter for hepatitis C screening test for low risk patient - Hepatitis C antibody; Future History of pneumonia - CBC with auto differential; Future - Comprehensive metabolic panel; Future long-term (current) use of systemic steroids - Dexa Axial Skeleton Bone Density 1 Or 2 Site; Future Patient here for annual Medicare wellness [...] update and summary of today's office visit. MACHINE OPERATOR documented in this encounter Miscellaneous Notes * Assessment & Plan Note - Yung Michel MD - 09/27/2021 3:55 PM BEAM MACHINE OPERATOR Associated Problem(s): Encounter for Medicare annual wellness exam A initial Medicare Annual Wellness Visit has [...] of that mineral DEXA, mammogram ordered for [place] Colonoscopy ordered () with Dr. Chawla MACHINE OPERATOR documented in this encounter Plan of Treatment Not on file documented as of this encounter Results * Dexa Axial Skeleton Bone Density 1 Or 2 Site (12/03/2021 1:36 PM CDT) Anatomical Region Laterality Modality Body N/A Other 12/03/2021 9:26 PM CDT Narrative 12/03/2021 9:27 PM CDT EXAM DESCRIPTION: ?? DEXA AXIAL SKELETON BONE DENSITY 1 OR MORE SITES REASON FOR STUDY: ?71 y/o ?? year old ?? F ??with given history of screening. 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 [employer] SL (S/N [id number]) CLINICAL INFORMATION: Current height: ?? 63 ??inches [...] PM T: ??12/03/2021 9:27 PM Report ID: [id number] Reading Location: ??[id number] Procedure Note Raul Conklin MD - 12/03/2021 EXAM DESCRIPTION: DEXA AXIAL SKELETON BONE DENSITY 1 OR MORE SITES REASON FOR STUDY: 71 y/o year old F with given history ofscreening. 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 MF: SHERIE Report ID: [id number] Reading Location: [place] [address] us Yung Michel MD IMG DXA PROCEDURES Final Re sult * (ABNORMAL) Lipid panel (09/24/2021 3:27 PM BEAM MACHINE OPERATOR) [facility] Cholesterol 211(H) 30 - 199 mg/dL RICHARD ZAPATA Comment: Interpretive Data Ages [...] Data was last revised on 2018. Triglycerides 159(H) <=149 mg/dL RICHARD ZAPATA Comment: Interpretive Data [...] Data was last revised on 2018. HDL 51 >=40 mg/dL RICHARD Comment: Interpretive Data Ages [...] was last revised on 2018. LDL, calculated 128 <=129 mg/dL RICHARD Comment: Interpretive Data Ages [...] was last revised on 2018. Non-HDL Cholesterol 160 mg/dL CERNER CH Comment: Interpretive Data Ages [...] was last revised on 2018. Chol/HDL ratio 4 [facility] Blood 09/24/2021 3:27 PM BEAM MACHINE OPERATOR 09/24/2021 9:09 PM BEAM MACHINE OPERATOR us Yung Michel MD LAB BLOOD ORDERABLES Final Result [facility] [address] [address] Department [place] [address] * Comprehensive metabolic panel (09/24/2021 3:27 PM BEAM MACHINE OPERATOR) Sodium 142 135 - 145 mmol/L [facility] Potassium, pl 4.1 3.3 - 4.9 mmol/L [facility] Chloride 105 97 - 110 mmol/L [facility] CO2 25 22 - 32 mmol/L [facility] Anion gap 12 2 - 15 mmol/L [facility] BUN 12 8 - 25 mg/dL [facility] Creatinine 0.86 0.60 - 1.10 mg/dL [facility] Glucose 101 70 - 199 mg/dL [facility] Comment: [...] classification and Diagnosis of Diabetes Diabetes Care 2017;40 (Suppl. 1):S11. Current interpretive data was last revised 2017. Calcium 9.2 8.5 - 10.3 mg/dL [facility] Bilirubin, total 0.2 0.1 - 1.2 mg/dL [facility] Protein, pl 7.6 6.5 - 8.5 g/dL [facility] Albumin 4.3 3.5 - 5.0 g/dL [facility] Alk phos 97 40 - 130 Units/L [facility] ALT 14 7 - 45 Units/L [facility] AST 21 10 - 45 Units/L [facility] Blood 09/24/2021 3:27 PM BEAM MACHINE OPERATOR 09/24/2021 9:09 PM BEAM MACHINE OPERATOR us Yung Michel MD LAB BLOOD ORDERABLES Final Result [facility] [address] Department [place] [address] * (ABNORMAL) CBC with auto differential (09/24/2021 3:27 PM BEAM MACHINE OPERATOR) WBC 5.9 3.8 - 9.9 K/cumm [facility] Hgb 13.2 11.9 - 15.5 g/dL [facility] Hct 42.6 35.6 - 45.5 % [facility] Plt 333 150 - 400 K/cumm [facility] MPV 10.6 9.1 - 12.3 fL [facility] RBC 4.28 3.90 - 5.20 M/cumm [facility] MCV 99.5(H) 81.3 - 96.4 fL [facility] MCH 30.8 27.1 - 33.3 pg [facility] MCHC 31.0(L) 32.3 - 35.7 g/dL [facility] RDW CV 14.2 11.1 - 14.9 % [facility] RDW SD 51.9(H) 35.7 - 48.1 fL [facility] NRBC abs 0.00 0.00 - 0.01 K/cumm [facility] Blood 09/24/2021 3:27 PM BEAM MACHINE OPERATOR 09/24/2021 9:09 PM BEAM MACHINE OPERATOR Yung Michel MD LAB BLOOD ORDERABLES Final Result Performing Organization Address [facility] de Phone Number [facility] [address] Department [place] [address] * Hepatitis C antibody (09/24/2021 3:27 PM BEAM MACHINE OPERATOR) Hep C Ab Nonreactive Nonreactive [facility] Comment: Interpretive Data Nonreactive: Antibodies to HCV [...] revised on 2019. Blood 09/24/2021 3:27 PM BEAM MACHINE OPERATOR 09/24/2021 9:09 PM BEAM MACHINE OPERATOR Yung Michel MD LAB MICROBIOLOGY - GENERAL ORDERABLES Final Result Performing Organization Address [facility] de Phone Number [facility] [address] [place] [address] documented in this encounter Visit Diagnoses Diagnosis Encounter for Medicare annual wellness exam- Primary Colon cancer screening Special screening for malignant neoplasms, colon Screening for osteoporosis Special screening for osteoporosis Lipid screening Screening for lipoid disorders Breast cancer screening by mammogram Encounter for hepatitis C screening test for low risk patient History of pneumonia Personal history of pneumonia (recurrent) 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 cholecalciferol, vitamin D3, (VITAMIN D3 ORAL) Take by mouth 12/04/2021 ZINC ORAL Take by mouth 03/26/2022 ascorbic acid (VITAMIN C ORAL) Take by mouth 12/04/2021 Eliquis 5 mg tablet Take 5 mg by mouth every 12 (twelve) hours 09/12/2021 03/26/2022 added in this encounter Care Teams Dog Behaviorist Relationship Specialty Start Date End Date Yung Michel MD [address] [place] [address] PCP - General Family Medicine 09/24/21 documented as of this encounter
--- OUTSIDE RECORDS SUMMARY | 2024-08-04 16:43 | XMS_ITS | Encounter Summary ---
Author Organization [facility] Medical [facility] Address [address] [address] Care Team Providers Care Diesel Technician Name Role Phone Yung Michel MD Primary Care Provider [phone] Encounter Details Date Type Department Care Team (Late st Contact Info) Description 09/24/2021 3:30 PM COMPLIANCE ASSISTANT Lab [facility] Outpatient Lab at [address] [address] Colon cancer screening; Screening for osteoporosis; Lipid screening; Breast cancer screening by mammogram; Encounter for Medicare annual wellness exam; Encounter for hepatitis C screening test for low risk patient; History of pneumonia; [facility] (current) use of systemic steroids Social History Tobacco Use Types Packs/Day Years Used Date Smoking Tobacco: Never Smokeless Tobacco: Never AUDIT-C Answer Date Recorded Q1: How often do you have a drink containing alc ohol? Never 09/24/2021 Average Number of Drinks Not on file 022 Q3: How often do you have si x or more drinks on one occasion? Never 09/24/2021 PHQ-2 Answer Date Recorded PHQ-2 Total Score (If total score is 3 or more points, staff should administer the PHQ-9) 0 09/24/2021 Education Answer Date Recorded What is the highest level of school you have completed or the highest degree you have received? 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 N ot on file documented as of this encounter Plan of Treatment Not on file documented as of this encounter Visit Diagnoses Diagnosis Colon cancer screening Special screening for malignant neoplasms, colon Screening for osteoporosis Special screening for osteoporosis Lipid screening Screening for lipoid disorders Breast cancer screening by mammogram Encounter for Medicare annual wellness exam Encounter for hepatitis C screening test for low risk patient History of pneumonia Personal history of pneumonia (recurrent) 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
--- OUTSIDE RECORDS SUMMARY | 2024-08-04 16:43 | XMS_ITS | Encounter Summary ---
Author Organization [facility] Medical [facility] Address [address] [address] Care Team Providers Care Planning Division Superintendent Name Role Phone Yung Michel MD Primary Care Provider [phone] Reason for Visit * Reason Onset Date Comments Test Results 09/27/2021 Encounter Details Date Type Department Care Team (Late st Contact Info) Description 09/27/2021 Telephone [facility] Primary Care at [address] [address] Yung Michel MD [address] [place] [address] [address] [place] [address] Test Results Social History Tobacco Use Types Packs/Day Years [...] and Family Not on file 09/27/2021 Attends [employer] Not on file 09/27 Active Member [...] staff should administer the PHQ-9) 0 09/24/2021 [facility] [place] of Occupat ional Health - Occupational Stress [...] on file Legal Sex Female 11:24 AM OBSERVER ELECTRICAL PROSPECTING Gender Identity Not on file Sexual Orientation Not on file 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 RVER ELECTRICAL PROSPECTING * Telephone Encounter - ReemarobSophia MA - 09/27/2021 4:19 PM CST ----- Message from Yung Michel MD sent at 09/27/2021 3:58 PM OBSERVER ELECTRICAL PROSPECTING ----- Please relay: the cholesterol and triglycerides are mildly elevated (borderline). Please try to make lifestyle modifications such as: a low carbohydrate diet, daily routine exercise (at least 30 minsa day, 5 days a week of light to moderate cardio) and weight reduction. This will help to reduce hea rt and stroke risk. The liver function, renal function, blood counts, electrolytes are acceptable. Blood sugar is essentially normal. RVER ELECTRICAL PROSPECTING documented in this encounter Plan of Treatment Not on file documented as of this encounter Visit Diagnoses Not on filedocumented in this encounter Care Teams Planning Division Superintendent Relationship Specialty Start Date End Date Yung Michel MD [address] [place] [address] PCP - General Family Medicine 09/24/21 documented as of this encounter
--- OUTSIDE RECORDS SUMMARY | 2024-08-04 16:43 | XMS_ITS | Encounter Summary ---
Author Organization [facility] Medical Group Address [address] [address] Care Team Providers Care Eye Clinic Manager Name Role Phone Yung Michel MD Primary Care Provider [phone] Encounter Details Date Type Department Care Team (Late st Contact Info) Description 10/02/[address] 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 Epic won't let me order, a O2 walk test is necessary. If that info is from outside hospital, I will need that on record before Ican order. DISPATCHER * Telephone Encounter - Nisha Hauser MA - 10/02/2021 4:03 PM EMT DISPATCHER Pt called and stated that she called Med [facility], that is where she gets oxygen and she will get the walker there also, they told her to hold on the smaller oxygen tank because of cost and she may not be on it to much longer. Med [facility] #[phone] DISPATCHER DISPATCHER * Telephone Encounter - Nisha Hauser MA - 10/02/2021 3:23 PM EMT DISPATCHER Spoke to pt, pt stated that she would like to have a smaller Oxygen tank, possible portable tank and a walker with a seat and a basket. I asked the pt to call where she got her oxygen tank and see alyce will switch tanks, if not Dr Michel will put an order in at that time. Pt does not know the name of the company the oxygen tank is from, pt will check on company name. pt voiced understanding. DISPATCHER documented in this encounter Plan of Treatment Not on file documented as of this encounter Visit Diagnoses Diagnosis Poor tolerance for ambulation- Primary documented in this encounter Orders General Supply Count Last Ordered Date First Or dered Date WALKER ROLLING 1 10/08/2021 documented in this encounter Care Teams Eye Clinic Manager Relationship Specialty Start Date End Date Yung Michel MD [address] [place] [address] PCP - General Family Medicine 09/24/21 documented as of this encounter
--- OUTSIDE RECORDS SUMMARY | 2024-08-04 16:43 | XMS_ITS | Encounter Summary ---
Author Organization [facility] Healthcare Address [address] [place] [address] Care Team Providers Care Credit Correspondence Clerk Name Role Phone Yung Michel MD Primary Care Provider [phone]- [phone] Encounter Details Date Type Department Care Team (Late st Contact Info) Description 09/24/2021 7:35 PM DISTRIBUTION LEAD Lab [address] [address] Lipid screening; History of pneumonia; Encounter for hepatitis C screening test for low risk patient Social History Tobacco Use Types Packs/Day Years [...] staff should administer the PHQ-9) 0 09/24/2021 [facility] of Occupat ional Health - Occupational [...] place to sleep or slept in a penitentiary (including now)? No 09/27/2021 Education Answer Date Recorded What is the highest level of school you have completed or the highest degree you have received? 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 N ot on file documented as of this encounter Plan of Treatment Not on file documented as of this encounter Procedures Procedure Name Priority Date/Time Associated Diagnosis Comments EGFR Routine 09/24/2021 3:27 PM DISTRIBUTION LEAD History of pneumonia DIFFERENTIAL AUTO Routine 09/24/2021 3:2 7 PM DISTRIBUTION LEAD History of pneumonia CBC WITH AUTO DIFFERENTIAL Routine 09/24/2021 3:27 PM DISTRIBUTION LEAD History of pneumonia HEPATITIS C ANTIBODY Routine 09/24/2021 3:27 PM DISTRIBUTION LEAD Encounter for hepatitis C screening test for low risk patient LIPID PANEL Routine 09/24/2021 3:27 PM DISTRIBUTION LEAD Lipid screening COMPREHENSIVE METABOLIC PANEL Routine 09/24/2021 3:27 PM DISTRIBUTION LEAD History of pneumonia documented in this encounter Results * eGFR (09/24/2021 3:27 PM DISTRIBUTION LEAD) [facility] eGFR 72 mL/min/1. 73 m2 [facility] Comment: Interpretive Data Reference Interval Normal ?>/= [...] of Race in Diagnosing Kidney Disease, JASN 202). The CKD-EPI equation should not be used for patients with unstable renal function and has not been validated in children and those over 70. Current interpretive data was last reviewed 2021. Blood 09/24/2021 3:27 PM DISTRIBUTION LEAD 09/24/2021 9:26 PM DISTRIBUTION LEAD Yung Michel MD LAB BLOOD ORDERABLES Final Result [facility] [address] Department [place] [address] * Differential, auto (09/24/2021 3:27 PM DISTRIBUTION LEAD) Neutrophil abs 3.2 1.7 - 6.5 K/cumm [facility] Imm gran abs 0.0 0.0 - 0.1 K/cumm [facility] Lymphocyte abs 1.7 0.8 - 3.3 K/cumm [facility] Monocyte abs 0.6 0.2 - 0.8 K/cumm [facility] Eosinophil abs 0.3 0.0 - 0.5 K/cumm [facility] Basophil abs 0.1 0.0 - 0.1 K/cumm [facility] Neutrophil pct 54.5 % [facility] Comment: Interpretive Data Percent cell count reference ranges are not reported, since discordance with absolute values may lead to misinterpretation of CBC data. Current Interpretive Data was last revised on 2017. Imm gran pct 0.2 % [facility] Comment: Interpretive Data Percent cell count reference ranges are not reported, since discordance with absolute values may lead to misinterpretation of CBC data. Current Interpretive Data was last revised on 2017. Lymphocyte pct 29.0 % [facility] Comment: Interpretive Data Percent cell count reference ranges are not reported, since discordance with absolute values may lead to misinterpretation of CBC data. Current Interpretive Data was last revised on 2017. Monocyte pct 10.8 % [facility] Comment: Interpretive Data Percent cell count reference ranges are not reported, since discordance with absolute values may lead to misinterpretation of CBC data. Current Interpretive Data was last revised on 2017. Eosinophil pct 4.6 % [facility] Comment: Interpretive Data Percent cell count reference ranges are not reported, since discordance with absolute values may lead to misinterpretation of CBC data. Current Interpretive Data was last revised on 2017. Basophil pct 0.9 % [facility] Comment: Interpretive Data Percent cell count reference ranges are not reported, since discordance with absolute values may lead to misinterpretation of CBC data. Current Interpretive Data was last revised on 2017. Blood 09/24/2021 3:27 PM DISTRIBUTION LEAD 09/24/2021 9:09 PM DISTRIBUTION LEAD Yung Michel MD LAB BLOOD ORDERABLES Final Result Performing Organization Address [facility] Co de Phone Number [facility] [address] [place] [address] * Hepatitis C antibody (09/24/2021 3:27 PM DISTRIBUTION LEAD) Hep C Ab Nonreactive Nonreactive [facility] Comment: Interpretive Data Nonreactive: Antibodies to [...] revised on 2019. Blood 09/24/2021 3:27 PM DISTRIBUTION LEAD 09/24/2021 9:09 PM DISTRIBUTION LEAD Yung Michel MD LAB MICROBIOLOGY - GENERAL ORDERABLES Final Result Performing Organization Address City/[facility]/ZIP Co de Phone Number [facility] [address] [address] [place] [address] * (ABNORMAL) CBC with auto differential (09/24/2021 3:27 PM DISTRIBUTION LEAD) WBC 5.9 3.8 - 9.9 K/cumm [facility] Hgb 13.2 11.9 - 15.5 g/dL [facility] Hct 42.6 35.6 - 45.5 % [facility] Plt 333 150 - 400 K/cumm [facility] MPV 10.6 9.1 - 12.3 fL [facility] RBC 4.28 3.90 - 5.20 M/cumm [facility] MCV 99.5(H) 81.3 - 96.4 fL [facility] MCH 30.8 27.1 - 33.3 pg [facility] MCHC 31.0(L) 32.3 - 35.7 g/dL [facility] RDW CV 14.2 11.1 - 14.9 % [facility] RDW SD 51.9(H) 35.7 - 48.1 fL [facility] NRBC abs 0.00 0.00 - 0.01 K/cumm [facility] Blood 09/24/2021 3:27 PM DISTRIBUTION LEAD 09/24/2021 9:09 PM DISTRIBUTION LEAD us Yung Michel MD LAB BLOOD ORDERABLES Final Result [facility] [address] [address] Department [place] [address] * Comprehensive metabolic panel (09/24/2021 3:27 PM DISTRIBUTION LEAD) Sodium 142 135 - 145 mmol/L [facility] Potassium, pl 4.1 3.3 - 4.9 mmol/L [facility] Chloride 105 97 - 110 mmol/L [facility] CO2 25 22 - 32 mmol/L [facility] Anion gap 12 2 - 15 mmol/L [facility] BUN 12 8 - 25 mg/dL [facility] Creatinine 0.86 0.60 - 1.10 mg/dL [facility] Glucose 101 70 - 199 mg/dL [facility] Comment: Interpretive Data Fasting glucose >/= 126 [...] Units/L [facility] Blood 09/24/2021 3:27 PM DISTRIBUTION LEAD 09/24/2021 9:09 PM DISTRIBUTION LEAD us Yung Michel MD LAB BLOOD [place] [address] [address] Department [place] [address] * (ABNORMAL) Lipid panel (09/24/2021 3:27 PM DISTRIBUTION LEAD) Cholesterol 211(H) 30 - 199 mg/dL [facility] Comment: [...] revised on 2018. Triglycerides 159(H) <=149 mg/dL [facility] Comment: Interpretive Data [...] on 2018. HDL 51 >=40 mg/dL [facility] Comment: Interpretive Data [...] 2018. LDL, calculated 128 <=129 mg/dL [facility] Comment: Interpretive Data Ages [...] revised on 2018. Non-HDL Cholesterol 160 mg/dL [facility] Comment: Interpretive Data Ages [...] 4 [facility] Blood 09/24/2021 3:27 PM DISTRIBUTION LEAD 09/24/2021 9:09 PM DISTRIBUTION LEAD us Yung Michel MD LAB BLOOD ORDERABLES Final Result Performing Organization Address City/State/ZIP [place] Phone Number [facility] [phone] [place] [address] documented in this encounter Visit Diagnoses Diagnosis Lipid screening Screening for lipoid disorders History of pneumonia Personal history of pneumonia (recurrent) Encounter for hepatitis C screening test for low risk patient documented in this encounter Care Teams Credit Correspondence Clerk Relationship Specialty Start Date End Date Yung Michel MD [address] [place] [address] PCP - General Family Medicine 09/24/21 documented as of this encounter
== END 2024-07-28 13:12 | disposition short-term general hospital (02) ==
PROVIDERS: Emergency Provider Physician Assistant; PCP Family Medicine Adolescent Medicine
DX: S06.310A Contusion and laceration of right cerebrum without loss of consciousness, initial encounter (principal); S06.6X0A Traumatic subarachnoid hemorrhage without loss of consciousness, initial encounter; W22.09XA Striking against other stationary object, initial encounter
CPT/HCPCS: 70450; 72125; 99291; A9270

== ENCOUNTER 2024-11-01 10:56 | Outpatient (CLI) | payer MEDICARE, SELFPAY ==
--- NOTE | ~2024-11-01 | CT_ITS ---
CT head without contrast Indication: Traumatic subarachnoid hemorrhage COMPARISON: 07/28/2024 Technique: Serial scans were obtained through the brain without the administration of contrast. Dose reduction technique was used on this scan by utilizing automated exposure control and iterative recon struction technique. The dose-length product (DLP) was 674.51 mGy-cm. Findings: Previously noted high right parietal intraparenchymal hemorrhage and subarachnoid hemorrhag e is resolved, with posttraumatic encephalomalacia now present in this region. No acute intracranial hemorrhage or mass lesion seen. No acute infarct seen.. The ventricles and subarachnoid spaces are d ilated, consistent with minimal atrophy. Low attenuation regions are seen within the periventricular white matter bilaterally, likely representing changes from chronic microvascular ischemic disease. T here is no evidence of edema, mass effect or midline shift. The visualized paranasal sinuses and ma stoid air cells are clear. 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 No ac rosalinda hemorrhage seen currently. Atrophy and chronic white matter changes, as above. Reviewed, dictated and finalized at location M. 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 No acute hemorrhage seen currently. Atrophy and chronic white matter changes, as above.
== END 2024-11-01 10:57 | disposition home or self-care (01) ==
LOC: MICIMG 10:58
PROVIDERS: PCP Family Medicine; Visit Provider Family Medicine
DX: S06.6X0D Traumatic subarachnoid hemorrhage without loss of consciousness, subsequent encounter (principal); G31.9 Degenerative disease of nervous system, unspecified
CPT/HCPCS: 70450

== ENCOUNTER 2025-07-25 08:04 | Emergency (ER) | payer MEDICARE, SELFPAY ==
--- NOTE | ~2025-07-25 | XR_ITS ---
EXAMINATION: XR knee RT min 4V DATE: 07/25/2025 11:28 INDICATION: Right knee pain and palpable pop TECHNIQUE: Anteroposterior, 2 oblique and crosstable lateral views of the right knee were obtained COMPARISON: None. FINDINGS: Alignment is normal. No fracture. Tricompartmental osteoarthritis, moderate severity at the medial and patellofemoral compartments and mild in the lateral compartment. Small to moderate-sized right knee joint effusion without layering lipohemarthrosis. Soft tissues are unremarkable. IMPRESSION: 1. Moderate medial and patellofemoral compartment predominant tricompartmental osteoarthritis at the right knee. No acute osseous abnormality. 2. Small to moderate sized right knee joint effusion. Reviewed, dictated and finalized at location A. VE MAKER
--- OUTSIDE RECORDS SUMMARY | 2025-07-25 08:08 | XMS_ITS | Clinical Summary ---
Author Organization [facility] [place] [address] [place] [address] Care Team Providers Care Poster Name Role Phone Yung Michel MD Primary Care Provider Allergies No known active allergies Medications multivitamin capsule Take 1 capsule by mouth daily Active aspirin 81 mg enteric coated tablet Take 1 tablet (81 mg total) by mouth daily Active acetaminophen (TYLENOL) 325 mg tablet Take 2 tablets (650 mg total) by mouth every 6 (six) hours as needed 4 Active ondansetron ODT (ZOFRAN-ODT) 4 mg disintegrating tablet Take 1 tablet (4 mg total) by mouth every 6 (six) hours as needed 4 Active loratadine (CLARITIN) 10 mg tablet Take 1 tablet (10 mg total) by mouth daily as needed for allergies 30 tablet 5 Active triamcinolone (KENALOG) 0.1 % ointmentIndication s:Insect bite, unspecified site, subsequent encounter Apply topically 2 (two) times a day for 10 days Avoid face and genital area 30 g 5 Active Active Problems Problem Noted Date Diagnosed Date Balance problems 03/10/2025 Osteopenia of both hips 03/10/2025 Constipation, unspecified 08/15/2024 Hypo-osmolality and hyponatremia 08/15/2024 Traumatic subarachnoid hemor rhage without loss of consciousness, subsequent encounter 08/15/2024 Assessment & Plan (09/01/2024 1:41 PM TECHNICIAN TERMINAL AND REPEATER): Neuraxis is fine, no ongoing deficit noted We might need to repeat the CT if not done by specialist I advised her she can drive in town for now, but hold off on attempted highway driving for another couple weeks Would like to repeat CT before resuming aspirin fully Unspecified urinary incontinence 08/15/2024 Unspecified visual disturbance 08/15/2024 Other amnesia 08/01/2024 Alopecia 12/04/2021 Encounter for Medicare annual wellness exam 09/04 [...] months Assessment & Plan (09/29/2022 10:33 AM TECHNICIAN TERMINAL AND REPEATER): A(n) yearly Medicare Annual Wellness Visit has [...] year Assessment & Plan (09/27/2021 3:55 PM TECHNICIAN TERMINAL AND REPEATER): A initial Medicare Annual Wellness Visit has been performed today. Tamara Lion is not up to date on screening tests. She is in need of DEXA, Breast cancer screening and Colon cancer screening- these have been ordered. She is up to date on needed preventative vaccinations BP is controlled Labs as ordered Continue Yolanda vitamin D Zinc, I think we can probably put that one up now. A good multivitamin- multimineral like Centrum should provide enough of that mineral DEXA, mammogram ordered for Ed Colonoscopy ordered () with Dr. 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 Circulation appears adequate (good ankle and foot pulses). Focus on leg strengthening exercises (walking, for example) to build tone and help venous return to the heart Eliquis samples given. Will research the savings options (medicare doesn't allow savings cards from the cooker sulfite, however). GoodRx was not much of a savings either. BP is controlled Checking thyroid function Given the combined pulmonary embolism and DVT, plus the rough course of Covid (virus leaves lingering elevated risk for clots), it would make better sense to leave Eliquis in place. Immunizations Immunization Administration Dates Next Due Influenza, Trivalent, High [...] No 09/27/2021 Social Connection and Isolation Panel Answer Date Recorded Frequency of Communication with Friends [...] drink containing alc ohol? Monthly or less 03/10/2025 Q2: How many drinks containi ng alcohol do you have on a typical day when you are drinking? 1 or 2 03/10/2025 Q3: How often do you have si x or more drinks on one occasion? Never 03/10/2025 Overall Financial Resource Strain (CARDIA) Answe r Date Recorded How hard is it for you to pa y for the very basics like food, housing, medical care, and heating? Not hard at all 09/27/2021 PHQ-2 Answer Date Recorded PHQ-2 Total Score (If total score is 3 or more points, staff should administer the PHQ-9) 0 03/10/2025 [facility] [place] of Occupat ional Health - Occupational Stress [...] place to sleep or slept in a chcf (including now)? No 09/27/2021 Education Answer Date Recorded What is the highest level of school you have completed or the highest degree you have received? 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 N ot on file Last Filed Vital Signs Vital Sign Reading Time Taken Comments Blood Pressure 102/70 03/13/2025 3:05 PM CDT Pulse 80 03/13/2025 3:05 PM CDT Temperature 36.8 C (98.3 F) 03/13/2025 3:05 PM CDT Respiratory Rate 20 03/13/2025 3:05 PM CDT Oxygen Saturation 98% 03/13/2025 3:05 PM CDT Inhaled Oxygen Concentration - - Weight 76.7 kg (169 lb) 03/13/2025 3:05 PM CDT Height 160 cm (5' 3) 03/13/2025 3:05 PM CDT Body Mass Index 29.94 03/13/2025 3:05 PM CDT Plan of Treatment Health Maintenance Due Date Last Done Comments Colon Cancer Screening-Colonoscopy 1950 Zoster Vaccine (1 of 2) 11/20/1999 Osteoporosis Screening-Bone Density Scan 12/04/2023 12/03/2021 Influenza Vaccine (#1) 2025 05/13/2016 Depression Screening 03/10/2026 03/10/2025, 08/24/2024, 03/10/2024, Additional history exists Fall Risk Assessment 03/10/2026 03/10/2025, 03/10/2024, 09/29/2022, Additional history exists Well Visit 65+ 03/10/2026 03/10/2025, 08/03/2024, 09/29/2022, Additional history exists DTaP/Tdap/Td Vaccine (2 - Td or Tdap) 05/13/2026 05/13/2016 Hepatitis C Screening Completed 09/24/2021 Hepatitis B Screening Completed 03/10/2024 Pneumococcal vaccine 65+ Discontinued Procedures Procedure Name Priority Date/Time Associated Diagnosis Comments DEXA AXIAL SKELETON BONE DENSITY 1 OR MORE SITES Schedule Routine, Read Routine (OP Routine) 12/03/2021 1:36 PM CDT Screening for osteoporosis group home (current) use of systemic steroids HEPATITIS C ANTIBODY Routine 09/24/2021 3:27 PM TECHNICIAN TERMINAL AND REPEATER Encounter for hepatitis C screening test for low risk patient from Last 3 Months or Most Recently Relevant to Health Maintenance Results * Dexa Axial Skeleton Bone Density 1 Or 2 Site (12/03/2021 1:36 PM CDT) Anatomical Region Laterality Modality Body N/A Other 12/03/2021 9:26 PM CDT Narrative 12/03/2021 9:27 PM CDT EXAM DESCRIPTION: DEXA AXIAL SKELETON BONE DENSITY 1 OR MORE SITES REASON FOR STUDY: 71 y/o year old F with given history of screening. 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 FRAX is a World Health Organization validated fracture risk assessment tool that calculates a person's 10 year probability of a major osteoporosis related fracture and hip fracture. According to the National Osteoporosis Foundation guidelines, postmenopausal [...] Raul Conklin M.D. MF: SHERIE Report ID: [id number] Reading Location: [id number] Procedure Note Raul Conklin MD - 12/03/2021 EXAM DESCRIPTION: DEXA AXIAL SKELETON BONE DENSITY 1 OR MORE SITES REASON FOR STUDY: 71 y/o year old F with given history ofscreening. 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 MF: SHERIE Report ID: [id number] Reading Location: [id number] Yugn Michel MD IMG DXA PROCEDURES Final Re sult * Hepatitis C antibody (09/24/2021 3:27 PM TECHNICIAN TERMINAL AND REPEATER) Hep C Ab Nonreactive Nonreactive RICHARD ZAPATA Comment: Interpretive Data Nonreactive: Antibodies to HCV not detected. Does NOT exclude the possibility of recent exposure to HCV. Equivocal: Equivocal for HCV antibodies. Supplemental molecular testing will be automatically performed to determine infection status in accordance with current CDC screening recommendations. Reactive: Positive for HCV antibodies. This may represent current or past HCV infection. Supplemental molecular testing will be automatically performed to determine current infection status in accordance with current CDC screening recommendations. Interpretive data was last revised on 2019. Blood 09/24/2021 3:27 PM TECHNICIAN TERMINAL AND REPEATER 09/24/2021 9:09 PM TECHNICIAN TERMINAL AND REPEATER Yung Michel MD LAB MICROBIOLOGY - GENERAL ORDERABLES Final Result Performing Organization Address City/State/[facility] Co de Phone Number RICHARD [phone] [address] Department of Laboratories [place] [phone] from Last 3 Months or Most Recently Relevant to [place] [address] [place] [address] [employer] SENIOR [place] [address] MEDICARE AET[employer] SENIOR SUPPLEMENT Care Teams Poster Relationship Specialty Start Date End Date Yung Michel MD [facility] [place] [address] PCP - General Family Medicine 09/24/21
--- OUTSIDE RECORDS SUMMARY | 2025-07-25 08:08 | XMS_ITS | Encounter Summary ---
Author Organization [facility] Healthcare Address [address] [place] [address] Care Team Providers Care Industrial Cleaner Name Role Phone Yung Michel MD Primary Care Provider [phone] Encounter Details Date Type Department Care Team (Late st Contact Info) Description 12/02/2021 Telephone [facility] [address] [place] [address] Harika Hawkins, RT Social History Tobacco Use [...] and Family Not on file 09/27/2021 Attends [employer] Not on file 09/27 Active Member [...] staff should administer the PHQ-9) 0 09/24/2021 [facility] of Occupat ional Health - Occupational Stress [...] place to sleep or slept in a custodial (including now)? No 09/27/2021 Education Answer Date Recorded What is the highest level of school you have completed or the highest degree you have received? 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
--- OUTSIDE RECORDS SUMMARY | 2025-07-25 08:08 | XMS_ITS | Clinical Summary ---
Author Organization [facility] [place] Address [address] [place] [address] Care Team Providers Care Decorator Street And Building Name Role Phone (Ch), [facility] Primary Care Provid er Unavailable Source Comments [facility],non-owned Affiliates and Associated Physician Practices is amultiple site organization consisting of ambulatory clinics and hospital sitesin [place], [place], [place] and [place]. This disclosure is being madepursuant to the Care Everywhere program and may not contain all information available regarding this patient. Last updated 18.[facility] Allergies No known active allergies Medications * Be aware that medications may not be up to date on this document. Alwaysverify current medications with the patient. acetaminophen (Tylenol) 325 MG tablet Take 2 (two) tablets by mouth every 6 hours as needed Maximum allowable Acetaminophen amount = 4 Grams (4000 mg) / 24 hours. 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 Never 07/29/2024 Q2: How many drinks containi ng alcohol do you have on a typical day when you are drinking? Patient does not drink Q3: How often do you have si x or more drinks on one occasion? Never 07/29/2024 Overall Financial Resource Strain (CARDIA) Answe r Date Recorded How hard is it for you to pa y for the very basics like food, housing, medical care, and heating? Not hard at all 07/29/2024 [facility] [place] of Occupat ional Health - Occupational Stress Questionnaire Answer Date Recorded Do you feel stress - tense, restless, nervous, or anxious, or unable to sleep at night because your mind is troubled all the time - these days? Not at all 07/29/2024 Hunger Vital Sign Answer Date Recorded Within the past 12 months, y ou worried that your food would run out before you got the money to buy more. Never true 07/29/20 24 Within the past 12 months, t he food you bought just didn't last and you didn't have money to get more. Never true 07/29/2024 PRAPARE - Transportation Answer Date Re corded In the past 12 months, has l ack of transportation kept you from medical appointments or from getting medications? No 07/04 In the past 12 months, has l ack of transportation kept you from meetings, work, or from getting things needed for daily living? No 07/29/2024 Housing Stability Vital Sign Answer Agus e Recorded In the last 12 months, was t here a time when you were not able to pay the mortgage or rent on time? No 07/29/2024 In the past 12 months, how m any times have you moved where you were living? 0 07/29/2024 At any time in the past 12 m [facility], were you homeless or living in a penitentiary (including now)? No 07/29/2024 Comments Unknown Sex and Gender Information Value Date Recorded Sex Assigned at Not on file Legal Sex Female 10:36 AM ADOPTION COORDINATOR Gender Identity Not on file Sexual Orientation Not on file Last Filed Vital Signs Vital Sign Reading Time Taken Comments Blood Pressure 118/83 08/01/2024 11:29 AM ADOPTION COORDINATOR Pulse 78 08/01/2024 11:29 AM ADOPTION COORDINATOR Temperature 36.7 C (98 F) 08/01/2024 11:29 AM ADOPTION COORDINATOR Respiratory Rate 18 08/01/2024 11:2 9 AM ADOPTION COORDINATOR Oxygen Saturation 97% 08/01/2024 11: 29 AM ADOPTION COORDINATOR Inhaled Oxygen Concentration - - Weight 77.5 kg (170 lb 12.8 oz) 08/01/2024 4:12 AM ADOPTION COORDINATOR Height 160 cm (5' 2.99) 07/29/2024 12: 06 AM ADOPTION COORDINATOR Body Mass Index 30.26 07/29/2024 12:06 AM ADOPTION COORDINATOR Plan of Treatment Health Maintenance Due Date Last Done Comments COLOGUARD (AGES 45-75) - COL ON CA SCREENING 1950 COLON MONITORING 1949 COLONOSCOPY - COLON CA SCREENING [address] CT COLONOGRAPHY - COLON CA SCREENING 1950 Colorectal Cancer Screening 1950 FIT - COLON CA SCREENING 1949 FLEX SIG - COLON CA SCREENING 1949 LIPID TESTING 1950 MAMMOGRAM 1950 MEDICARE AWV 12 MONTHS 1950 HEPATITIS C SCREENING 11/15/1967 DTAP/TDAP/TD VACCINES (1 - Tdap) 1968 PNEUMOCOCCAL VACCINE 50+ (1 of 1 - PCV) 11/20/1999 ZOSTER VACCINE (1 of 2) 11/20/1999 DEPRESSION SCREENING 08/03/2024 Respiratory Syncytial Virus (RSV) Vaccine Pt: or over 60 yrs (1 - 1-dose 75+ series) 2024 COVID-19 VACCINE ( - 2024-2 6 season) 2025 INFLUENZA VACCINE (#1) 2025 05/13/2016 BONE DENSITY TESTING Completed 12/03/2021 HEPATITIS B VACCINE Aged Out No longe r eligible based on patient's age to complete this topic HIB VACCINE Aged Out No longer eligi ble based on patient's age to complete this topic HPV VACCINE Aged Out No longer eligi ble based on patient's age to complete this topic MENINGOCOCCAL (Group B) VACC INE SHARED DECISION-MAKING Aged Out No longer eligibl e based on patient's age to complete this topic MENINGOCOCCAL GROUPS A/C/Y/W VACCINE Aged Out No longer eligible b ased on patient's age to complete this topic Insurance MEDICARE AETNA Advance Directives * Full Code (Latest Code Status on File) Date Activated Date Inactivated Comments 07/28/2024 9:07 PM 08/01/2024 6:45 PM Care Teams Decorator Street And Building Relationship Specialty Start Date End Date (), [address] [address] PCP - General 07/28/24
--- OUTSIDE RECORDS SUMMARY | 2025-07-25 08:08 | XMS_ITS | Encounter Summary ---
Author Organization [facility] Address [address] [facility] [place] [address] Care Team Providers Care Bottle Blower Name Role Phone (Ch), [facility] Primary Care Provid er Unavailable Encounter Details Date Type Department Care Team (Late st Contact Info) Description 07/29/2024 Ophth Exam [facility] - Ophthalmology [address] [place] [address] Emanuel Masterson MD [address] [facility] [place] [address] Social History Tobacco Use Types Packs/Day Years [...] and heating? Not hard at all 07/29/2024 [facility] [place] of Occupat ional Health - Occupational Stress [...] any time in the past 12 m [facility], were you homeless or living in a residential (including now)? No 07/29/2024 Comments Unknown Sex and Gender Information Value Date Recorded Sex Assigned at Not on file Legal Sex Female 10:36 AM MARRIAGE AND FAMILY SOCIAL WORKER Gender Identity Not on file Sexual Orientation Not on file documented as of this encounter Functional Status * Is person deaf or have serious hearing difficulty? Answer Date of Assessment Author No 07/29/2024 5:20 PM Juana Dubois RN * Is person blind or have serious difficulty seeing? Answer Date of Assessment Author Yes 07/29/2024 5:20 PM Juana Dubois RN * Does person have serious difficulty walking/climbing stairs? Answer Date of Assessment Author No 07/29/2024 5:20 PM Juana Dubois RN * Does person have difficulty dressing/bathing? Answer Date of Assessment Author No 07/29/2024 5:20 PM Juana Dubois RN * Does person have difficulty doing errands alone? Answer Date of Assessment Author No 07/29/2024 5:20 PM Juana Dubois RN documented as of this encounter Mental Status * Does person have difficulty concentrating/remembering/making decisions? Answer Entry Date Author No 07/29/2024 5:20 PM Juana Dubois RN documented in this encounter Plan of Treatment Not on file documented as of this encounter Visit Diagnoses Not on filedocumented in this encounter Care Teams Bottle Blower Relationship Specialty Start Date End Date (Ch), [address] [address] PCP - General 07/28/24 documented as of this encounter
[2025-07-25 08:14] VITALS: BP 119/72; PULSE 77; RESP 16; TEMP 36.6; O2SAT 97
--- OUTSIDE RECORDS SUMMARY | 2025-07-25 12:00 | XMS_ITS | Encounter Summary ---
Author Organization [facility] Address [address] [place] [address] Care Team Providers Care Equipment Maintenance Engineer Name Role Phone (Ch), [facility] Primary Care Provid er Unavailable Encounter Details Date Type Department Care Team (Late st Contact Info) Description 07/29/2024 Ophth Exam [facility] - Ophthalmology [address] [place] [address] Emanuel Masterson MD [address] [facility] [place] [address] Social History Tobacco Use Types [...] and heating? Not hard at all 07/29/2024 [facility] [place] of Occupat ional Health - Occupational Stress [...] any time in the past 12 m [facility], were you homeless or living in a longterm (including now)? No 07/29/2024 Comments Unknown Sex and Gender Information Value Date Recorded Sex Assigned at Not on file Legal Sex Female 10:36 AM HOME HEALTH CARE SOCIAL WORKER Gender Identity Not on file [...] on filedocumented in this encounter Care Teams Equipment Maintenance Engineer Relationship Specialty Start Date End Date (Ch), [address] [address] PCP - General 07/28/24 documented as of this encounter
--- OUTSIDE RECORDS SUMMARY | 2025-07-25 12:00 | XMS_ITS | Clinical Summary ---
Author Organization [facility] [place] Address [address] [facility] [place] [address] Care Team Providers Care Sports Coordinator Name Role Phone (Ch), [facility] Primary Care Provid er Unavailable Source Comments [facility],non-owned Affiliates and Associated Physician Practices is amultiple site organization consisting of ambulatory clinics and hospital sitesin [place], [place], [place] and [place]. This disclosure is being madepursuant to the Care Everywhere program and may not contain all information available regarding this patient. Last updated 18.[facility] Allergies No known active allergies Medications * [...] and heating? Not hard at all 07/29/2024 [facility] of Occupat ional Health - Occupational Stress [...] any time in the past 12 m [facility], were you homeless or living in a longterm (including now)? No 07/29/2024 Comments Unknown Sex and Gender Information Value Date Recorded Sex Assigned at Not on file Legal Sex Female 10:36 AM OPERATIONS MANAGER/COORDINATOR Gender Identity Not on file Sexual Orientation Not on file Last Filed Vital Signs Vital Sign Reading Time Taken Comments Blood Pressure 118/83 08/01/2024 11:29 AM OPERATIONS MANAGER/COORDINATOR Pulse 78 08/01/2024 11:29 AM OPERATIONS MANAGER/COORDINATOR Temperature 36.7 C (98 F) 08/01/2024 11:29 AM OPERATIONS MANAGER/COORDINATOR Respiratory Rate 18 08/01/2024 11:2 9 AM OPERATIONS MANAGER/COORDINATOR Oxygen Saturation 97% 08/01/2024 11: 29 AM OPERATIONS MANAGER/COORDINATOR Inhaled Oxygen Concentration - - Weight 77.5 kg (170 lb 12.8 oz) 08/01/2024 4:12 AM OPERATIONS MANAGER/COORDINATOR Height 160 cm (5' 2.99) 07/29/2024 12: 06 AM OPERATIONS MANAGER/COORDINATOR Body Mass Index 30.26 07/29/2024 12:06 AM OPERATIONS MANAGER/COORDINATOR Plan of Treatment Health Maintenance Due Date [...] 9:07 PM 08/01/2024 6:45 PM Care Teams Sports Coordinator Relationship Specialty Start Date End Date (), [address] [address] PCP - General 07/28/24
--- OUTSIDE RECORDS SUMMARY | 2025-07-25 12:01 | XMS_ITS | Clinical Summary ---
Author Organization [facility] [address] [place] [address] Care Team Providers Care Equipment Tester Name Role Phone Yung Michel MD Primary [...] 08/15/2024 Assessment & Plan (09/01/2024 1:41 PM WASTE DISPOSAL LEAKAGE TESTER): Neuraxis is fine, no ongoing deficit noted [...] months Assessment & Plan (09/29/2022 10:33 AM WASTE DISPOSAL LEAKAGE TESTER): A(n) yearly Medicare Annual Wellness Visit has [...] year Assessment & Plan (09/27/2021 3:55 PM WASTE DISPOSAL LEAKAGE TESTER): A initial Medicare Annual Wellness Visit has [...] (09/24/2021): Added automatically from request for surgery [id number] Resolved Problems Problem Noted Date Diagnosed Date [...] (medicare doesn't allow savings cards from the mandarin speaking nanny, however). GoodRx was not much of a [...] and Family Not on file 09/27/2021 Attends [employer] Not on file 09/27 Active Member [...] staff should administer the PHQ-9) 0 03/10/2025 [facility] Occupat ional [facility] - Occupational Stress [...] on file Legal Sex Female 11:24 AM WASTE DISPOSAL LEAKAGE TESTER Gender Identity Not on file Sexual Orientation [...] 12/03/2021 1:36 PM CDT Screening for osteoporosis detention (current) use of systemic steroids HEPATITIS C ANTIBODY Routine 09/24/2021 3:27 PM WASTE DISPOSAL LEAKAGE TESTER Encounter for hepatitis C screening test for [...] old F with given history of screening. Wheel Aligner/Model: Foodist (S/N [id number]) CLINICAL INFORMATION: Current height: 63 inches Maximum [...] Raul Conklin M.D. MF: SHERIE Report ID: [id number] Reading Location: [id number] Procedure Note Raul Conklin MD - 12/03/2021 EXAM DESCRIPTION: DEXA AXIAL SKELETON BONE DENSITY 1 OR MORE SITES REASON FOR STUDY: 71 y/o year old F with given history ofscreening. Wheel Aligner/Model: Foodist (S/N [id number]) CLINICAL INFORMATION: Current height: 63 inches Maximum [...] Raul Conklin M.D. MF: SHERIE Report ID: [id number] Reading Location: [id number] Yung Michel MD IMG DXA PROCEDURES Final Re sult * Hepatitis C antibody (09/24/2021 3:27 PM WASTE DISPOSAL LEAKAGE TESTER) Hep C Ab Nonreactive Nonreactive RICHARD ZAPATA [...] revised on 2019. Blood 09/24/2021 3:27 PM WASTE DISPOSAL LEAKAGE TESTER 09/24/2021 9:09 PM WASTE DISPOSAL LEAKAGE TESTER Yung Michel MD LAB MICROBIOLOGY - GENERAL ORDERABLES Final Result Performing Organization Address City/State/[facility] Co de Phone Number RICHARD [phone] [address] Department of Laboratories [place] [phone] from Last 3 Months or Most Recently Relevant to Health [place] [address] [place] [address] [employer] S[employer]IOR [place] [address] MEDICARE [employer] SENIOR SUPPLEMENT Care Teams Equipment Tester Relationship Specialty Start Date End Date Yung Michel MD [facility] [place] [address] [place] [address] PCP - General Family Medicine 09/24/21
--- OUTSIDE RECORDS SUMMARY | 2025-07-25 12:01 | XMS_ITS | Encounter Summary ---
Author Organization [facility] Healthcare Address [address] [place] [address] Care Team Providers Care Electric Tape Slitter Name Role Phone Yung Michel MD Primary Care Provider [phone] Encounter Details Date Type Department Care Team (Late st Contact Info) Description 12/02/2021 Telephone [facility] [address] [place] [address] Harika Hawkins, RT Social History Tobacco Use [...] and Family Not on file 09/27/2021 Attends [employer] Services Not on file 09/27 Active Member [...] staff should administer the PHQ-9) 0 09/24/2021 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
--- NOTE | 2025-07-25 12:49 | ED_ITS ---
HPI - General Adult General Chief complaint: Extremity Problem,Nontraumatic Stated complaint: R knee pain Time Seen by Provider: 07/25/25 11:34 History of Present Illness HPI narrative: 74-year-old female present to the emergency department for evaluation of acute on chronic right knee pain. Patient states she does have history of osteoarthritis in the affected knee. Patient states that she does have intermittent instability of the knee. Patient states that she got out of her vehicle yesterday and had onset of right knee pain. Patient does have an associated effusion. Related Data Allergies Allergy/AdvReac Type Severity Reaction Status Date / Time No Known Allergies Allergy Verified 07/25/25 08:13 Review of Systems Review of Systems: All systems reviewed & are unremarkable except as noted in HPI and below PMFSH Past Medical History Medical History Left-sided neglect Urinary incontinence No significant medical problems Surgical History Surgical History No history of previous surgery Family History Family History Father , Age 75 Fletcher's lung Mother , Age 70 Heart failure Social History Social History Social History: She lives at home with her of 50 years. 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 She has 2 adult sons who are in good health. She rarely drinks alcohol and only in smal l amounts. Primary care physician: Dr. Mendoza Graff Code status: Full code Surrogate decision maker: Smoking status: Never smoker Second hand tobacco smoke exposure: No Alcohol intake: current Drinks per week: 1 Substance use: never Substance use type: does not use Lack of Transportation: No Lack of Food: Never True Current Housing: I Have Housing Concerned About Future Housing: No Difficulty Paying Gas/Electric Bills: No Difficulty Paying for Meds: No Currently Unemployed: No Education: Bachelor's Degree Difficulty w/ Childcare or Family Care: No Spiritual care concerns: No Exam Narrative: APPEARANCE: Well appearing, no pain, no distress, well-nourished. HEAD: normocephalic, atraumatic. EYES: PERRLA/EOMI, conjunctivae clear. NECK: Supple. No adenopathy, no masses. RESPIRATORY: Airway patent, respirations nonlabored. Clear to auscultation bilaterally, no rales, rhonchi, wheezing. CARDIOVASCULAR: Regular rate and rhythm without murmurs rubs or gallops. ABDOMINAL: Soft, nontender, nondistended, normal bowel sounds MUSCULOSKELETAL: Right knee effusion NEURO: Alert. Cranial nerves II through XII intact. Good gait. Good coordination SKIN: Warm, dry. Normal Color Course Vital Signs Vital signs: Vital Signs Temperature 97.8 F 07/25/25 08:14 Pulse Rate 77 07/25/25 08:14 Respiratory Rate 16 07/25/25 08:14 Blood Pressure 119/72 07/25/25 08:14 Pulse Oximetry 97 07/25/25 08:14 Oxygen Delivery Room Air 07/25/25 08:14 Temperature 98 F 07/25/25 13:51 Pulse Rate 84 07/25/25 13:51 Respiratory Rate 18 07/25/25 13:51 Blood Pressure 130/84 07/25/25 13:51 Pulse Oximetry 99 07/25/25 13:51 Oxygen Delivery Room Air 07/25/25 08:14 [facility] MDM Narrative Medical decision making narrative: 74-year-old female presents to the emergency department for evaluation for right knee pain. X-ray was negative for acute fracture dislocation. X-ray showed moderate medial and patellofemoral compartment predominant tricompartmental osteoarthritis at the right knee. No acute osseous abnormality. Patient was pr ovided a knee immobilizer and patient was able to ambulate. Patient was encouraged of close follow-up with her primary care physician for additional outpatient imaging including an MRI. Patient is also provided outpatient follow-up with Orthopedics. Differential Diagnosis Differential Diagnosis: Internal derangement of the knee, knee contusion, knee fracture, septic arthritis, patellar tendon injury, patellar dislocation Imaging Data Radiologist's impression: ITS Impressions Knee X-Ray 07/25/25 11:36 IMPRESSION: 1. Moderate medial and patellofemoral compartment predominant tricompartmental osteoarthritis at the right knee. No acute osseous abnormality. 2. Small to moderate sized right knee joint effusion. Discharge Plan Discharge Clinical Impression: Osteoarthritis, Internal derangement of knee Patient Disposition: Home Condition: Stable Instructions: Antibiotic Form, Knee Immobilizer (ED) Additional Instructions: Knee immobilizer for comfort. Limited weight-bearing as tolerated on the affected knee. Have close follow-up with your primary care physician and with your orthopedic physician for additional outpatient imaging to further evaluate the knee. Patient Language: Kinyarwanda Prescriptions: No Action Artificial Tears([id number]) 1-0.2-0.2 % Drops 1 drp EACH EYE QID PRN (Reason: Dry Eye(S)) Qty: 30 0RF sennosides 8.6 mg tablet 8.6 mg PO DAILY PRN (Reason: constipation) Qty: 30 0RF acetaminophen 325 mg tablet 650 mg PO Q6H PRN (Reason: unknown) Qty: 90 0RF polyethylene glycol 3350 17 gram/dose powder 17 g PO DAILY PRN (Reason: constipation) Qty: 30 0RF ondansetron 4 mg tablet,disintegrating 4 mg PO Q6H PRN (Reason: nausea and vomiting) Qty: 30 0RF Follow-up/Referrals: Anand,Yung Jewell MD [Primary Care Provider, Unknown] Rui Knott MD [Physician, Orthopedics]
[2025-07-25 13:51] VITALS: BP 130/84; PULSE 84; RESP 18; TEMP 36.6; O2SAT 99
== END 2025-07-25 13:52 | disposition home or self-care (01) ==
PROVIDERS: Emergency Provider Emergency Medicine; PCP Family Medicine
DX: M17.11 Unilateral primary osteoarthritis, right knee (principal); M23.91 Unspecified internal derangement of right knee
CPT/HCPCS: 73564; 99283